=== PATIENT | female | born 1945 | race Caucasian/White ===

== ENCOUNTER 2019-12-23 11:45 | Outpatient (CLI) | payer MEDICARE, OTHER, SELFPAY ==
--- NOTE | ~2019-12-23 | XR_ITS ---
XR hip RT 2V w AP pelvis 12/23/2019 12:20 Indication: Right hip pain Procedure: AP pelvis and 2 views right hip Comparison: No prior studies for comparison. Findings: Pelvic rings are intact. Sacral foramen are symmetric. No fracture or traumatic malalignmen t. There is osteitis pubis. Normal anatomic alignment. No significant joint space narrowing. Impression: 1: No significant bone or joint abnormality. Reviewed, dictated and finalized at location A. Impression: 1: No significant bone or joint abnormality.
[2019-12-23 12:47] LABS: Basophils Absolute Auto 0.1 K/mm3 (0.0-0.1); Basophils Percent Auto 0.7 % (0.2-1.2); Eosinophils Absolute Auto 0.4 K/mm3 (0-0.3); Eosinophils Percent Auto 3.5 % (0-4.4); Hematocrit 39.1 % (37.0-47.0); Hemoglobin 12.9 g/dL (12.0-15.0); Immature Granulocyte Absolute 0.03 K/mm3 (0.00-0.031); Immature Granulocyte Percent A 0.3 % (0-0.5); Lymphocytes Absolute Auto 3.28 K/mm3 (0.9-3.2); Mean Corpuscular Hemoglobin 31.2 pg (26-34); Mean Corpuscular Volume 94.4 fl (80-100); Mean Platelet Volume 9.2 fl (7.4-10.4); Monocytes Absolute Auto 0.6 K/mm3 (0.1-0.6); Monocytes Percent Auto 6.1 % (2.6-8.5); Neutrophils Absolute Auto 5.9 K/mm3 (1.3-6.7); Neutrophils Percent Auto 57.4 % (45.5-73.1); Platelet Count Result 340 k/mm3 (150-375); Red Blood Count 4.14 M/mm3 (4.2-5.4); Red Cell Distribution Width 12.7 % (11.5-14.5); White Blood Count 10.3 K/mm3 (4.5-10.0)
[2019-12-23 12:58] LABS: Alanine Aminotransferase 24 U/L (4-35); Albumin Level 4.2 g/dL (3.5-5.1); Alkaline Phosphatase 85 U/L (38-126); Aspartate Amino Transferase 32 U/L (14-36); Bilirubin,Total 0.4 mg/dL (0.2-1.3); Blood Urea Nitrogen 13 mg/dL (7-17); Calcium 9.2 mg/dL (8.4-10.2); Carbon Dioxide 28 mmol/L (22-30); Chloride 103 mmol/L (98-107); Cholesterol 115 mg/dL (0-200); Estimated Glomerular Filt Rate > 60; Glucose 99 mg/dL (65-105); HDL Direct 52 mg/dL; Sodium 137 mmol/L (137-145); Triglycerides 133 mg/dL (<150)
[2019-12-23 13:09] LABS: LDL Cholesterol Direct 40 mg/dL
[2019-12-23 13:40] LABS: Vitamin D 25 Hydroxy 61.4 ng/mL
[2019-12-27 15:51] LABS: Vitamin B6 34.9 ng/mL (2.1-21.7)
== END 2019-12-23 11:46 | disposition home or self-care (01) ==
LOC: ANHIMG 12:07
PROVIDERS: PCP Family Medicine; Visit Provider Nurse Practitioner
DX: R53.83 Other fatigue (principal); E53.8 Deficiency of other specified B group vitamins; E03.9 Hypothyroidism, unspecified; Z13.220 Encounter for screening for lipoid disorders; E55.9 Vitamin D deficiency, unspecified; Z13.6 Encounter for screening for cardiovascular disorders; E53.9 Vitamin B deficiency, unspecified; M25.551 Pain in right hip
CPT/HCPCS: 36415; 73502; 73521; 80053; 80061; 82306; 82607; 84207; 84443; 85025

== ENCOUNTER 2020-03-02 15:18 | Outpatient (CLI) | payer MEDICARE, OTHER, SELFPAY ==
--- NOTE | ~2020-03-02 | CT_ITS ---
EXAMINATION: CT brain wo con INDICATION: Headache COMPARISON: None TECHNIQUE: Standard unenhanced head CT. The dose-length product (DLP) was 605.33 mGy-cm. The mA was a djusted according to patient size. Iterative reconstruction technique was employed. FINDINGS: There is no acute intraparenchymal hemorrhage. No evidence of mass lesion. No evidence of a cute infarction. There is mild periventricular and subcortical hypodensity probably related to small vessel ischemic disease. There is mild prominence of the sulci and ventricles related to cerebral atr ophy. Intracranial calcified cerebral atherosclerosis is noted. There are no extra-axial collections. There is no mass effect or midline shift. The orbits and soft tissues are unremarkable. The visuali zed sinuses and mastoid air cells are well aerated. IMPRESSION: 1. No acute intracranial abnormality. 2. Age related findings. Reviewed, dictated and finalized at location A.
== END 2020-03-02 15:19 | disposition home or self-care (01) ==
LOC: ANHIMG 15:27
PROVIDERS: PCP Family Medicine; Visit Provider Nurse Practitioner
DX: R51 Headache (principal)
CPT/HCPCS: 70450

== ENCOUNTER 2020-04-16 08:02 | Outpatient (CLI) | payer MEDICARE, OTHER, SELFPAY ==
--- NOTE | 2020-04-16 08:46 | EST_ITS ---
Patient Info Name: Florecita Lane Age: 74 years : 1945 Gender: Female Ht: 60 in Wt: 130 lbs BSA: 1.59 m2 Technical Quality: Good Exam Date: 04/16/2020 9:31 AM Exam Location: [facility] Patient Status: Outpatient Admit Date: 04/16/2020 Staff Ordering Physician: Susu Trujillo NP Senior Embedded Software Engineer: Myra Steele RDCS Attending Provider: JOVANY BRAY DO Referring Physician: Ronnie MARTINEZ; Exercise Technologist: Rocío Belle RDCS Exercise Physician: Jovany Bray DO Exam Type: CA stress echo Study Info Indications I95.1 - ORTHOSTATIC HTN Treadmill exercise stress echocardiogram is performed. Summary 1. 1. Negative Enrique exercise stress test for ischemic ST changes by ECG criteria. 2. 2. Good functional capacity, achieving 8 METs of workload. 3. 3. Appropriate HR response to exercise. 4. 4. Appropriate HR recovery at 1 minute post exercise. 5. 5. Negative stress echocardiogram for ischemia by wall motion analysis. 6. 6. Patient informed of the above results. Stress Echo Findings Left Ventricle Appropriate increase in LV endocardial thickening with systole. Appropriate augmentation of contractility with systole. No wall motion abnormality. Left Ventricle Normal LV systolic function, no wall motion abnormality. Protocol: Enrique Stress ECG Details Stage: REST Duration (min): 1 min : 45 sec Speed (mph): 0.0 Grade (%): 0 HR (bpm): 71 SBP (mmHg): 119 DBP (mmHg): 56 METS: --- Stage: REST Duration (min): 12 min : 7 sec Speed (mph): 0.0 Grade (%): 0 HR (bpm): 88 SBP (mmHg): 119 DBP (mmHg): 56 METS: --- Stage: STAGE 1 Duration (min): 1 min : 0 sec Speed (mph): 1.7 Grade (%): 10 HR (bpm): 102 SBP (mmHg): 119 DBP (mmHg): 56 METS: --- Stage: STAGE 1 Duration (min): 2 min : 0 sec Speed (mph): 1.7 Grade (%): 10 HR (bpm): 108 SBP (mmHg): 119 DBP (mmHg): 56 METS: --- Stage: STAGE 1 Duration (min): 3 min : 0 sec Speed (mph): 1.7 Grade (%): 10 HR (bpm): 110 SBP (mmHg): 158 DBP (mmHg): 56 METS: --- Stage: STAGE 2 Duration (min): 1 min : 0 sec Speed (mph): 2.5 Grade (%): 12 HR (bpm): 113 SBP (mmHg): 158 DBP (mmHg): 56 METS: --- Stage: STAGE 2 Duration (min): 2 min : 0 sec Speed (mph): 2.5 Grade (%): 12 HR (bpm): 121 SBP (mmHg): 157 DBP (mmHg): 55 METS: --- Stage: STAGE 2 Duration (min): 3 min : 0 sec Speed (mph): 2.5 Grade (%): 12 HR (bpm): 124 SBP (mmHg): 157 DBP (mmHg): 55 METS: --- Stage: STAGE 3 Duration (min): 0 min : 49 sec Speed (mph): 0.0 Grade (%): 0 HR (bpm): 128 SBP (mmHg): 173 DBP (mmHg): 57 METS: --- Stage: RECOVERY Duration (min): 0 min : 10 sec Speed (mph): 0.0 Grade (%): 0 HR (bpm): 129 SBP (mmHg): 173 DBP (mmHg): 57 METS: --- Stage: RECOVERY Duration (min): 1 min : 10 sec Speed (mph): 0.0 Grade
== END 2020-04-16 08:03 | disposition home or self-care (01) ==
PROVIDERS: PCP Family Medicine; Visit Provider Nurse Practitioner
DX: I95.1 Orthostatic hypotension (principal); R06.02 Shortness of breath
CPT/HCPCS: 93351

== ENCOUNTER 2020-05-04 14:43 | Outpatient (CLI) | payer MEDICARE, OTHER, SELFPAY ==
[2020-05-04 15:12] LABS: Alanine Aminotransferase 19 U/L (4-35); Aspartate Amino Transferase 29 U/L (14-36)
== END 2020-05-04 14:44 | disposition home or self-care (01) ==
PROVIDERS: PCP Family Medicine; Visit Provider Podiatrist Foot & Ankle Surgery
DX: B35.1 Tinea unguium (principal)
CPT/HCPCS: 36415; 84450; 84460

== ENCOUNTER 2020-06-29 10:16 | Outpatient (CLI) | payer MEDICARE, OTHER, SELFPAY ==
[2020-06-29 11:00] LABS: Alanine Aminotransferase 21 U/L (4-35); Albumin Level 4.2 g/dL (3.5-5.1); Alkaline Phosphatase 84 U/L (38-126); Anion Gap 6 mmol/L (8-16); Aspartate Amino Transferase 27 U/L (14-36); Bilirubin,Total 0.6 mg/dL (0.2-1.3); Blood Urea Nitrogen 16 mg/dL (7-17); Calcium 9.2 mg/dL (8.4-10.2); Carbon Dioxide 31 mmol/L (22-30); Chloride 102 mmol/L (98-107); Estimated Glomerular Filt Rate > 60; Glucose 100 mg/dL (65-105); Potassium 4.3 mmol/L (3.4-5.0); Sodium 139 mmol/L (137-145)
== END 2020-06-29 10:17 | disposition home or self-care (01) ==
PROVIDERS: PCP Family Medicine; Visit Provider Family Medicine
DX: E03.9 Hypothyroidism, unspecified (principal); I10 Essential (primary) hypertension
CPT/HCPCS: 36415; 80053; 84443

== ENCOUNTER 2020-08-10 08:49 | Outpatient (CLI) | payer MEDICARE, OTHER, SELFPAY ==
[2020-08-10 09:32] LABS: Alanine Aminotransferase 24 U/L (4-35); Aspartate Amino Transferase 29 U/L (14-36)
== END 2020-08-10 08:50 | disposition home or self-care (01) ==
PROVIDERS: PCP Family Medicine; Visit Provider Podiatrist Foot & Ankle Surgery
DX: B35.1 Tinea unguium (principal)
CPT/HCPCS: 36415; 84450; 84460

== ENCOUNTER 2020-09-21 01:57 | Outpatient (CLI) | payer MEDICARE, OTHER, SELFPAY ==
[2020-09-21 18:52] LABS: SARS-CoV-2 RNA PCR Negative
== END 2020-09-21 01:58 | disposition home or self-care (01) ==
LOC: ANHCOVIDDT 01:58
PROVIDERS: PCP Family Medicine; Visit Provider Orthopaedic Surgery
DX: Z01.812 Encounter for preprocedural laboratory examination (principal); Z20.828 Contact with and (suspected) exposure to other viral communicable diseases
CPT/HCPCS: 87635; C9803; U0003

== ENCOUNTER 2020-09-22 09:26 | Outpatient (CLI) | payer MEDICARE, OTHER, SELFPAY ==
[2020-09-22 10:00] LABS: Anion Gap 5 mmol/L (8-16); Blood Urea Nitrogen 16 mg/dL (7-17); Calcium 9.3 mg/dL (8.4-10.2); Carbon Dioxide 33 mmol/L (22-30); Chloride 100 mmol/L (98-107); Estimated Glomerular Filt Rate > 60; Glucose 101 mg/dL (65-105); Potassium 4.5 mmol/L (3.4-5.0); Sodium 138 mmol/L (137-145)
== END 2020-09-22 09:27 | disposition home or self-care (01) ==
LOC: ANHSURGERY 09:30
PROVIDERS: Anesthesiology; PCP Family Medicine; Visit Provider Orthopaedic Surgery
DX: Z01.812 Encounter for preprocedural laboratory examination (principal); M19.041 Primary osteoarthritis, right hand; I10 Essential (primary) hypertension
CPT/HCPCS: 36415; 80048

== ENCOUNTER 2020-09-24 00:04 | Day surgery (SDC) | payer MEDICARE, OTHER, SELFPAY ==
[2020-09-18 09:30] VITALS: BMI 24.5
--- NOTE | 2020-09-23 17:11 | PM.IMHP ---
H&P: HPI History of Present Illness Date/Time: 09/23/20 17:11 Hand/Wrist Pain Rt hand/thumb pain. Pt states that she noticed the pain increasing approximately 1 year ago. Pt has been using topical antiinflammatories and heat, which were helping, but now are not. Pt had a LT Carpectomy approximately 4 years ago at [facility]. Involved hand: right Involved wrist: right Dominant hand: right Onset: gradual Timing: >1 year Location of pain: radial wrist and thumb Character: stabbing and throbbing Timing of pain: constant Associated symptoms: Reports swelling and weakness; Denies fever(s), erythema or warmth Exacerbated by: writing, manipulative tasks, motion and prolonged activities Relieved by: NSAIDs, rest and other (topical creams) Swelling: No History of occupational/recreational activity with repetitive movement: No History of prior hand/wrist injury: No Chief Complaint Chief Complaint: see Reason for Visit Duration: years Severity: moderate Associated signs and symptoms: symptoms reported: (see hpi ) Exacerbating/relieving factors: exacerbating factors: (see hpi ) and relieving factors: (see hpi ) Chief complaint: Right Thumb Arthritis Narrative: Florecita Lane is a 74 year old female Review of Systems Constitutional: Constitutional: Denies fever(s) Eyes: Eyes: Denies blurry vision ENT: Reports Normal hearing present Cardiovascular: Cardiovascular: Denies chest pain and Denies dyspnea Respiratory: Respiratory: Denies dyspnea and Denies wheezing Gastrointestinal: Gastrointestinal: Denies abdominal pain Genitourinary: Genitourinary: Denies urinary urgency Musculoskeletal: Musculoskeletal: Reports as per HPI and Denies numbness Integumentary/Breasts: Skin/Breast: Denies changing lesions and Denies sores Neurologic: Reports Normal hearing present, Denies behavioral changes, Denies confusion, Denies numbness and Denies convulsions Psychiatric: Psychiatric: Denies behavioral changes, Denies confusion and Denies hallucinations Endocrine: Endocrine: Denies heat intolerance Hematologic/Lymphatic: Hematologic/Lymphatic: Denies easy bleeding Allergic/Immunologic: Allergic/Immunologic: Denies wheezing PMFSH Past Medical History Medical History Anxiety Anxiety disorder, unspecified Arthritis Arthritis of carpometacarpal (CMC) joint of right thumb Asthma Cellulitis Chills Chronic neck and back pain Constipation Depression Diarrhea Environmental allergies Essential (primary) hypertension Fever Frequent headaches GERD (gastroesophageal reflux disease) History of adverse reaction to anesthesia Hypokalemia Irritable bowel syndrome with predominant constipation Osteoarthritis Osteopenia Osteoporosis Pain of right thumb Pneumonia Seasonal allergies Weight gain Surgical History Surgical History History of appendectomy 1971 History of back surgery (~10/16/92) History of cervical spinal surgery History of hand surgery left hand - 2014 Carpectomy History of laparoscopic cholecystectomy 1992 History of left knee replacement 2018 History 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 Grandparent , paternal side both cancer unspecified. No problems noted. Other Arthritis Social History Social History Social History: drinks 2 cups of decaf per day. Smoking status: Never smoker Second hand tobacco smoke exposure: No Alcohol intake: never Substance use: never Substance use type: does not use Gender identity (if verbalized by the patient): Female Spiritual care concerns: No Meds Home Medications and Allergies H
[2020-09-24] VITALS (7 sets, daily range): BP systolic 115–150; BP diastolic 52–75; PULSE 83–96; RESP 10–20; TEMP 36.4; O2SAT 94–98
--- NOTE | ~2020-09-24 | XR_ITS ---
EXAMINATION: XR surgery orthopedic DATE: 09/24/2020 09:57 INDICATION: Right thumb arthroplasty TECHNIQUE: 3 fluoroscopic spot images of the right hand were obtained during procedure performed by Gagandeep Keane. Radiologist was not present for the imaging or procedure. The amount of fluoroscopy time used during this procedure was 0.3 minutes. COMPARISON: 08/19/2020 FINDINGS: Right first carpal metacarpal suspension arthroplasty with resection of the trapezium. There is expec morgan postoperative gas in the resection bed. Several subarticular cystic change at the base of the fir st metacarpal related to prior osteoarthritis. No acute fracture. IMPRESSION: 1. Expected appearance post trapezium resection for first carpal metacarpal suspension arthroplasty. Reviewed, dictated and finalized at location A. ER SETUP OPERATOR IMPRESSION: 1. Expected appearance post trapezium resection for first carpal metacarpal millicent pension arthroplasty.
[2020-09-24] MEDS: ACETAMINOPHEN 500 MG TABLET 1000 MG PO (06:23)
[2020-09-24] MEDS: LACTATED RINGERS 1,000 ML 30 ML IV CONT (06:25)
[2020-09-24] MEDS: KETOROLAC 15 MG/ML VIAL (*BKC) IV PUSH (06:36)
--- NOTE | 2020-09-24 06:45 | WPDHPUPDATE1 ---
History and Physical Update Update Date/Time: 09/24/20 06:45 History and Physical has been reviewed, including an updated exam of the patient. There are NO changes in the patient's condition. Covid test negative. Risks, benefits, and alternatives have been discussed and questions answered. Patient agrees to proceed with procedure.
--- NOTE | 2020-09-24 07:05 | WPDANESEPPF ---
Anes - Initial Pre Proc Eval Procedure: Operation Date: 09/24/20 07:30 Proposed Procedures p Right Thumb Carpal Metacarpal Arthroplasty - Jordy Keane MD Date/Time: 09/24/20 07:05 Surgeon: Jordy Keane MD Pre Op Diagnosis: Right Thumb Arthritis Patient Data Age: 74 Gender: F Height: 5 ft 1 in Weight: 63.1 kg Last Vital Signs Temp 97.5 F L 09/24/20 06:00 Pulse 84 09/24/20 06:00 Resp 20 09/24/20 06:00 BP 115/52 L 09/24/20 06:00 Pulse Ox 97 09/24/20 06:00 Allergies Allergy/AdvReac Type Severity Reaction Status Date / Time propoxyphene [From Darvon] Allergy Severe vomiting Verified 09/24/20 06:22 tramadol [From Ultram] Allergy Severe SEVERE Verified 09/24/20 06:22 RESP DEPRESSION codeine AdvReac Severe hallucinati Verified 09/24/20 06:22 ons Home Medications Medication Instructions Recorded Confirmed Type albuterol sulfate 90 mcg/actuation 1 puff INHALATION Q4H PRN 12/17/19 09/18/20 History aerosol inhaler bacillus coagulans-inulin 1 1 cap PO DAILY 12/17/19 09/24/20 History billion cell-250 mg capsule fluticasone propionate 50 1 spray NASAL DAILY #15.8 ml 12/17/19 09/24/20 Rx mcg/actuation nasal spray,suspension multivitamin,tx-minerals 1 tablet PO DAILY 12/17/19 09/24/20 History polyethylene glycol 3350 17 17 gm PO BID 12/17/19 09/24/20 History gram/dose oral powder potassium chloride 10 mEq 10 meq PO DAILY 12/17/19 09/24/20 History capsule,extended release sennosides 8.6 mg-docusate sodium 1 tab-cap PO DAILY 12/17/19 09/24/20 History 50 mg tablet vitamin B complex 1 cap PO DAILY 12/17/19 09/24/20 History levothyroxine 100 mcg tablet 100 mcg PO DAILY #30 tablet 03/23/20 09/24/20 Rx duloxetine 60 mg capsule,delayed 60 mg PO DAILY #90 cap 05/05/20 09/24/20 Rx release hydrochlorothiazide 25 mg tablet 25 mg PO DAILY tablet 06/29/20 09/24/20 History celecoxib 200 mg capsule 200 mg PO Q12H cap 07/29/20 09/24/20 History lubiprostone 24 mcg capsule 24 mcg PO BID #180 cap 07/29/20 09/24/20 Rx coenzyme Q10 100 mg capsule 100 mg PO DAILY 08/19/20 09/24/20 History cyclobenzaprine 5 mg tablet 5 mg PO TID PRN 08/19/20 09/24/20 History calcium 600 mg PO DAILY 09/17/20 09/24/20 History fluticasone propion-salmeterol 1 inhalation INHALATION PRN PRN 09/18/20 09/24/20 History [Advair Diskus] terbinafine HCl 250 mg PO DAILY 09/18/20 09/24/20 History Patient hx anesthesia problems: none Family hx anesthesia problems: none PMFSH Past Medical History Medical History Anxiety Anxiety disorder, unspecified Arthritis Arthritis of carpometacarpal (CMC) joint of right thumb Asthma Cellulitis Chills Chronic neck and back pain Constipation Depression Diarrhea Environmental allergies Essential (primary) hypertension Fever Frequent headaches GERD (gastroesophageal reflux disease) History of adverse reaction to anesthesia Hypokalemia Irritable bowel syndrome with predominant constipation Osteoarthritis Osteopenia Osteoporosis Pain of right thumb Pneumonia Seasonal allergies Weight gain Surgical History Surgical History History of appendectomy 1972 History of back surgery (~10/16/92) History of cervical spinal surgery History of hand surgery left hand - 2014 Carpectomy History of laparoscopic cholecystectomy 1992 History of left knee replacement 2018 History 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 Grandparent , paternal side both cancer unspecified. No problems noted. Other Arthritis Social History Social History Social History: drinks 2 cups of decaf per day. Smoking
[2020-09-24] MEDS: ceFAZolin 2 GM/D5W 50 ML 2 GM/50 ML BAG IVPB (08:43)
[2020-09-24] MEDS: BUPIVACAINE HCL 0.5% PF 30 ML VIAL INFILTRATE (09:23)
--- NOTE | 2020-09-24 10:15 | PM.PROC ---
Procedure Note - Detailed Date of procedure: 09/24/20 Pre-op diagnosis: Right Thumb Arthritis Post-op diagnosis: same Procedure performed: Right thumb carpometacarpal arthroplasty with suspension trapezii ectomy. Description of procedure: Indications: Patient is a 74-year-old woman with right thumb carpometacarpal joint arthritis. She has failed conservative treatment. She had successful surgery on the left such. She presents now for same. What was done: Patient identified in the preoperative holding. Informed consent given. Operative extremity marked. Patient received intravenous antibiotics. Patient brought to the operating room where underwent general anesthetic by anesthesia team. Positioned supine on operating room table. Time-out performed confirming the patient, site of the surgery and the plan. Right upper extremity prepped draped usual sterile surgical fashion using a ChloraPrep skin solution. Hand and wrist exsanguinated and an arm tourniquet inflated to 250 mmHg. Longitudinal incision made at the border between the palmar and dorsal skin over the base of the thumb with a 15 blade knife. Hemostasis controlled electrocautery. Care taken to retract the neurovascular elements. Capsule was incised line with skin incision. The trapezium was identified with use of fluoroscopy. We then shelled out the trapezium as 1 unit and this. Suspension plasty then performed with the Arthrex suture bridge. A guide hole was placed in base of the 2nd metatarsal. Second hole placed at the base of 1st metatarsal. The suture bridge was then attached with PushLock anchors. Good suspension noted. The thumb was held and abducted extended position for the repair. Wound thoroughly irrigated with antibiotic solution. The tourniquet was released meticulous hemostasis obtained. Capsule then repaired with 3 Monocryl interrupted suture. Subcutaneous tissue repaired for Monocryl Sineff suture and skin repaired with 4 nylon running suture. Sterile dressing applied. Padded splint then applied. The patient was then woken from anesthesia, extubated and taken to the recovery room in stable condition. All sponge, needle, instrument counts were correct at the end of the case. Implants: Arthrex suture bridge Anesthesia: GLMA Surgeon: Jordy Keane MD Drawing Tender: 1st dental ceramist assistant Estimated blood loss (mL): 5 Tourniquet time (min): 32 Drains: No Packing: No Pathology: none sent Complications: None Condition: stable Disposition: PACU
== END 2020-09-24 11:35 | disposition home or self-care (01) ==
PROVIDERS: PCP Family Medicine; Visit Provider Orthopaedic Surgery
PROC: (CPT 25447; principal; 2020-09-24 07:30)
DX: M18.11 Unilateral primary osteoarthritis of first carpometacarpal joint, right hand (principal); I10 Essential (primary) hypertension; J45.909 Unspecified asthma, uncomplicated; F41.8 Other specified anxiety disorders; K58.1 Irritable bowel syndrome with constipation; K21.9 Gastro-esophageal reflux disease without esophagitis; M81.0 Age-related osteoporosis without current pathological fracture
CPT/HCPCS: 25447; A9270; C1713; J0690; J1100; J1885; J2405; J2704; J3010; J7120

== ENCOUNTER 2020-10-19 17:01 | Outpatient (CLI) | payer MEDICARE, OTHER, SELFPAY ==
--- NOTE | ~2020-10-19 | XR_ITS ---
EXAMINATION: [id number]_CR EXAM DATE: 10/19/2020 17:36 INDICATION: Recent fall, left lower rib pain. TECHNIQUE: Frontal projection of the upper left ribs, frontal projection of the lower left ribs, obli que projection of the left ribs. Frontal projection of the upper right ribs, frontal projection of t he lower right ribs, oblique projection of the right ribs, frontal chest x-ray(s) for interpretation. There is no prior study for comparison. FINDINGS: There are no displaced acute rib fractures identified. Consider educating patient that tyron n if there is a radiographically occult nondisplaced rib fracture, there is no specific treatment oth er than to refrain from activity that prevents healing. No confluent consolidation, pneumothorax or pleural effusion suspected. Cardiomediastinal silhouette is normal. Lower cervical fusion hardware. There are cholecystectomy clips. IMPRESSION: No acute displaced rib fractures bilaterally. Reviewed, dictated and finalized at location A. LWORKER
--- NOTE | ~2020-10-19 | XR_ITS ---
EXAMINATION: XR_[id number]_CR EXAM DATE: 10/19/2020 17:38 INDICATION: Cervicalgia. Right-sided neck pain, headaches. Recent fall. TECHNIQUE: Cervical spine frontal, lateral, open-mouth odontoid and submental vertex odontoid projec tions. Submentovertex projection. There is no prior study for comparison. FINDINGS: Cervical fusion hardware C4-7 with interbody devices. There is advanced cervical spondylosi s. The odontoid projections are limited. There is predens space which is larger than typically seen, but could be degenerative. Prevertebral soft tissue and pre-dens space are within normal limits. Ther e is advanced cervical arthropathy. There is moderate loss of the C7-T1 disc height with 2 mm anterol isthesis. Mild to moderate loss of the C2-3 and L3-4 disc heights. IMPRESSION: Limitations due to hardware and spondylosis. No acute fracture identified but if fractur e is clinical possibility then recommend CT scan. Reviewed, dictated and finalized at location A. ER DELIVERY IMPRESSION: Limitations due to hardware and spondylosis. No acute fracture brian ntified but if fracture is clinical possibility then recommend CT scan.
== END 2020-10-19 17:02 | disposition home or self-care (01) ==
PROVIDERS: PCP Family Medicine; Visit Provider Family Medicine
DX: M54.2 Cervicalgia (principal); W19.XXXA Unspecified fall, initial encounter; R07.81 Pleurodynia; Z98.1 Arthrodesis status; M47.816 Spondylosis without myelopathy or radiculopathy, lumbar region
CPT/HCPCS: 71111; 72040

== ENCOUNTER 2020-11-17 01:11 | Outpatient (CLI) | payer MEDICARE, OTHER, SELFPAY ==
[2020-11-17 19:18] LABS: SARS-CoV-2 RNA PCR Negative
== END 2020-11-17 01:12 | disposition home or self-care (01) ==
LOC: ANHCOVIDDT 01:13
PROVIDERS: PCP Family Medicine; Visit Provider Podiatrist Foot & Ankle Surgery
DX: Z01.812 Encounter for preprocedural laboratory examination (principal); Z20.822 Contact with and (suspected) exposure to COVID-19
CPT/HCPCS: C9803; U0003; U0005

== ENCOUNTER 2020-11-20 01:43 | Day surgery (SDC) | payer MEDICARE, OTHER, SELFPAY ==
[2020-11-16 09:38] VITALS: BMI 25.4
--- NOTE | 2020-11-16 09:43 | PC.NURSE ---
PT STATES NO CHANGE IN HEALTH HX SINCE LAST INTERVIEW ON 09/18/20
--- NOTE | 2020-11-19 16:22 | WPDANESEPPF ---
Anes - Initial Pre Proc Eval Procedure: Operation Date: 11/20/20 11:00 Proposed Procedures p Fusion Left First Metatarsalphalangeal Joint - Abner Menendez JR, MD Date/Time: 11/19/20 16:22 Surgeon: Abner Menendez JR, MD Pre Op Diagnosis: hallux varus left foot Patient Data Age: 74 Gender: F Height: 1.55 m Weight: 61.25 kg Allergies Allergy/AdvReac Type Severity Reaction Status Date / Time propoxyphene [From Darvon] Allergy Severe vomiting Verified 11/16/20 09:23 tramadol [From Ultram] Allergy Severe SEVERE Verified 11/16/20 09:23 RESP DEPRESSION codeine AdvReac Severe hallucinati Verified 11/16/20 09:23 ons Home Medications Medication Instructions Recorded Confirmed Type albuterol sulfate 90 mcg/actuation 1 puff INHALATION Q4H PRN 12/17/19 11/16/20 History aerosol inhaler bacillus coagulans-inulin 1 1 cap PO DAILY 12/17/19 11/16/20 History billion cell-250 mg capsule fluticasone propionate 50 1 spray NASAL DAILY #15.8 ml 12/17/19 11/16/20 Rx mcg/actuation nasal spray,suspension multivitamin,tx-minerals 1 tablet PO DAILY 12/17/19 11/16/20 History polyethylene glycol 3350 17 17 gm PO BID 12/17/19 11/16/20 History gram/dose oral powder potassium chloride 10 mEq 10 meq PO DAILY 12/17/19 11/16/20 History capsule,extended release vitamin B complex 1 cap PO DAILY 12/17/19 11/16/20 History levothyroxine 100 mcg tablet 100 mcg PO DAILY #30 tablet 03/23/20 11/16/20 Rx hydrochlorothiazide 25 mg tablet 25 mg PO DAILY tablet 06/29/20 11/16/20 History celecoxib 200 mg capsule 200 mg PO Q12H cap 07/29/20 11/16/20 History lubiprostone 24 mcg capsule 24 mcg PO BID #180 cap 07/29/20 11/16/20 Rx coenzyme Q10 100 mg capsule 100 mg PO DAILY 08/19/20 11/16/20 History cyclobenzaprine 5 mg tablet 5 mg PO TID PRN 08/19/20 11/16/20 History calcium 600 mg PO DAILY 09/17/20 11/16/20 History fluticasone propion-salmeterol 1 inhalation INHALATION PRN PRN 09/18/20 11/16/20 History [Advair Diskus] hydrocodone-acetaminophen [[place]] 1 tablet PO Q6H PRN #20 tablet 09/24/20 11/16/20 Rx duloxetine 60 mg capsule,delayed See Rx Instructions .ROUTE 11/03/20 11/16/20 Rx release .COMPLEX #90 cap Patient hx anesthesia problems: none Family hx anesthesia problems: none PMFSH Past Medical History Medical History Anxiety Anxiety disorder, unspecified Arthritis Arthritis of carpometacarpal (CMC) joint of right thumb Asthma Cellulitis Chills Chronic neck and back pain Constipation Depression Diarrhea Environmental allergies Essential (primary) hypertension Fever Frequent headaches GERD (gastroesophageal reflux disease) History of adverse reaction to anesthesia Hypokalemia Irritable bowel syndrome with predominant constipation Osteoarthritis Osteopenia Osteoporosis Pain of right thumb Pneumonia Seasonal allergies Weight gain Surgical History Surgical History History of appendectomy 1972 History of back surgery (~10/16/92) History of cervical spinal surgery History of hand surgery left hand - 2014 Carpectomy History of laparoscopic cholecystectomy 1992 History of left knee replacement 2018 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 Grandparent , paternal side both cancer unspecified. No problems noted. Other Arthritis Social History Social History Social History: drinks 2 cups of decaf per day. Smoking status: Never smoker Second hand tobacco smoke exposure: No Alcohol intake: never Substance use: never Substance use type: does not use Living arrangements: with family Gender identity (if verba
--- NOTE | ~2020-11-20 | XR_ITS ---
EXAMINATION: XR surgery orthopedic EXAM DATE: 11/20/2020 12:32 INDICATION: Left foot fusion. TECHNIQUE: Fluoroscopy used during XR surgery orthopedic performed by Dr. Abner Menendez JR MD. The DAP for this procedure was 0.4 cGycm2. No prior FINDINGS: Frontal and lateral images demonstrate left 1st MTP joint arthrodesis with dorsally locate d plate and supporting screws. Correlate with procedure note. Correlate with procedure note. IMPRESSION: Fluoroscopy used during left 1st MTP arthrodesis. Reviewed, dictated and finalized at location B. [employer]
--- NOTE | 2020-11-20 07:15 | WPDHPUPDATE1 ---
History and Physical Update Update Date/Time: 11/20/20 07:15 History and Physical has been reviewed, including an updated exam of the patient. There are NO changes in the patient's condition. Risks, benefits, and alternatives have been discussed and questions answered. Patient agrees to proceed with procedure.
[2020-11-20] MEDS: LACTATED RINGERS 1,000 ML 30 ML IV CONT ×2 (10:30→12:52)
[2020-11-20] MEDS: ceFAZolin 2 GM/D5W 50 ML 2 GM/50 ML BAG IVPB (11:19)
[2020-11-20 12:52] VITALS: BP 132/64; PULSE 94; RESP 11; TEMP 36.9; O2SAT 98
[2020-11-20 13:05] VITALS: BP 131/63; PULSE 92; RESP 13; O2SAT 99
[2020-11-20 13:19] VITALS: BP 151/76; PULSE 97; RESP 16; O2SAT 93
[2020-11-20 13:35] VITALS: BP 136/71; PULSE 91; RESP 14; O2SAT 92
[2020-11-20 14:05] VITALS: BP 120/76; PULSE 92; RESP 16
--- NOTE | 2020-11-20 14:22 | PM.PROC ---
Procedure Note - Detailed Date of procedure: 11/20/20 Pre-op diagnosis: hallux varus left foot Procedure performed: Arthrodesis of the first metatarsal phalangeal joint left foot Implants: [employer] Cross Check plate with 4 (2.7mm locking screws) one 3.5mm lag screw Anesthesia: GLMA and local Surgeon: Abner Menendez JR, DPM Estimated blood loss (mL): 1 Drains: No Packing: No Pathology: none sent Complications: No immediate complications Condition: stable Disposition: same day Findings: PROCEDURE IN DETAIL: Under mild sedation, the patient was brought into the operating room, placed on the operating table in supine position. A pneumatic ankle tourniquet was placed about the patient's left ankle. Following general LMA, a local anesthetic block was obtained about the foot and ankle utilizing 20 cc of Exparel. The foot was then scrubbed, prepped, and draped in the usual aseptic manner. An Esmarch bandage was then used to exsanguinate the patient's foot and the pneumatic ankle tourniquet was then inflated. Surgery began in the following manner: Attention was directed to the dorsal aspect of the 1st metatarsophalangeal joint where the patient had an adductus position of the hallux. The incision was made starting along the central shaft of the 1st metatarsal and extending just proximal to the interphalangeal joint of the hallux. The incision was continued deep down through the subcutaneous tissues using sharp and blunt dissection. All bleeders were cauterized as necessary. At this point, the dissection was continued down to the level of the periosteum and capsular structures overlying the 1st metatarsophalangeal joint. A full length periosteum and capsular incision was made just medial to the extensor hallucis longus tendon. The periosteum and capsular structures were freed from the base of the proximal phalanx as well as the distal 1st metatarsal. At this point, the 1st metatarsophalangeal joint was identified. There was some degrees of loss of articular cartilage to the head of the 1st metatarsal as well as the base of the proximal phalanx. There was no significant broadening and hypertrophy of the 1st metatarsophalangeal joint. Utilizing a sagittal bone saw, the hypertrophied 1st metatarsal was resected dorsally, medially, and laterally. A power bur was used to make sure that there were no rough edges and also to further debride the hypertrophic 1st metatarsal. At this point, the reamer system for the [employer] CrossCHECK system was used to denude the degenerative cartilage from the head of the 1st metatarsal as well as the base of the proximal phalanx. The cartilage and subchondral bone were fully debrided utilizing the reamer system until healthy bleeding bone was noted. Next, a 2-0 drill bit was used to further fenestrate the head of the 1st metatarsal as well as the base of the proximal phalanx in order to allow fusion across the 1st metatarsophalangeal joint. Next, a 0.045 inch K-wire was driven from the medial aspect of the base of the proximal phalanx into the head of the 1st metatarsal in order to serve as temporary fixation. A large steel plate was used to make sure that the hallux was in a rectus position both in the sagittal plane as well as the frontal and transverse plane. Excellent position of the hallux was noted. Next, a CrossCHECK plate was placed atop the 1st metatarsophalangeal joint held in position with [place] wires. Utilizing standard principles and techniques, the 2 distal drill holes were drilled and two 2.7 mm fully-threaded locking screws were driven from dorsal to plantar holding the distal aspect of the plate intact. At this point, a lag screw was driven from dorsal distal to proximal plantar across the 1st metatarsophalangeal joint through the plate system with excellent compression noted after careful removal of the olive wire and temporary fixation from the 1st metatarsophalangeal joint. Next, 2 p
[2020-11-20 14:27] VITALS: BP 131/57; PULSE 90; RESP 16
== END 2020-11-20 14:57 | disposition home or self-care (01) ==
PROVIDERS: PCP Family Medicine; Visit Provider Podiatrist Foot & Ankle Surgery
PROC: (CPT 28750; principal; 2020-11-20 11:00)
DX: M20.32 Hallux varus (acquired), left foot (principal); E03.9 Hypothyroidism, unspecified; Z79.51 Long term (current) use of inhaled steroids; M19.90 Unspecified osteoarthritis, unspecified site; J45.909 Unspecified asthma, uncomplicated; K21.9 Gastro-esophageal reflux disease without esophagitis; E87.6 Hypokalemia; M81.0 Age-related osteoporosis without current pathological fracture; F41.8 Other specified anxiety disorders; I10 Essential (primary) hypertension; K58.1 Irritable bowel syndrome with constipation
CPT/HCPCS: 28755; C1713; C9290; J0690; J1100; J2250; J2405; J2704; J3010; J7120

== ENCOUNTER 2020-12-31 13:55 | Outpatient (CLI) | payer MEDICARE, OTHER, SELFPAY ==
--- NOTE | ~2020-12-31 | XR_ITS ---
[id number] DATE: 12/31/2020 14:21 INDICATION: Lower lateral left rib pain TECHNIQUE: PA chest. 3 views of the left ribs. COMPARISON: None FINDINGS: There is diffuse osteopenia. No displaced rib fracture is noted on the left. Status post anterior cervical spine surgical fusion. Normal heart size. No hilar or mediastinal enlargement. No pulmonary infiltrate or consolidation, ple ural effusion or pulmonary vascular congestion or pneumothorax. Surgical clips, right upper quadrant, consistent with cholecystectomy. IMPRESSION: No displaced rib fracture is detected Diffuse osteopenia No active cardiac pulmonary disease Status post surgical cervical spine fusion Reviewed, dictated and finalized at Location A. Reviewed, dictated and finalized at location A.
== END 2020-12-31 13:56 | disposition home or self-care (01) ==
PROVIDERS: PCP Family Medicine; Visit Provider Family Medicine
DX: R07.81 Pleurodynia (principal); M85.88 Other specified disorders of bone density and structure, other site; Z98.1 Arthrodesis status
CPT/HCPCS: 71101

== ENCOUNTER 2021-01-01 11:30 | Outpatient (CLI) | payer MEDICARE, OTHER, SELFPAY ==
[2021-01-01 12:06] LABS: Alanine Aminotransferase 20 U/L (4-35); Aspartate Amino Transferase 26 U/L (14-36)
== END 2021-01-01 11:31 | disposition home or self-care (01) ==
PROVIDERS: PCP Family Medicine; Visit Provider Podiatrist Foot & Ankle Surgery
DX: B35.1 Tinea unguium (principal)
CPT/HCPCS: 36415; 84450; 84460

== ENCOUNTER 2021-01-14 12:25 | Outpatient (CLI) | payer MEDICARE, OTHER, SELFPAY ==
--- NOTE | ~2021-01-14 | MMUS_ITS ---
EXAMINATION: MM diagnostic [place] BI w ashleigh, US breast LT limited HISTORY: Pain in the outer left breast TECHNIQUE: Craniocaudal, mediolateral, and mediolateral oblique 3-D tomosynthesis images of the breas ts were performed and synthetic 2-D images were generated. CAD analysis was submitted and interpreted . High resolution limited left breast ultrasound was performed. COMPARISON: No prior mammogram is currently available for comparison. BREAST PARENCHYMAL COMPOSITION: The breasts are almost entirely fatty. FINDINGS: MAMMOGRAPHIC FINDINGS: There is no evidence of suspicious mass, calcification, or architectural distortion in either breast to suggest malignancy. No mammographic correlate is identified for the patient's reported left breas t pain. ULTRASOUND: There is no evidence of focal abnormal solid or cystic mass in the vicinity of the patient's left magnus ast pain IMPRESSION: 1. No specific mammographic or sonographic correlate is identified for the patient's reported left br east pain. Further evaluation at this time should be based on clinical assessment. Continued follow-u p physical examination is recommended. 2. Recommend routine screening mammography in one year. BI-RADS Category 1: Negative Reviewed, dictated and finalized at location A. IMPRESSION: 1. No specific mammographic or sonographic correlate is identified for the katerine ent's reported left breast pain. Further evaluation at this time should be base d on clinical assessment. Continued follow-up physical examination is recommend ed. 2. Recommend routine screening mammography in one year. BI-RADS Category 1: Negative
== END 2021-01-14 12:26 | disposition home or self-care (01) ==
LOC: ANHIMG 12:27
PROVIDERS: PCP Family Medicine; Visit Provider Family Medicine
DX: N64.4 Mastodynia (principal); R07.1 Chest pain on breathing
CPT/HCPCS: 76642; 77062; 77066; G0279

== ENCOUNTER 2021-01-29 10:23 | Outpatient (CLI) | payer MEDICARE, OTHER, SELFPAY ==
[2021-01-29 10:56] LABS: Alanine Aminotransferase 20 U/L (4-35); Albumin Level 4.3 g/dL (3.5-5.1); Alkaline Phosphatase 81 U/L (38-126); Anion Gap 4 mmol/L (8-16); Aspartate Amino Transferase 28 U/L (14-36); Bilirubin,Total 0.4 mg/dL (0.2-1.3); Blood Urea Nitrogen 20 mg/dL (7-17); Calcium 8.9 mg/dL (8.4-10.2); Carbon Dioxide 34 mmol/L (22-30); Chloride 101 mmol/L (98-107); Estimated Glomerular Filt Rate > 60; Glucose 105 mg/dL (65-105); Potassium 3.9 mmol/L (3.4-5.0); Sodium 139 mmol/L (137-145)
== END 2021-01-29 10:24 | disposition home or self-care (01) ==
LOC: ANHLAB 10:27
PROVIDERS: PCP Family Medicine; Visit Provider Family Medicine
DX: I10 Essential (primary) hypertension (principal); E03.9 Hypothyroidism, unspecified
CPT/HCPCS: 36415; 80053; 84443

== ENCOUNTER 2021-02-18 11:53 | Outpatient (CLI) | payer MEDICARE, OTHER, SELFPAY ==
--- NOTE | ~2021-02-18 | DEXA_ITS ---
Bone Density Report Name: Florecita Lane Age: 75 Sex: Female Ethnicity: White Date of : 1945 Indication: postmenopausal; height loss; history of glucocorticoids; asthma or emphysema; hysterectomy; Referring Provider: Quang Colin Study: Bone densitometry was performed. Exam Date: February 18, 2021 Accession number: [id number] Bone Density: Region BMD T-score Z-score Classification AP Spine (L1, L3, L4) 0.999 -0.5 1.8 Normal Femoral Neck (Left) 0.593 -2.3 -0.3 Osteopenia Total Hip (Left) 0.791 -1.2 0.4 Osteopenia Total Hip Bilateral Avg 0.799 -1.2 0.5 Osteopenia Femoral Neck (Right) 0.640 -1.9 0.1 Osteopenia Total Hip (Right) 0.805 -1.1 0.6 Osteopenia World Health Organization criteria for BMD impression classify patients as: Normal (T-score at or above -1.0), Osteopenia (T-score between -1.0 and -2.5), or Osteoporosis (T-score at or below -2.5). 10-year Fracture Risk(1): Major Osteoporotic Fracture 22% Hip Fracture 6.4% Reported Risk Factors: [place] (), Neck BMD=0.593, BMI=26.4, glucocorticoids (1) FRAX(R) Version 3.08. Fracture probability calculated for an untreated patient. Fracture probability may be lower if the patient has received treatment. Clinical Information Provided by Patient: Has taken Glucocorticoids Has used the following medications: Vitamin D, Calcium Has the following medical conditions: Asthma or Emphysema, Hysterectomy Patient maximum height was 62.2 Menopause Age: 38 No regular weight bearing exercise Drinks caffeinated beverages Onset of menses at age 15 Number of children 2 Impression: The patient has low bone mass, based on the Left Femoral Neck T-score. The patient has an estimated ten-year risk of hip fracture of 6.4% and an estimated ten-year risk of major fracture of 22%, based on the WHO FRAX algorithm. The patient has risk factors, including: history of glucocorticoid therapy. Discussion: BONE DENSITY IS LOW AT ONE OR MORE SKELETAL SITES. THE PATIENT'S BMD AND CLINICAL RISK FACTORS CONTRIBUTE TO THIS PATIENT'S HIGH RISK OF FRACTURE. This patient's lowest T-score is low at one or more skeletal sites. It meets the World Health Organization's (WHO) criteria for ?low bone mass? (T-score between -1.0 and -2.5). The patient's 10-year risk of hip fracture and 10 year risk of a major osteoporotic fracture as calculated by FRAX exceeds the threshold where pharmacological therapy is recommended by the National Osteoporosis Foundation (NOF). However, all treatment decisions require clinical judgment and consideration of individual patient factors, including patient preferences, comorbidities, previous drug use, risk factors not captured in the FRAX model (e.g., frailty, falls, vitamin D deficiency, increased bone turnover, interval significant decline in bone
== END 2021-02-18 11:54 | disposition home or self-care (01) ==
LOC: ANHIMG 11:56
PROVIDERS: PCP Family Medicine; Visit Provider Family Medicine
DX: Z78.0 Asymptomatic menopausal state (principal); M85.89 Other specified disorders of bone density and structure, multiple sites
CPT/HCPCS: 77080

== ENCOUNTER 2021-02-25 13:56 | Outpatient (CLI) | payer MEDICARE, OTHER, SELFPAY ==
--- NOTE | ~2021-02-25 | XR_ITS ---
EXAMINATION: XR hip RT min 3V w AP pelvis DATE: 02/25/2021 14:21 INDICATION: Right hip pain. TECHNIQUE: An anteroposterior view of the pelvis and 3 views of right hip were obtained. COMPARISON: Pelvis and right hip radiographs 12/23/2019 FINDINGS: There is lumbar dextrocurvature and severe spondylosis. No fracture. There is a benign bone island in left ilium. Osteitis pubis is noted. The hip joint spaces are normal. IMPRESSION: 1. Normal hips. 2. Severe lumbar spondylosis. Reviewed, dictated and finalized at location B.
== END 2021-02-25 13:57 | disposition home or self-care (01) ==
PROVIDERS: PCP Family Medicine; Visit Provider Family Medicine
DX: M25.551 Pain in right hip (principal); M47.816 Spondylosis without myelopathy or radiculopathy, lumbar region
CPT/HCPCS: 73502

== ENCOUNTER 2021-03-26 11:59 | Inpatient (IN) | payer MEDICARE, OTHER, SELFPAY ==
[2021-03-26] VITALS (38 sets, daily range): BP systolic 111–139; BP diastolic 52–95; PULSE 71–88; RESP 11–23; TEMP 36.2–36.7; O2SAT 94–100; BMI 25.9; BMI 23.4
--- NOTE | ~2021-03-26 | MR_ITS ---
EXAMINATION: MR brain IAC wo con EXAM DATE: 03/28/2021 10:17 INDICATION: Persistent dizziness. TECHNIQUE: Multi-sequential, multiplanar MR images of the brain, brainstem, internal auditory canals were obtained without contrast. Whole brain sagittal T1, axial diffusion, gradient echo (T2*), T1, T 2, FLAIR sequences obtained. High resolution coronal 3-D FIESTA, coronal T1 FSE, axial T1 FSPGR of t he internal auditory canals. Correlation is made to head CT from 03/26/2021. FINDINGS: No evidence of mastoid or middle ear opacification. The 7th/8th cranial nerve complexes a re symmetric, normal in course and caliber. No cerebellopontine angle masses. Posterior fossa unrem arkable. There are no areas of restricted diffusion to suggest acute infarction. There is no acute hemorrhage seen on the T2*, a hemosiderin sensitive sequence. No intraparenchymal brain mass lesion. There is minimal periventricular and subcortical T2/FLAIR signal hyperintensity, nonspecific but probably rela morgan to small vessel ischemic disease (microangiopathy). There is mild prominence of the sulci and v entricles related to cerebral atrophy. There are no extra-axial collections. Flow voids are seen i n the cerebral arteries on the T2-weighted sequences consistent with their expected patency. Patient has had bilateral ocular lens surgery. Soft tissue is unremarkable. IMPRESSION: 1. No acute intracranial findings. 2. Chronic age related findings. Reviewed, dictated and finalized at location A.
--- NOTE | ~2021-03-26 | CT_ITS ---
EXAMINATION: CT brain wo con DATE: 03/26/2021 13:52 INDICATION: Vertigo. TECHNIQUE: Computed tomography (CT) of the head was performed without intravenous contrast. The dose- length product was 529.67 mGy-cm. The mA was adjusted according to patient size. Iterative reconstruc tion technique was employed. COMPARISON: 03/02/2020 FINDINGS: Mild atrophy. There are scattered mild periventricular and subcortical white matter changes , most likely related to small vessel ischemic disease (microangiopathy). There is intracranial ather osclerosis. No acute intracranial hemorrhage, infarction, mass or mass effect. No ventriculomegaly or midline shift. Basilar cisterns are patent. Paranasal sinuses and mastoids are pneumatized. No depre ssed skull fractures. IMPRESSION: 1. No acute intracranial abnormality. Reviewed, dictated and finalized at location B.
--- NOTE | ~2021-03-26 | MR_ITS ---
EXAMINATION: MRA brain wo con EXAM DATE: 03/27/2021 13:38 INDICATION: Vertigo. TECHNIQUE: 3-D [id number] MRA of the intracranial arteries was performed without contrast. Correl ation is made to head CT from yesterday. FINDINGS: There is normal flow related signal seen within the vertebral, basilar and internal carotid arteries. There is no proximal stenosis. There are no aneurysms identified. Both A1 and P1 segments are pat ent. Flow in the cerebral arteries is symmetric. IMPRESSION: Normal MRA brain exam. Reviewed, dictated and finalized at location A. IMPRESSION: Normal MRA brain exam.
--- NOTE | 2021-03-26 12:06 | ECG_ITS ---
Measurements Intervals [place] Rate: 86 P: 58 TX: 121 QRS: 38 QRSD: 82 T: 63 QT: 374 QTc: 449 Interpretive Statements SINUS RHYTHM BASELINE ARTIFACT- I, II, AVR NORMAL ECG Electronically Signed On 03-26-2021 12:32:36 CDT by Jovany Bray D.O.
[2021-03-26 12:37] LABS: Basophils Absolute Auto 0.1 K/mm3 (0.0-0.1); Basophils Percent Auto 0.8 % (0.2-1.2); Eosinophils Absolute Auto 0.2 K/mm3 (0-0.3); Eosinophils Percent Auto 2.2 % (0-4.4); Hematocrit 41.2 % (37.0-47.0); Hemoglobin 13.4 g/dL (12.0-15.0); Immature Granulocyte Absolute 0.02 K/mm3 (0.00-0.031); Immature Granulocyte Percent A 0.2 % (0-0.5); Lymphocytes Absolute Auto 2.73 K/mm3 (0.9-3.2); Lymphocytes Percent Auto 30.1 % (18.3-44.2); Mean Corpuscular HGB Conc 32.5 g/dl (32-36); Mean Corpuscular Volume 95.4 fl (80-100); Mean Platelet Volume 8.6 fl (7.4-10.4); Monocytes Absolute Auto 0.7 K/mm3 (0.1-0.6); Monocytes Percent Auto 7.7 % (2.6-8.5); Neutrophils Absolute Auto 5.4 K/mm3 (1.3-6.7); Platelet Count Result 373 k/mm3 (150-375); Red Blood Count 4.32 M/mm3 (4.2-5.4); Red Cell Distribution Width 13.3 % (11.5-14.5); White Blood Count 9.1 K/mm3 (4.5-10.0)
[2021-03-26 12:42] LABS: Anion Gap 5 mmol/L (8-16); Blood Urea Nitrogen 15 mg/dL (7-17); Calcium 9.2 mg/dL (8.4-10.2); Carbon Dioxide 32 mmol/L (22-30); Chloride 104 mmol/L (98-107); Estimated CRCL calculation 59 ml/min; Estimated Glomerular Filt Rate > 60; Glucose 104 mg/dL (65-105); Potassium 3.8 mmol/L (3.4-5.0); Sodium 141 mmol/L (137-145)
--- NOTE | 2021-03-26 12:48 | ED.DIZZY ---
HPI - Dizziness General Chief Complaint: Dizziness Stated Complaint: dizziness Time Seen by Provider: 03/26/21 12:47 History of Present Illness HPI Narrative: Dizziness since this morning. Feels like room spinning. Associated with difficulty ambulating. Tried meclizine without any change. She has had sinus congestion for the past few days. No weakness, numbness, incoordination, falls. Related Data Home Medications Medication Instructions Recorded Confirmed albuterol sulfate 90 mcg/actuation 1 puff INHALATION Q4H PRN 12/17/19 03/26/21 aerosol inhaler bacillus coagulans-inulin 1 1 cap PO DAILY 12/17/19 03/26/21 billion cell-250 mg capsule multivitamin,tx-minerals 1 tablet PO DAILY 12/17/19 03/26/21 vitamin B complex 1 cap PO DAILY 12/17/19 03/26/21 celecoxib 200 mg capsule 200 mg PO Q12H cap 07/29/20 03/26/21 coenzyme Q10 100 mg capsule 100 mg PO DAILY 08/19/20 03/26/21 cetirizine 10 mg tablet 10 mg PO DAILY PRN 01/27/21 03/26/21 cyclobenzaprine 5 mg tablet 5 mg PO DAILY PRN tablet 01/27/21 03/26/21 polyethylene glycol 3350 17 17 g PO BID PRN 01/27/21 03/26/21 gram/dose oral powder terbinafine HCl 250 mg tablet 250 mg PO DAILY 01/27/21 03/26/21 calcium 600 mg capsule 600 mg PO DAILY 02/25/21 03/26/21 duloxetine 60 mg capsule,delayed 60 mg PO DAILY cap 02/25/21 03/26/21 release fluticasone propionate 50 1 spray NASAL DAILY PRN ml 02/25/21 03/26/21 mcg/actuation nasal spray,suspension levothyroxine 100 mcg tablet 100 mcg PO DAILY tablet 02/25/21 03/26/21 Allergies Allergy/AdvReac Type Severity Reaction Status Date / Time tramadol [From Ultram] Allergy Severe SEVERE Verified 03/26/21 17:56 RESP DEPRESSION codeine AdvReac Severe hallucinati Verified 03/26/21 17:56 ons propoxyphene [From Darvon] AdvReac Severe vomiting Verified 03/26/21 20:21 Review of Systems Review of Systems: All systems reviewed & are unremarkable except as noted in HPI and below Constitutional: Constitutional: Denies chills, Denies fever(s) and Denies weakness Eyes: Eyes: Reports no additional eye complaints ENT: Reports system reviewed and no additional complaints, except as documented Cardiovascular: Cardiovascular: Denies chest pain Respiratory: Respiratory: Denies dyspnea Gastrointestinal: Gastrointestinal: Denies abdominal pain, Reports bloating, Reports constipation, Denies diarrhea, Denies nausea and Denies vomiting Genitourinary: Genitourinary: Denies hematuria and Denies dysuria Neurologic: Reports system reviewed and no additional complaints, except as documented, Denies confusion, Reports dizziness, Denies syncope, Denies headache(s), Denies numbness and Denies weakness PMFSH Past Medical History Medical History Anxiety disorder, unspecified Arthritis of carpometacarpal (CMC) joint of right thumb Arthritis of left acromioclavicular joint Asthma Chronic neck and back pain Depression Environmental allergies Essential (primary) hypertension Frequent headaches GERD (gastroesophageal reflux disease) History of adverse reaction to anesthesia Hypokalemia Hypothyroidism (acquired) Irritable bowel syndrome with predominant constipation Osteoarthritis Osteopenia Osteoporosis Seasonal allergies Surgical History Surgical History History of appendectomy 1972 History of arthroplasty of finger 11/2020 - Right thumb Carpometacarpal joint History of back surgery (~10/16/92) History of bunionectomy of both great toes 2010 History of cervical spinal surgery History of foot surgery 11/2020 - left foot hardware removal and correction of bunion History of hand surgery left hand - 2015 Carpectomy History of laparoscopic cholecystectomy 1993 History of left knee replacement 2018 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
[2021-03-26] MEDS: diazePAM INJ (*CRX) 10 MG/2 ML SYRINGE 2.5 MG IV PUSH ×2 (13:58→15:44)
[2021-03-26] MEDS: SODIUM CHLORIDE 0.9% IV 500 ML 999 ML IV CONT (13:59)
[2021-03-26 15:13] LABS: Add Urine Microscopic? YES; Amorphous Sediment Urine Few; Appearance Urine Cloudy (Clear); Bacteria Urine Trace /hpf; Bilirubin Urine Negative (Negative); Blood Urine Negative (Negative); Color Urine Amber (Yellow); Glucose Urine UA Negative (Negative); Ketones Urine Negative (Negative); Leukocyte Esterase Ur Negative LEU/UL (Negative); Mucus Urine Rare /lpf; Nitrate Urine Negative (Negative); Protein Urine Negative (Negative); RBC Urine 0-2 /hpf (0-2); Specific Grav Ur 1.013 (1.001-1.035); Squamous Epithelial Cell Urine Rare /hpf (Few); Urobilinogen Urine Negative mg/dL (<2.0); WBC Urine 0-3 /hpf
[2021-03-26 15:41] LABS: Prothrombin Time 13.5 Seconds (11.1-14.7)
[2021-03-26 15:42] LABS: Partial Thromboplastin Time 23.2 SECONDS (22.3-36.8)
[2021-03-26] MEDS: MECLIZINE HCL 25 MG TABLET PO (15:44)
--- NOTE | 2021-03-26 17:39 | ADMGEN ---
This patient, Florecita Lane, was admitted to 3 [facility] Surg Room 324-01 @ 1735. Patient/family oriented to hospital policies and general routines including ID bracelet, bed and alarms, visiting hours, pain management, procedures, bathroom and other care routines, personal items, smoking policy, room service/diet, and visiting hours. Information on how to activate the Rapid Response Team has been discussed. Patient/Family are encouraged to report perceived risks to care and to ask questions if they do not understand what they are told or what they should do.
[2021-03-26] MEDS: LACTATED RINGERS 1,000 ML 75 ML IV CONT (18:15)
--- NOTE | 2021-03-26 19:57 | PM.IMHP ---
H&P: HPI History of Present Illness Date/Time: 03/26/21 19:57 Chief Complaint: Vertigo Narrative: This 75-year-old female with past medical history significant hypertension, GERD, depression, hypertension, seasonal allergies. Patient presented to the emergency room after she has been having vertigo since Monday that has progressively gotten worse over the course of the last 2 days or so she has a sensation of room spinning mainly with changes of head position and upon standing. She has has on a fullness of the ear no nausea no vomiting no diarrhea no fevers no rigors no chills no abdominal pain no hearing changes no changes in vision no sensorimotor deficit no palpitations no chest pain no PND no orthopnea no leg swelling no nasal discharge no sore throat no headache. Preliminary workup was essentially nonrevealing a CT of the head was significant for no acute abnormality. Review of Systems Review of Systems: Narrative: Vertigo Constitutional: Constitutional: Denies chills, Denies fatigue, Denies fever(s), Denies headache(s), Denies lethargy and Denies weakness Eyes: Eyes: Denies change in vision ENT: Denies dysphagia, Reports vertigo, Denies ear discharge, Denies otalgia, Denies nasal congestion, Denies nasal discharge, Denies nasal obstruction, Denies post nasal drip, Denies tinnitus, Denies sinus pain and Denies sore throat Cardiovascular: Cardiovascular: Denies chest pain, Denies irregular heart rhythm, Denies leg edema, Denies lightheadedness, Denies radiating jaw, neck or arm pain, Denies palpitations and Denies dyspnea Respiratory: Respiratory: Denies cough, Denies dyspnea and Denies wheezing Gastrointestinal: Gastrointestinal: Reports constipation, Denies heartburn, Denies diarrhea, Denies nausea and Denies vomiting Genitourinary: Genitourinary: Reports no additional female genitourinary complaints Musculoskeletal: Musculoskeletal: Reports no additional musculoskeletal complaints Integumentary/Breasts: Skin/Breast: Denies rash Neurologic: Reports vertigo, Reports dizziness, Denies headache(s), Denies focal weakness, Denies loss of vision, Denies Other visual disturbances and Denies Sensory deficit (Neuro) Psychiatric: Psychiatric: Reports no additional psychiatric complaints Endocrine: Endocrine: Reports no additional endocrine complaints Hematologic/Lymphatic: Hematologic/Lymphatic: Reports no additional hematologic/lymphatic complaints Allergic/Immunologic: Allergic/Immunologic: Reports no additional allergic/immunologic complaints [facility] Past Medical History Medical History Anxiety disorder, unspecified Arthritis of carpometacarpal (CMC) joint of right thumb Arthritis of left acromioclavicular joint Asthma Chronic neck and back pain Depression Environmental allergies Essential (primary) hypertension Frequent headaches GERD (gastroesophageal reflux disease) History of adverse reaction to anesthesia Hypokalemia Hypothyroidism (acquired) Irritable bowel syndrome with predominant constipation Osteoarthritis Osteopenia Osteoporosis Seasonal allergies Surgical History Surgical History History of appendectomy 1972 History of arthroplasty of finger 11/2020 - Right thumb Carpometacarpal joint History of back surgery (~10/16/92) History of bunionectomy of both great toes 2010 History of cervical spinal surgery History of foot surgery 11/2020 - left foot hardware removal and correction of bunion History of hand surgery left hand - 2014 Carpectomy History of laparoscopic cholecystectomy 1992 History of left knee replacement 2018 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
[2021-03-26] MEDS: CELECOXIB 200 MG CAPSULE PO (21:22)
[2021-03-26] MEDS: LUBIPROSTONE 24 MCG CAPSULE PO (21:22)
[2021-03-27] VITALS (10 sets, daily range): BP systolic 106–123; BP diastolic 51–84; PULSE 73–85; RESP 14–18; TEMP 36.2–37.1; O2SAT 95–97
[2021-03-27] MEDS: LACTATED RINGERS 1,000 ML 75 ML IV CONT (06:10)
[2021-03-27] MEDS: LEVOTHYROXINE SODIUM 100 MCG TABLET PO (06:10)
[2021-03-27] MEDS: SERTRALINE HCL 25 MG TABLET PO (08:47)
[2021-03-27] MEDS: LUBIPROSTONE 24 MCG CAPSULE PO ×2 (08:47→17:15)
[2021-03-27] MEDS: terbinafine HCL 250 MG TABLET PO (08:47)
[2021-03-27] MEDS: VITAMIN B COMPLEX CAPSULE 1 CAP PO (08:47)
[2021-03-27] MEDS: DULoxetine HCL 60 MG CAPSULE.DR PO (08:47)
[2021-03-27] MEDS: LORATADINE 10 MG TABLET PO (08:47)
[2021-03-27] MEDS: CALCIUM CARBONATE (OSCAL) 500 MG TABLET PO (08:47)
[2021-03-27] MEDS: hydroCHLOROthiazide 25 MG TABLET PO (08:47)
[2021-03-27] MEDS: POTASSIUM CHLORIDE 10 MEQ TABLET.ER PO (08:48)
[2021-03-27] MEDS: THERAPEUTIC MULTIVITAMINS/MINERALS TAB (*BKC) 1 TABLET PO (08:48)
[2021-03-27] MEDS: PANTOPRAZOLE 40 MG TABLET PO ×2 (08:48→20:07)
[2021-03-27] MEDS: CELECOXIB 200 MG CAPSULE PO ×2 (08:48→20:07)
--- NOTE | 2021-03-27 15:36 | PM.IMPN ---
Progress Note: A&P Assessment and Plan (1) Vertigo: Code(s): R42 - Dizziness and giddiness Status: Acute Assessment and Plan: The patient is exiting signs of vertigo that has been going on for a few days and gradually improving -CT of the brain was negative and she underwent an MRA which did not adequately show the brain parenchyma to assess for acute stroke. However, the patient's symptoms are improving and she has no neurological deficits on exam. I spoke with her extensively about the findings and the possible differentials and we have decided to go forward with an MRI brain with IAC -meclizine will be given b.i.d. for a day or 2 and will see how she improves with that -continue telemetry -No arterial stenosis or abnormal findings on brain MRI -Will stop HCTZ (2) Osteoarthritis: Qualifiers: Osteoarthritis location: unspecified site Osteoarthritis type: unspecified Qualified Code(s): M19.90 - Unspecified osteoarthritis, unspecified site Code(s): M19.90 - Unspecified osteoarthritis, unspecified site Status: Acute Assessment and Plan: Stable Continue home meds -Pt is in PT right now to help with this (3) Chronic neck and back pain: Code(s): M54.2 - Cervicalgia; M54.9 - Dorsalgia, unspecified; G89.29 - Other chronic pain Status: Acute Assessment and Plan: Stable Continue home medications (4) Essential (primary) hypertension: Code(s): I10 - Essential (primary) hypertension Status: Acute Assessment and Plan: Last bp 123/60 -stop HCTZ due to dizziness and monitor blood pressures (5) GERD (gastroesophageal reflux disease): Qualifiers: Esophagitis presence: without esophagitis Qualified Code(s): K21.9 - Gastro-esophageal reflux disease without esophagitis Code(s): K21.9 - Gastro-esophageal reflux disease without esophagitis Status: Acute Assessment and Plan: Stable with no symptoms (6) Irritable bowel syndrome with predominant constipation: Code(s): K58.1 - Irritable bowel syndrome with constipation Status: Acute Assessment and Plan: Patient has been constipated Continue MiraLax Time Spent With Patient Time with patient: 25 - 35 minutes Subjective Date/time seen: 03/27/21 15:36 Interval history: Pt is a 75-year-old female here for dizziness. Patient states she continues to be dizzy and disoriented but it is much better than yesterday. Yesterday she was unable to walk straight and today she feels a little uneasy on her feet but can walk. She does not feel weak, lightheaded, had chest pain or have any shortness of breath. She says the dizziness is worse with movement. She has not really tried the meclizine and is unsure if it works but will try it today. Review of Systems Review of Systems: All systems reviewed & are unremarkable except as noted in HPI and below Exam Narrative: Exam Narrative: General: Well developed well nourished patient in NAD HEENT: normocephalic Neck: supple Neuro: Alert and oriented x4. Cranial nerves 2-12 intact. Equal strength the upper lower extremities 5/5. Able to do [id number] and rapid alternating movements CV:RRR. Telemetry shows normal sinus rhythm a rate of 84. No worrisome abnormal reviews. Resp:CTA Abd: Soft, non distended. No pain to palpation. Positive bowel sounds Extremities: No swelling, erythema, or pain to palpation. Objective Data Vital Signs Vital Signs: Vital Signs - 24 hr 03/26/21 15:45 03/26/21 16:00 03/26/21 16:15 Temperature Pulse Rate 81 86 71 Respiratory Rate 16 17 19 Blood Pressure Pulse Oximetry 98 98 97 03/26/21 16:30 03/26/21 16:45 03/26/21 16:51 Temperature Pulse Rate 78 82 84 Respiratory Rate 17 22 H 23 H Blood Pressure 138/71 Pulse Oximetry 96 97 98 03/26/21 17:00 03/26/21 17:01 03/26/21 17:15 Temperature Pulse Rate 83 82 77 Respirato
[2021-03-27] MEDS: MECLIZINE HCL 25 MG TABLET PO (17:15)
[2021-03-28] VITALS: PULSE 86
[2021-03-28] MEDS: LACTATED RINGERS 1,000 ML 75 ML IV CONT (01:50)
[2021-03-28 04:00] VITALS: PULSE 74
[2021-03-28 06:00] VITALS: BP 111/64; PULSE 70; RESP 16; TEMP 36.6; O2SAT 97
[2021-03-28] MEDS: LEVOTHYROXINE SODIUM 100 MCG TABLET PO (06:03)
[2021-03-28 08:00] VITALS: PULSE 80
[2021-03-28] MEDS: THERAPEUTIC MULTIVITAMINS/MINERALS TAB (*BKC) 1 TABLET PO (09:05)
[2021-03-28] MEDS: MECLIZINE HCL 25 MG TABLET PO (09:05)
[2021-03-28] MEDS: VITAMIN B COMPLEX CAPSULE 1 CAP PO (09:05)
[2021-03-28] MEDS: LUBIPROSTONE 24 MCG CAPSULE PO (09:05)
[2021-03-28] MEDS: POTASSIUM CHLORIDE 10 MEQ TABLET.ER PO (09:05)
[2021-03-28] MEDS: PANTOPRAZOLE 40 MG TABLET PO (09:05)
[2021-03-28] MEDS: CELECOXIB 200 MG CAPSULE PO (09:05)
[2021-03-28] MEDS: DULoxetine HCL 60 MG CAPSULE.DR PO (09:06)
[2021-03-28] MEDS: terbinafine HCL 250 MG TABLET PO (09:06)
[2021-03-28] MEDS: SERTRALINE HCL 25 MG TABLET PO (09:06)
[2021-03-28] MEDS: CALCIUM CARBONATE (OSCAL) 500 MG TABLET PO (09:06)
[2021-03-28 12:00] VITALS: PULSE 90
--- NOTE | 2021-03-28 12:40 | PM.DS ---
DS: Admitting Diagnosis Admitting Diagnosis Admitting Diagnosis: vertigo DS: Discharge Diagnosis Discharge Diagnosis (1) Vertigo: Code(s): R42 - Dizziness and giddiness Status: Acute Assessment and Plan: The patient is exiting signs of vertigo that has been going on for a few days and gradually improving and is feeling much better day of discharge -MRI of the brain with IAC was negative for stoke -CT and MRI of the brain was negative -meclizine PRN -No signs of arrhythmias on tele and I do not suspect arrythmia to be the etiology -No arterial stenosis or abnormal findings on brain MRI -HCTZ stopped -Pt given PT orders for vertigo PT and an ENT referral if this persists. (2) Osteoarthritis: Qualifiers: Osteoarthritis location: unspecified site Osteoarthritis type: unspecified Qualified Code(s): M19.90 - Unspecified osteoarthritis, unspecified site Code(s): M19.90 - Unspecified osteoarthritis, unspecified site Status: Acute Assessment and Plan: Stable Continue home meds and PT (3) Chronic neck and back pain: Code(s): M54.2 - Cervicalgia; M54.9 - Dorsalgia, unspecified; G89.29 - Other chronic pain Status: Acute Assessment and Plan: Stable Continue home medications (4) Essential (primary) hypertension: Code(s): I10 - Essential (primary) hypertension Status: Acute Assessment and Plan: Last bp 111/64 -stop HCTZ due to dizziness (5) GERD (gastroesophageal reflux disease): Qualifiers: Esophagitis presence: without esophagitis Qualified Code(s): K21.9 - Gastro-esophageal reflux disease without esophagitis Code(s): K21.9 - Gastro-esophageal reflux disease without esophagitis Status: Acute Assessment and Plan: Stable with no symptoms (6) Irritable bowel syndrome with predominant constipation: Code(s): K58.1 - Irritable bowel syndrome with constipation Status: Acute Assessment and Plan: Patient has been constipated Continue MiraLax DS: Summary Hospital Course Hospital Course: Patient is a 75 y/o female who presented to the ED 03/26/21 for dizziness with movement and problems ambulating. She reports a sinus congestion to the ED but had no complaints of this while hospitalized. Vitals in the ER temp 36.2, pulse 84, RR 18, bp 113/57, pulse ox 98. CBC and BMP WNL. UA neg for UTI. CT of the brain was negative. MRA showed a normal brain. Patient was admitted to the hospitalist service and observed on telemetry. Her dizziness improved by the day and the day of discharge she was up walking with physical therapy. It was not 100% resolved but she stated it was much much better and she was able to walk without assistance. She is still not going to drive until she feels normal. She underwent a brain MRI which showed no signs of stroke. Telemetry showed absolutely no signs of arrhythmia. Symptoms not consistent with cardiac pathology as it is positional. She had increased dizziness when turning her head quickly. I spoke with her about specialize physical therapy that can help with vertigo type symptoms and I also gave her an ENT referral if this persists. I stopped the hydrochlorothiazide added this can cause dizziness sick specially in the elderly. The day of discharge the patient was feeling much better and ready to go. Her daughter was going to pick her up and she had resources if she needed them. She is going to follow-up with her primary care physician. She was educated about the worrisome signs and symptoms to come back to emergency room for and was discharged stable condition. Status at Discharge Functional status at discharge: independent ambulation Time Spent with Patient Time attestation: Total time spent providing and/or coordinating discharge services:36 min Exam Narrative: Exam Narrative: General: Well developed well nourished patient in NAD HEENT:
== END 2021-03-28 14:15 | disposition home or self-care (01) | DRG 149 ==
LOC: ANHED 12:47 → ANH3MEDSUR 16:39
PROVIDERS: Emergency Medicine; Admitting Provider Family Medicine; Emergency Provider Emergency Medicine; PCP Family Medicine; Visit Provider Family Medicine
DX: R42 Dizziness and giddiness (principal); M54.2 Cervicalgia; M54.9 Dorsalgia, unspecified; G89.29 Other chronic pain; K21.9 Gastro-esophageal reflux disease without esophagitis; I10 Essential (primary) hypertension; K58.1 Irritable bowel syndrome with constipation; F41.9 Anxiety disorder, unspecified; M18.11 Unilateral primary osteoarthritis of first carpometacarpal joint, right hand; M19.09 Primary osteoarthritis, other specified site; E03.9 Hypothyroidism, unspecified; M81.0 Age-related osteoporosis without current pathological fracture; M85.80 Other specified disorders of bone density and structure, unspecified site; F32.9 Major depressive disorder, single episode, unspecified; J45.909 Unspecified asthma, uncomplicated; Z96.652 Presence of left artificial knee joint; Z90.49 Acquired absence of other specified parts of digestive tract
CPT/HCPCS: 36415; 70450; 70544; 70551; 80048; 81001; 85025; 85610; 85730; 93005; 96361; 96374; 96376; 97161; 97165; 99285; A9270; G0378; J3360; J7040; J7120

== ENCOUNTER 2021-05-07 10:24 | Outpatient (CLI) | payer MEDICARE, OTHER, SELFPAY ==
[2021-05-07 11:25] LABS: Alanine Aminotransferase 20 U/L (4-35); Aspartate Amino Transferase 29 U/L (14-36)
== END 2021-05-07 10:25 | disposition home or self-care (01) ==
PROVIDERS: PCP Family Medicine; Visit Provider Podiatrist Foot & Ankle Surgery
DX: B35.1 Tinea unguium (principal)
CPT/HCPCS: 36415; 84450; 84460

== ENCOUNTER 2021-05-26 07:01 | Day surgery (SDC) | payer MEDICARE, OTHER, SELFPAY ==
[2021-05-17 11:14] VITALS: BMI 25.4
[2021-05-26 09:04] VITALS: BP 137/70; PULSE 95; RESP 20; TEMP 36.8; O2SAT 97; BMI 26.8
--- NOTE | 2021-05-26 09:06 | WPDANESEPPF ---
Anes - Initial Pre Proc Eval Procedure: Operation Date: 05/26/21 10:15 Proposed Procedures p Esophagogastroduodenoscopy & Colonoscopy - Jorge L Dalton MD Date/Time: 05/26/21 09:06 Surgeon: Jorge L Dalton MD Pre Op Diagnosis: barretts esophagus, change in bowel habits Patient Data Age: 75 Gender: F Height: 1.52 m Weight: 59 kg Allergies Allergy/AdvReac Type Severity Reaction Status Date / Time tramadol [From Ultram] Allergy Severe SEVERE Verified 05/26/21 09:01 RESP DEPRESSION codeine AdvReac Severe hallucinati Verified 05/26/21 09:01 ons propoxyphene [From Darvon] AdvReac Severe vomiting Verified 05/26/21 09:01 Home Medications Medication Instructions Recorded Confirmed Type albuterol sulfate 90 mcg/actuation 1 puff INHALATION Q4H PRN 12/17/19 05/17/21 History aerosol inhaler bacillus coagulans-inulin 1 1 cap PO DAILY 12/17/19 05/17/21 History billion cell-250 mg capsule multivitamin,tx-minerals 1 tablet PO DAILY 12/17/19 05/17/21 History vitamin B complex 1 cap PO DAILY 12/17/19 05/17/21 History celecoxib 200 mg capsule 200 mg PO Q12H cap 07/29/20 05/17/21 History coenzyme Q10 100 mg capsule 100 mg PO DAILY 08/19/20 05/17/21 History cetirizine 10 mg tablet 10 mg PO DAILY PRN 01/27/21 05/17/21 History cyclobenzaprine 5 mg tablet 5 mg PO DAILY PRN tablet 01/27/21 05/17/21 History omeprazole 40 mg capsule,delayed 40 mg PO DAILY #90 cap 01/27/21 05/17/21 Rx release polyethylene glycol 3350 17 17 g PO BID PRN 01/27/21 05/17/21 History gram/dose oral powder terbinafine HCl 250 mg tablet 250 mg PO DAILY 01/27/21 05/17/21 History calcium 600 mg capsule 600 mg PO DAILY 02/25/21 05/17/21 History duloxetine 60 mg capsule,delayed 60 mg PO DAILY cap 02/25/21 05/17/21 History release fluticasone propionate 50 1 spray NASAL DAILY PRN ml 02/25/21 05/17/21 History mcg/actuation nasal spray,suspension levothyroxine 100 mcg tablet 100 mcg PO DAILY tablet 02/25/21 05/17/21 History linaclotide 145 mcg capsule 145 mcg PO DAILY #30 cap 04/15/21 05/17/21 Rx hydrochlorothiazide 25 mg tablet 25 mg PO DAILY #90 tablet 04/22/21 05/17/21 Rx lactulose 10 gram oral packet 10 g PO DAILY PRN #30 ea 04/30/21 05/17/21 Rx sertraline 25 mg tablet 25 mg PO DAILY #90 tablet 05/10/21 05/17/21 Rx potassium chloride 10 mEq 10 meq PO DAILY #90 cap 05/25/21 Rx capsule,extended release Patient hx anesthesia problems: none Family hx anesthesia problems: none PMFSH Past Medical History Medical History Abdominal pain Anxiety disorder, unspecified Arthritis of left acromioclavicular joint Asthma Chronic neck and back pain Congestion of nasal sinus Constipation Depression Diarrhea Essential (primary) hypertension Frequent headaches GERD (gastroesophageal reflux disease) History of adverse reaction to anesthesia Hypokalemia Hypothyroidism Hypothyroidism (acquired) IBS (irritable bowel syndrome) Irritable bowel syndrome with predominant constipation Left knee pain Osteoarthritis Osteopenia Osteoporosis Seasonal allergies Wears glasses Weight gain Surgical History Surgical History History of appendectomy 1972 History of arthroplasty of finger 11/2020 - Right thumb Carpometacarpal joint History of back surgery (~10/16/92) History of bunionectomy of both great toes 2009 History of cervical spinal surgery History of foot surgery 11/2020 - left foot hardware removal and correction of bunion History of hand surgery left hand - 2015 Carpectomy History of laparoscopic cholecystectomy 1992 History of left knee replacement 2018 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
[2021-05-26] MEDS: LACTATED RINGERS 1,000 ML 150 ML IV CONT (09:20)
--- NOTE | 2021-05-26 09:48 | PM.HPGS ---
History of Present Illness History of Present Illness Consent: Risks, benefits, and alternatives have been discussed and questions answered. Patient agrees to proceed with procedure. Chief complaint: barretts esophagus, change in bowel habits Narrative: Florecita Lane is a 75 year old female with gerd and bloating on ppi, also lately more constipation (she has known ibs-c on amitiza) but not helping much. I prescribed linzess but high co-pay and would like to try something else. Last EGD and colonoscopy 2019 reviewed, had hiatal hernia, no major other findings. Review of Systems Constitutional: Constitutional: Denies headache(s) and Denies weakness Eyes: Eyes: Denies blurry vision ENT: Reports Normal hearing present, Denies headache(s) and Denies neck pain Cardiovascular: Cardiovascular: Denies chest pain and Denies dyspnea Respiratory: Respiratory: Denies dyspnea Gastrointestinal: Gastrointestinal: Reports no additional gastrointestinal complaints Genitourinary: Genitourinary: Denies dysuria Musculoskeletal: Musculoskeletal: Denies neck pain Integumentary/Breasts: Skin/Breast: Denies dry skin Neurologic: Reports Normal hearing present, Denies headache(s) and Denies weakness Psychiatric: Psychiatric: Denies anxiety Endocrine: Endocrine: Denies change in body appearance Hematologic/Lymphatic: Hematologic/Lymphatic: Denies easy bleeding Allergic/Immunologic: Allergic/Immunologic: Denies urticaria PMFSH Past Medical History Medical History Abdominal pain Anxiety disorder, unspecified Arthritis of left acromioclavicular joint Asthma Chronic neck and back pain Congestion of nasal sinus Constipation Depression Diarrhea Essential (primary) hypertension Frequent headaches GERD (gastroesophageal reflux disease) History of adverse reaction to anesthesia Hypokalemia Hypothyroidism Hypothyroidism (acquired) IBS (irritable bowel syndrome) Irritable bowel syndrome with predominant constipation Left knee pain Osteoarthritis Osteopenia Osteoporosis Seasonal allergies Wears glasses Weight gain Surgical History Surgical History History of appendectomy 1972 History of arthroplasty of finger 11/2020 - Right thumb Carpometacarpal joint History of back surgery (~10/16/92) History of bunionectomy of both great toes 2009 History of cervical spinal surgery History of foot surgery 11/2020 - left foot hardware removal and correction of bunion History of hand surgery left hand - 2015 Carpectomy History of laparoscopic cholecystectomy 1992 History of left knee replacement 2018 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 Smoking status: Never smoker Second hand tobacco smoke exposure: No Alcohol intake: never Substance use: never Substance use type: does not use and other Living arrangements: alone Gender identity (if verbalized by the patient): Female Spiritual care concerns: No Meds Home Medications and Allergies Home Medications Medication Instructions Recorded Confirmed Type albuterol sulfate 90 mcg/actuation 1 puff INHALATION Q4H PRN 12/17/19 05/17/21 History aerosol inhaler bacillus coagulans-inulin 1 1 cap PO DAILY 12/17/19 05/17/21 History billion cell-250 mg capsule multivitamin,tx-minerals 1 tablet PO DAILY 12/17/19 05/17/21 History vitamin B complex 1 cap PO DAILY 12/17/19 05/17/21 History celecoxib 200 mg capsule 200 mg PO Q12H cap 07/29/20
[2021-05-26 10:38] VITALS: BP 144/75; PULSE 86; RESP 24; O2SAT 98
[2021-05-26 10:48] VITALS: BP 141/92; PULSE 86; RESP 20; O2SAT 98
[2021-05-26 10:58] VITALS: BP 144/86; PULSE 80; RESP 20; O2SAT 98
== END 2021-05-26 11:22 | disposition home or self-care (01) ==
PROVIDERS: PCP Family Medicine; Visit Provider Internal Medicine Gastroenterology
PROC: 0DJ08ZZ Inspection of Upper Intestinal Tract, Via Natural or Artificial Opening Endoscopic (ICD-10-PCS; CPT 43235; principal; 2021-05-26 10:15)
DX: K58.1 Irritable bowel syndrome with constipation (principal); K56.699 Other intestinal obstruction unspecified as to partial versus complete obstruction; K64.8 Other hemorrhoids; K57.30 Diverticulosis of large intestine without perforation or abscess without bleeding; K21.9 Gastro-esophageal reflux disease without esophagitis; K29.50 Unspecified chronic gastritis without bleeding; K44.9 Diaphragmatic hernia without obstruction or gangrene; I10 Essential (primary) hypertension; E03.9 Hypothyroidism, unspecified; F41.8 Other specified anxiety disorders; M81.0 Age-related osteoporosis without current pathological fracture; Z79.51 Long term (current) use of inhaled steroids
CPT/HCPCS: 45378; 43239; 88305; J7120

== ENCOUNTER 2021-06-07 08:44 | Outpatient (CLI) | payer MEDICARE, OTHER, SELFPAY ==
--- NOTE | ~2021-06-07 | XR_ITS ---
EXAMINATION: XR_ENEMABAC_CR EXAM DATE: 06/07/2021 10:26 INDICATION: Incomplete colonoscopy, colonic stricture. History of colon surgery 50 years ago. TECHNIQUE: Fluoroscopy used during air contrast barium enema performed by Dr. Francisco Javier Jensen. Total fl uoroscopic time of 0.9 minutes. The DAP for this procedure was 50 mGym2. A total of 147 images sent to PACS from the exam. There is no prior study for comparison. FINDINGS: Contrast reached the cecum. There is approximately 8 cm of sigmoid colon which is tapers i n mid aspect to about 1 cm in diameter. No shouldering to suggest underlying colonic mass. No colonic polyps there are diverticula identified. IMPRESSION: Region of sigmoid colonic narrowing without suspicion of underlying mass. Otherwise unrem arkable exam. Reviewed, dictated and finalized at location A. IMPRESSION: Region of sigmoid colonic narrowing without suspicion of underlying mass. Otherwise unremarkable exam.
== END 2021-06-07 08:45 | disposition home or self-care (01) ==
PROVIDERS: PCP Family Medicine; Visit Provider Internal Medicine Gastroenterology
DX: K58.1 Irritable bowel syndrome with constipation (principal)
CPT/HCPCS: 74280

== ENCOUNTER 2021-06-14 07:55 | Outpatient (CLI) | payer MEDICARE, OTHER, SELFPAY ==
[2021-06-14 09:13] LABS: Hematocrit 44.4 % (37.0-47.0); Hemoglobin 14.7 g/dL (12.0-15.0)
[2021-06-14 09:28] LABS: Anion Gap 9 mmol/L (8-16); Blood Urea Nitrogen 15 mg/dL (7-17); Calcium 9.4 mg/dL (8.4-10.2); Carbon Dioxide 30 mmol/L (22-30); Chloride 94 mmol/L (98-107); Estimated Glomerular Filt Rate > 60; Glucose 104 mg/dL (65-110); Potassium 3.7 mmol/L (3.4-5.0); Sodium 133 mmol/L (137-145)
== END 2021-06-14 07:56 | disposition home or self-care (01) ==
LOC: ANHSURGERY 07:57
PROVIDERS: Anesthesiology; PCP Family Medicine; Visit Provider Surgery
DX: K56.699 Other intestinal obstruction unspecified as to partial versus complete obstruction (principal); Z79.899 Other long term (current) drug therapy; Z01.818 Encounter for other preprocedural examination
CPT/HCPCS: 36415; 80048; 85014; 85018; 86850; 86900; 86901

== ENCOUNTER 2021-06-15 06:33 | Outpatient (CLI) | payer MEDICARE, OTHER, SELFPAY ==
--- NOTE | ~2021-06-15 | CT_ITS ---
EXAMINATION: CT abdomen pelvis w con EXAM DATE: 06/15/2021 06:59 INDICATION: K56.699 - Other intestinal obstruction unspecified as to ... Abnormal barium examination demonstrating colonic stricture without shouldering. TECHNIQUE: Spiral CT of the abdomen and pelvis was performed following intravenous injection of 100 m L Omnipaque 350. Axial, coronal and sagittal images of the abdomen and pelvis were reviewed. The do se-length product (DLP) for this examination was 335.24 mGy-cm. The exposure was tailored according to patient size (auto mA exposure control), and iterative reconstruction (ASIR) was used as additiona l dose reduction technique. There is no prior study for comparison. FINDINGS: Small to moderate amount of ascites. Vague nodularity to the omentum in generalized mesente cheli fat stranding. Ill-defined masslike region in the pelvis, difficult to measure given its insinuat ing shape, but approximately 3.5 x 2.0 cm (see axial images 118-130). This is contiguous to loops of small bowel and segment of the sigmoid colon. It is likely causing the strictured appearance identifi ed on barium enema. In the left side of the pelvis there is also another region of soft tissue measur ing about 2 cm, could be pelvic lymph node or the left ovary. Differential diagnosis includes mesente cheli carcinoid with peritoneal carcinomatosis, endometriosis, ovarian cancer, sequela from inflammator y bowel disease. Sigmoid adenocarcinoma with metastatic disease less likely given barium examination and most of the soft tissue is adjacent to the colon. No colonic diverticula identified. No mesenteri c or retroperitoneal lymphadenopathy. The liver, spleen, adrenal glands and pancreas are unremarkable. There are cholecystectomy clips. P ortal and splenic veins are patent. Kidneys enhance symmetrically. There is no hydronephrosis. Ther e is a right renal cyst measuring 3 cm. The uterus is not identified and has likely been surgically resected. The bladder is unremarkable. The appendix is not positively visualized. There is no pericecal inflammatory change to suggest appe ndicitis. The stomach and small bowel are unremarkable. There is expected amount of colonic stool. No free intraperitoneal gas. The heart is normal in size. There are no pericardial or pleural e ffusions. The lung bases are unremarkable. There are no osteoblastic or osteolytic lesions identifi ed. IMPRESSION: Pelvic insinuating mass between sigmoid and small bowel, small to moderate ascites with o mental nodularity. Differential diagnosis includes mesenteric carcinoid, ovarian cancer or colon canc er with carcinomatosis. Endometriosis would be a benign consideration. Reviewed, dictated and finalized at location D. IMPRESSION: Pelvic insinuating mass between sigmoid and small bowel, small to m oderate ascites with omental nodularity. Differential diagnosis includes mesent aaron carcinoid, ovarian cancer or colon cancer with carcinomatosis. Endometrios is would be a benign consideration.
== END 2021-06-15 06:34 | disposition home or self-care (01) ==
LOC: ANHIMG 06:36
PROVIDERS: PCP Family Medicine; Visit Provider Surgery
DX: K56.699 Other intestinal obstruction unspecified as to partial versus complete obstruction (principal); R19.09 Other intra-abdominal and pelvic swelling, mass and lump
CPT/HCPCS: 74177; Q9967

== ENCOUNTER 2021-06-16 10:18 | Inpatient (IN) | payer MEDICARE, OTHER, SELFPAY ==
[2021-06-16] VITALS (8 sets, daily range): BP systolic 98–123; BP diastolic 41–75; PULSE 95–107; RESP 16–20; TEMP 36.8–37.3; O2SAT 97–98; BMI 25.8
--- NOTE | ~2021-06-16 | XR_ITS ---
EXAMINATION: XR abdomen obstructive series EXAM DATE: 06/17/2021 09:05 INDICATION: Sigmoid stricture, pelvic mass. Upper abdominal pain, diarrhea. TECHNIQUE: Frontal upright projection of the upper abdomen, frontal projection of the lower abdomen f or interpretation. Comparison is made to prior examination from 06/16/2021. FINDINGS: Moderate amount of colonic gas without solid stool identified. No free intraperitoneal gas . No small bowel obstruction. There are cholecystectomy clips. Mild lumbar scoliosis and up to modera te spondylosis. Lung bases are clear. Accounting for differences in technique, there is no significan t interval change. IMPRESSION: 1. Moderate colonic gas, nonobstructive bowel gas pattern. Reviewed, dictated and finalized at location B.
--- NOTE | ~2021-06-16 | US_ITS ---
EXAMINATION: US paracentesis abd w/image DATE: 06/16/2021 15:39 INDICATION: Ascites with possible carcinomatosis on CT. TECHNIQUE: The procedure and its risks and benefits were discussed with the patient. Potential risks discussed included bleeding and infection. The skin was prepped and draped in sterile fashion. 1% lid ocaine was used for local anesthesia. Under ultrasound guidance, a 5 Fr catheter with trochar was adv anced into the ascites in the left lower quadrant. Fluid was aspirated into vacuum bottles. The tino ter was removed, and a dressing was applied. There were no immediate complications. FINDINGS: Ultrasound images demonstrate ascites and the catheter within the fluid. IMPRESSION: 1. Successful ultrasound-guided paracentesis yielding 400 mL of clear jessee-colored fluid. Reviewed, dictated and finalized at location A. IMPRESSION: 1. Successful ultrasound-guided paracentesis yielding 400 mL of clear jessee-co lored fluid.
--- NOTE | ~2021-06-16 | US_ITS ---
EXAMINATION: US venous doppler [facility] EXAM DATE: 06/16/2021 12:16 INDICATION: Left calf pain, leg cramps. TECHNIQUE: Multiple grayscale, color flow and Doppler images of the left lower extremity deep venous system were obtained and reviewed. There is no prior study for comparison. FINDINGS: The left common femoral, femoral and profunda veins demonstrate normal color flow, respirat ory variation, augmentation and compressibility. Compressibility, color flow confirmed within the le ft popliteal, posterior tibial, peroneal, and greater saphenous veins. IMPRESSION: 1. No left lower extremity deep venous thrombosis. Reviewed, dictated and finalized at location B.
--- NOTE | ~2021-06-16 | XR_ITS ---
EXAMINATION: XR abdomen obstructive series EXAM DATE: 06/16/2021 12:00 INDICATION: abdominal pain, rule out obstruction. TECHNIQUE: Frontal upright projection of the upper abdomen, frontal projection of the lower abdomen f or interpretation. There is no prior study for comparison. FINDINGS: There is moderate amount of colonic gas. No evidence of free intraperitoneal gas. No small bowel dilation. Mild lumbar scoliosis. There are cholecystectomy clips. IMPRESSION: Moderate amount of colonic gas without high-grade obstruction. Correlate with recent enem a, CT reports. Reviewed, dictated and finalized at location B. IMPRESSION: Moderate amount of colonic gas without high-grade obstruction. Juanita elate with recent enema, CT reports.
[2021-06-16 10:56] LABS: Basophils Absolute Auto 0.1 K/mm3 (0.0-0.1); Basophils Percent Auto 0.7 % (0.2-1.2); Eosinophils Absolute Auto 0.2 K/mm3 (0-0.3); Eosinophils Percent Auto 1.3 % (0-4.4); Hematocrit 42.8 % (37.0-47.0); Hemoglobin 14.1 g/dL (12.0-15.0); Immature Granulocyte Absolute 0.03 K/mm3 (0.00-0.031); Immature Granulocyte Percent A 0.3 % (0-0.5); Lymphocytes Absolute Auto 2.01 K/mm3 (0.9-3.2); Lymphocytes Percent Auto 17.8 % (18.3-44.2); Mean Corpuscular HGB Conc 32.9 g/dl (32-36); Mean Corpuscular Hemoglobin 30.7 pg (26-34); Mean Corpuscular Volume 93.2 fl (80-100); Mean Platelet Volume 8.7 fl (7.4-10.4); Monocytes Absolute Auto 0.8 K/mm3 (0.1-0.6); Neutrophils Absolute Auto 8.3 K/mm3 (1.3-6.7); Neutrophils Percent Auto 72.9 % (45.5-73.1); Platelet Count Result 629 k/mm3 (150-375); Red Blood Count 4.59 M/mm3 (4.2-5.4); Red Cell Distribution Width 12.6 % (11.5-14.5); White Blood Count 11.3 K/mm3 (4.5-10.0)
[2021-06-16 11:09] LABS: Add Urine Microscopic? YES; Appearance Urine Cloudy (Clear); Bacteria Urine Trace /hpf; Bilirubin Urine Negative (Negative); Blood Urine Negative (Negative); Color Urine Amber (Yellow); Glucose Urine UA Negative (Negative); Hyaline Casts Urine 15-19 /lpf; Ketones Urine Trace mg/dL (Negative); Leukocyte Esterase Ur Negative LEU/UL (Negative); Mucus Urine Rare /lpf; Nitrate Urine Negative (Negative); Protein Urine 2+ mg/dL (Negative); Specific Grav Ur 1.018 (1.001-1.035); Squamous Epithelial Cell Urine Few /hpf (Few); Urobilinogen Urine Negative mg/dL (<2.0)
[2021-06-16 11:09] LABS: Alanine Aminotransferase 17 U/L (4-35); Albumin Level 4.1 g/dL (3.5-5.1); Alkaline Phosphatase 117 U/L (38-126); Anion Gap 16 mmol/L (8-16); Aspartate Amino Transferase 27 U/L (14-36); Bilirubin,Total 0.4 mg/dL (0.2-1.3); Blood Urea Nitrogen 8 mg/dL (7-17); Calcium 9.3 mg/dL (8.4-10.2); Carbon Dioxide 27 mmol/L (22-30); Chloride 95 mmol/L (98-107); Estimated CRCL calculation 39 ml/min; Estimated Glomerular Filt Rate > 60; Glucose 116 mg/dL (65-110); Lipase 106 U/L (23-300); Potassium 3.4 mmol/L (3.4-5.0); Sodium 138 mmol/L (137-145)
[2021-06-16] MEDS: ONDANSETRON INJ 4 MG/2 ML VIAL IV PUSH (11:37)
[2021-06-16] MEDS: fentaNYL CITRATE INJ (*CRX) 100 MCG/2 ML VIAL 25 MCG IV PUSH (11:37)
[2021-06-16] MEDS: SODIUM CHLORIDE 0.9% IV 1,000 ML 999 ML IV CONT (11:38)
--- NOTE | 2021-06-16 11:49 | ED.ABDPAIN ---
HPI - Abdominal Pain General Chief Complaint: Abdominal Pain Stated Complaint: R Upper abd pain Time Seen by Provider: 06/16/21 11:05 Source: patient and RN notes reviewed Mode of arrival: ambulatory Limitations: no limitations History of Present Illness HPI narrative: This is a 75 year old female who presents for worsening right side abdominal pain. Patient reports she has been dealing with constipation , abdominal distention and right side abdominal pain for a couple of months. She was scheduled to have sigmoid colectomy performed by Dr. Johansen today for treatment of sigmoid colon stricture. She had an outpatient CT abdomen and pelvis performed yesterday and it showed ascites and findings concerning cancer. Patient started doing bowel prep yesterday for today's surgery, but she stopped after surgeon recommended further testing instead of surgery after CT results. She has been having diarrhea all day due to prep. She came to ER today because she is having worsening right side abdominal pain and it is worse with movement. She denies fever or chills. She also denies diarrhea. Related Data Home Medications Medication Instructions Recorded Confirmed albuterol sulfate 90 mcg/actuation 1 puff INHALATION Q4H PRN 12/17/19 06/16/21 aerosol inhaler bacillus coagulans-inulin 1 1 cap PO DAILY 12/17/19 06/16/21 billion cell-250 mg capsule multivitamin,tx-minerals 1 tablet PO DAILY 12/17/19 06/16/21 vitamin B complex 1 cap PO DAILY 12/17/19 06/16/21 celecoxib 200 mg capsule 200 mg PO Q12H cap 07/29/20 06/16/21 cyclobenzaprine 5 mg tablet 5 mg PO DAILY PRN tablet 01/27/21 06/16/21 polyethylene glycol 3350 17 17 g PO BID PRN 01/27/21 06/16/21 gram/dose oral powder calcium 600 mg capsule 600 mg PO DAILY 02/25/21 06/16/21 duloxetine 60 mg capsule,delayed 60 mg PO QAM cap 02/25/21 06/16/21 release fluticasone propionate 50 1 spray NASAL DAILY PRN ml 02/25/21 06/16/21 mcg/actuation nasal spray,suspension levothyroxine 100 mcg tablet 100 mcg PO QAM tablet 02/25/21 06/16/21 sertraline [Zoloft] 25 mg PO QAM 06/14/21 06/16/21 lubiprostone [Amitiza] 24 mcg PO BID 06/16/21 06/16/21 Allergies Allergy/AdvReac Type Severity Reaction Status Date / Time tramadol [From Ultram] Allergy Severe SEVERE Verified 06/14/21 08:11 RESP DEPRESSION codeine AdvReac Severe hallucinati Verified 06/14/21 08:11 ons propoxyphene [From Darvon] AdvReac Severe vomiting Verified 06/14/21 08:11 Review of Systems Review of Systems: All systems reviewed & are unremarkable except as noted in HPI and below PMFSH Past Medical History Medical History (Updated 06/16/21 @ 20:41 by Samantha Vallecillo MD) Abdominal pain Anxiety disorder, unspecified Arthritis of left acromioclavicular joint Asthma Chronic neck and back pain Congestion of nasal sinus Constipation Depression Diarrhea Essential (primary) hypertension Frequent headaches GERD (gastroesophageal reflux disease) History of adverse reaction to anesthesia Hypokalemia Hypothyroidism Hypothyroidism (acquired) IBS (irritable bowel syndrome) Irritable bowel syndrome with predominant constipation Left knee pain Osteoarthritis Osteopenia Osteoporosis Seasonal allergies Wears glasses Weight gain Surgical History Surgical History History of appendectomy 1972 History of arthroplasty of finger 11/2020 - Right thumb Carpometacarpal joint History of back surgery (~10/16/92) History of bunionectomy of both great toes 2010 History of cervical spinal surgery History of foot surgery 11/2020 - left foot hardware removal and correction of bunion History of hand surgery left hand - 2015 Carpectomy History of laparoscopic cholecystectomy 1993 History of left knee replacement 2018 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
--- NOTE | 2021-06-16 13:51 | PC.NURSE ---
Spoke to ultrasound, waiting blood work before paracentesis. Patient heading to room 244.
[2021-06-16 13:53] LABS: Prothrombin Time 13.4 Seconds (11.1-14.7)
[2021-06-16 13:54] LABS: Partial Thromboplastin Time 28.8 SECONDS (22.3-36.8)
--- NOTE | 2021-06-16 14:06 | ADMGEN ---
This patient, Florecita Lane, was admitted to 2 Medical Room 244-. Patient oriented to hospital policies and general routines including ID bracelet, bed and alarms, visiting hours, pain management, procedures, bathroom and other care routines, personal items, smoking policy, room service/diet, and visiting hours. Information on how to activate the Rapid Response Team has been discussed. Patient/Family are encouraged to report perceived risks to care and to ask questions if they do not understand what they are told or what they should do.
--- NOTE | 2021-06-16 15:27 | PM.CNGS ---
Assessment and Plan Assessment and plan (1) Pelvic mass: Code(s): R19.00 - Intra-abdominal and pelvic swelling, mass and lump, unspecified site Status: Acute Assessment and Plan: All imaging reviewed and discussed with the patient in detail. Dr. Johansen had already discussed CT findings with the patient yesterday as well. Findings on the CT scan showed a pelvic mass situated between the sigmoid colon and small bowel with ascites and omental nodularity, concerning for metastatic cancer. US-guided paracentesis ordered today to send ascitic fluid for testing and cytology. She does not appear to have a high-grade colonic obstruction or perforation at this time. Will proceed with diagnostic work-up and urgent surgical intervention would be reserved for high-grade obstruction or perforation. Will repeat x-rays tomorrow and follow with serial abdominal exams. (2) Ascites: Code(s): R18.8 - Other ascites Status: Acute Assessment and Plan: US-guided paracentesis done today for cytology. Will await results. (3) Colon stricture: Code(s): K56.699 - Other intestinal obstruction unspecified as to partial versus complete obstruction Status: Acute Assessment and Plan: Stenosis in the sigmoid colon initially found on colonoscopy related to pelvic mass #1 above. Abdominal x-ray shows moderate amount of colonic gas, no small bowel dilatation, and no evidence of perforation. Will keep NPO for now and continue with further diagnostic work-up. Will repeat abdominal films in the morning. (4) Essential (primary) hypertension: Code(s): I10 - Essential (primary) hypertension Status: Acute Additional Plan I have discussed the patient's case and plan of care with Dr. Johansen. History of Present Illness Consult details Consult date: 06/16/21 Reason for consult: other (Sigmoid stricture, abdominal mass, ascites) Requesting physician: Samantha Vallecillo MD Narrative: This is a 75-year-old female who is known to our service from outpatient evaluation of a sigmoid colon stricture. She had been dealing with ongoing symptoms of constipation for many years, which became more prominent recently. She also had been experiencing some nausea and vomiting, and was primarily following a liquid diet. This lead her to outpatient evaluation with a colonoscopy on 05/26/21, which showed stenosis in the sigmoid colon that was unable to be traversed. Subsequently, she had a barium enema on 06/07/21 that showed a region of sigmoid colonic narrowing without suspicion of underlying mass. She was then referred to our office for outpatient evaluation on 06/11/21, and was scheduled for a hand-assisted laparoscopic sigmoid colectomy. Also, a CT scan of the abdomen and pelvis was ordered for further work-up, and this was done yesterday showing a pelvic insinuating mass between sigmoid and small bowel with small to moderate ascites with omental nodularity. Due to these findings, surgery was cancelled for today and she was going to be set up for further diagnostic testing with concern for metastatic cancer. The patient had called the office and was reporting worsening abdominal pain, bloating, and vomiting, therefore she was directed to the ER for evaluation. Abdominal x-rays taken in the ER showed moderate amount of colonic gas without high-grade obstruction. No free intraperitoneal gas or small bowel dilatation. Labs showed a white blood cell count of 11,300. She also had complaints of left calf pain and subsequently a left lower extremity venous doppler study was ordered, which showed no DVT. The patient is being admitted for further evaluation and our service has been consulted. She was taken for US-guided paracentesis this afternoon. Ascitic fluid has been sent for cytology and testing. She is now seen on the medical floor. She reports abdominal pain has improved. Denies nausea. She states she just feels bloated and some generalized abdominal disco
[2021-06-16 16:01] LABS: Source Peritoneal Fluid Peritoneal Fluid
[2021-06-16 16:02] LABS: Appearance Peritoneal Fluid Bloody (Clear); Color Peritoneal Fluid Brown (Colorless); Nucleated Cells Peritoneal Flu 1286 /uL (0-500); RBC Peritoneal Fluid 2742 /uL (0-100000)
[2021-06-16 17:02] LABS: Lymphocytes Peritoneal Fluid 17 %; Macrophages Peritoneal Fluid 37 %; Neutrophils Peritoneal Fluid 22 % (0-25); Other Cells Peritoneal Fluid 24 %
--- NOTE | 2021-06-16 18:29 | PM.IMHP ---
H&P: HPI History of Present Illness Date/Time: 06/16/21 18:29Thidalia is a 75-year-old female patient who is been having chronic constipation. She also has GERD and bloating. She also has IBS C. the patient had an endoscopy on 05/26/2021 which was read as colonic stenosis, internal hemorrhoids, diverticulosis without perforation or abscess without bleeding. The patient was referred to surgery on 06/11/2021. She had a barium enema on 06/07/2021 which shows a region of sigmoid colonic narrowing without suspicion of underlying mask otherwise unremarkable. However today she presented for worsening right-sided abdominal pain. She was scheduled to have a sigmoid colectomy by Dr. lewis here today for treatment a sigmoid colon stricture. She had an outpatient CT abdomen and pelvis performed yesterday and showed ascites and findings concerning for cancer. Patient started doing bowel prep yesterday for today surgery but she stopped after surgery recommended further testing instead of surgery due to the CT results. The patient has been having diarrhea due to the prep. Today the patient underwent a successful ultrasound-guided paracentesis yielding 400 mL of clear jessee colored fluid. Cytology examination is pending. the patient was given IV fluids, fentanyl and Zofran in the emergency room. The patient is being admitted for observation on the date of service of 06/16/2021. Chief Complaint: abdominal pain . Review of Systems Review of Systems: All systems reviewed & are unremarkable except as noted in HPI and below Constitutional: Constitutional: Reports as per HPI and Reports no additional constitutional complaints Eyes: Eyes: Reports as per HPI and Reports no additional eye complaints ENT: Reports system reviewed and no additional complaints, except as documented and Reports Normal hearing present Cardiovascular: Cardiovascular: Reports no additional cardiovascular complaints Respiratory: Respiratory: Reports no additional respiratory complaints and Reports no additional respiratory complaints Gastrointestinal: Gastrointestinal: Reports as per HPI and Reports no additional gastrointestinal complaints Musculoskeletal: Musculoskeletal: Reports no additional musculoskeletal complaints Integumentary/Breasts: Skin/Breast: Reports system reviewed and no additional complaints, except as docu and Reports as per HPI Neurologic: Reports system reviewed and no additional complaints, except as documented, Reports as per HPI and Reports Normal hearing present Psychiatric: Psychiatric: Reports no additional psychiatric complaints and Reports as per HPI Endocrine: Endocrine: Reports no additional endocrine complaints Hematologic/Lymphatic: Hematologic/Lymphatic: Reports no additional hematologic/lymphatic complaints Allergic/Immunologic: Allergic/Immunologic: Reports no additional allergic/immunologic complaints PMFSH Past Medical History Medical History (Updated 06/16/21 @ 18:43 by Christi Nuñez NP) Abdominal pain Anxiety disorder, unspecified Arthritis of left acromioclavicular joint Asthma Chronic neck and back pain Congestion of nasal sinus Constipation Depression Diarrhea Essential (primary) hypertension Frequent headaches GERD (gastroesophageal reflux disease) History of adverse reaction to anesthesia Hypokalemia Hypothyroidism Hypothyroidism (acquired) IBS (irritable bowel syndrome) Irritable bowel syndrome with predominant constipation Left knee pain Osteoarthritis Osteopenia Osteoporosis Seasonal allergies Wears glasses Weight gain Surgical History Surgical History History of appendectomy 1972 History of arthroplasty of finger 11/2020 - Right thumb Carpometacarpal joint History of back surgery (~10/16/92) History of bunionectomy of both great toes 2009 History of cervical spinal surgery History of foot surgery 11/2020 - left foot hardware removal and correction of
[2021-06-16] MEDS: SODIUM CHLORIDE 0.9% IV 1,000 ML 125 ML IV CONT (18:44)
[2021-06-16] MEDS: MELATONIN 5 MG TABLET PO (23:07)
[2021-06-17] MEDS: SODIUM CHLORIDE 0.9% IV 1,000 ML 125 ML IV CONT (03:00)
[2021-06-17 05:58] LABS: Basophils Absolute Auto 0.1 K/mm3 (0.0-0.1); Basophils Percent Auto 0.6 % (0.2-1.2); Eosinophils Absolute Auto 0.1 K/mm3 (0-0.3); Eosinophils Percent Auto 1.2 % (0-4.4); Hematocrit 38.4 % (37.0-47.0); Hemoglobin 12.2 g/dL (12.0-15.0); Immature Granulocyte Absolute 0.04 K/mm3 (0.00-0.031); Immature Granulocyte Percent A 0.4 % (0-0.5); Lymphocytes Absolute Auto 1.79 K/mm3 (0.9-3.2); Lymphocytes Percent Auto 17.3 % (18.3-44.2); Mean Corpuscular HGB Conc 31.8 g/dl (32-36); Mean Corpuscular Hemoglobin 30.6 pg (26-34); Mean Corpuscular Volume 96.2 fl (80-100); Mean Platelet Volume 8.6 fl (7.4-10.4); Monocytes Absolute Auto 0.9 K/mm3 (0.1-0.6); Monocytes Percent Auto 8.3 % (2.6-8.5); Neutrophils Absolute Auto 7.5 K/mm3 (1.3-6.7); Neutrophils Percent Auto 72.2 % (45.5-73.1); Platelet Count Result 430 k/mm3 (150-375); Red Blood Count 3.99 M/mm3 (4.2-5.4); Red Cell Distribution Width 12.5 % (11.5-14.5); White Blood Count 10.4 K/mm3 (4.5-10.0)
[2021-06-17] MEDS: LEVOTHYROXINE SODIUM INJ 100 MCG/5 ML VIAL 50 MCG IV PUSH (06:06)
[2021-06-17 06:09] LABS: Alanine Aminotransferase 12 U/L (4-35); Alkaline Phosphatase 82 U/L (38-126); Anion Gap 13 mmol/L (8-16); Aspartate Amino Transferase 21 U/L (14-36); Bilirubin,Total 0.2 mg/dL (0.2-1.3); Blood Urea Nitrogen 6 mg/dL (7-17); Calcium 8.2 mg/dL (8.4-10.2); Carbon Dioxide 22 mmol/L (22-30); Chloride 104 mmol/L (98-107); Estimated CRCL calculation 57 ml/min; Estimated Glomerular Filt Rate > 60; Glucose 91 mg/dL (65-110); Magnesium 1.9 mg/dL (1.6-2.3); Potassium 3.4 mmol/L (3.4-5.0); Sodium 139 mmol/L (137-145)
[2021-06-17] MEDS: DULoxetine HCL 60 MG CAPSULE.DR PO (08:33)
[2021-06-17] MEDS: SERTRALINE HCL 25 MG TABLET PO (08:33)
--- NOTE | 2021-06-17 10:11 | PM.IMPN ---
Progress Note: A&P Assessment and Plan (1) Adenocarcinoma: Code(s): C80.1 - Malignant (primary) neoplasm, unspecified Status: Acute Assessment and Plan: Preliminary cytology revealed adenocarcinoma. Other identifying testing is still -will draw LDH, alpha fetoprotein, CEA, CA-125, tumor marker hCG -consult Dr. Kwan. I will ask his recommendations on if we need additional biopsy or if the pathology from the ascites will be sufficient -I have discussed the case with surgery, no colon surgery at this time -if patient continues to have issues with tolerating a diet, may need to be evaluated for colonic stent for symptomatic relief (2) Ascites: Code(s): R18.8 - Other ascites Status: Acute Assessment and Plan: Successful ultrasound-guided paracentesis yielding 400 mL of clear jessee-colored fluid 06/16/21 -cytology showing adenocarcinoma -no signs of infection (3) Pelvic mass: Code(s): R19.00 - Intra-abdominal and pelvic swelling, mass and lump, unspecified site Status: Acute Assessment and Plan: CT revealed pelvic insinuating mass between sigmoid and small bowel, small to moderate ascites with omental nodularity. -Differential diagnosis includes mesenteric carcinoid, ovarian cancer or colon cancer with carcinomatosis -Endometriosis would be a benign consideration -Consult Dr. Kwan, run serum tumor markers -Consider [employer]GEANT referral depending on results and recommendations from Dr. Kwan (4) Colon stricture: Code(s): K56.699 - Other intestinal obstruction unspecified as to partial versus complete obstruction Status: Acute Assessment and Plan: Likely due to tumor -may need colonic stent (5) Depression: Qualifiers: Depression Type: unspecified Qualified Code(s): F32.9 - Major depressive disorder, single episode, unspecified Code(s): F32.9 - Major depressive disorder, single episode, unspecified Status: Acute Assessment and Plan: Chronic -continue zoloft and cymbalta (6) Essential (primary) hypertension: Code(s): I10 - Essential (primary) hypertension Status: Acute Assessment and Plan: Last bp 117/45 -she takes HCTZ at home, will hold this for now since she is NPO and on fluids -hydralazine PRN (7) Hypothyroidism (acquired): Code(s): E03.9 - Hypothyroidism, unspecified Status: Acute Assessment and Plan: continue levothyroxine Time Spent With Patient Time with patient: 25 - 35 minutes Subjective Date/time seen: 06/17/21 10:11 Interval history: Pt is a 75-year-old female here for abdominal pain. Patient states the pain is about a 3 or 4 out of 10 right now. She has not been having any further bowel movements and denies nausea or vomiting. She has not eaten or drank anything and her mouth feels dry. She denies CP, SOB, fevers or chills. We discussed her new test results and that Dr. Kwan will be seeing her today. All questions answered. Review of Systems Review of Systems: All systems reviewed & are unremarkable except as noted in HPI and below Exam Narrative: General: Well developed well nourished patient in NAD HEENT: normocephalic Neck: supple Neuro: Alert and oriented x4 CV:RRR Resp:CTA Abd: Soft,partially distended. Diffuse pain to the abdomen on palpation. Positive bowel sounds Extremities: No swelling, erythema, or pain to palpation. Objective Data Vital Signs Vital Signs: Vital Signs - 24 hr 06/16/21 10:24 06/16/21 11:11 06/16/21 12:07 Temperature 98.4 F 98.6 F 98.6 F Pulse Rate 105 H 107 H Respiratory Rate 16 18 Blood Pressure 98/41 L 115/75 Pulse Oximetry 98 97 06/16/21 12:45 06/16/21 13:50 06/16/21 14:00 Temperature 99.2 F Pulse Rate 96 95 99 Respiratory Rate 18 18 16 Blood Pressure 123/57 L 114/52 L 117/41 L Pulse Oximetry 97 97 98 06/16/21 20:00 06/16/21 22:00 Temperature 98.2 F Pulse
[2021-06-17] MEDS: SODIUM CHLORIDE 0.9% IV 1,000 ML 75 ML IV CONT (10:39)
[2021-06-17 10:48] LABS: Lactate Dehydrogenase 314 U/L (313-618)
[2021-06-17 11:18] LABS: Carcinoembryonic Antigen 0.4 ng/mL (0.0-3.0)
--- NOTE | 2021-06-17 11:43 | PM.PNGS ---
Progress Note: A&P Assessment and Plan (1) Adenocarcinoma: Code(s): C80.1 - Malignant (primary) neoplasm, unspecified Status: Acute Assessment and Plan: Awaiting further cytology and tumor markers. Seems likely to be ovarian cancer given no mass seen on colonoscopy. Will reserve surgery for signs of complete obstruction. 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 Will await Dr. Kwan's assessment and recommendations. (2) Abdominal ascites: Code(s): R18.8 - Other ascites Status: Acute (3) Pelvic mass: Code(s): R19.00 - Intra-abdominal and pelvic swelling, mass and lump, unspecified site Status: Acute (4) Colon stricture: Code(s): K56.699 - Other intestinal obstruction unspecified as to partial versus complete obstruction Status: Acute Subjective Subjective Date/Time Seen: 06/17/21 11:43 Interval history: Still having generalized abdominal pain. Bowels moving. No nausea or vomiting. Exam GI: Inspection: other (mildly distended) GI Palp: Yes Tenderness to palpation present (GI) (diffusely), No Guarding due to palpation present (GI) and No Rebound tenderness present Objective Data Vital Signs Vital Signs: Vital Signs - 24 hr 06/16/21 12:07 06/16/21 12:45 06/16/21 13:50 Temperature 37.0 C Pulse Rate 96 95 Respiratory Rate 18 18 Blood Pressure 123/57 L 114/52 L Pulse Oximetry 97 97 06/16/21 14:00 06/16/21 20:00 06/16/21 22:00 Temperature 37.3 C 36.8 C Pulse Rate 99 99 96 Respiratory Rate 16 16 20 Blood Pressure 117/41 L 117/45 L Pulse Oximetry 98 98 98 Intake/Output Intake/Output: Intake & Output 06/14/21 06/15/21 06/16/21 06/17/21 23:59 23:59 23:59 23:59 Intake Total 1000 2100 Output Total 400 750 Balance 600 1350 Meds/Results Medications: Active Medications Generic Name Dose Route Start Last Admin Trade Name Freq PRN Reason Stop Dose Admin Albuterol 2 puff 06/16/21 18:29 Albuterol Sulfate (*Sp) Aerosol 1 Puff INHALATION Q6HRT PRN Shortness Of Breath Duloxetine HCl 60 mg 06/17/21 09:00 06/17/21 08:33 Duloxetine Hcl 60 Mg Capsule. PO 60 mg QAM FOREIGN Administration Fentanyl Citrate 25 mcg 06/16/21 12:48 Fentanyl Citrate Inj (*Crx) 100 Mcg/2 Ml Vial IV PUSH Q2H PRN Pain Rated 7-10 Fluticasone Propionate 1 spray 06/16/21 18:47 Fluticasone Propionate 0.05% Na Spr 16 Gm Btl (*Bkc) NASAL DAILY PRN Congestion Hydralazine HCl 10 mg 06/16/21 18:49 Hydralazine Hcl 20 Mg/Ml Vial IV PUSH Q8H PRN Blood Pressure - High Sodium Chloride 1,000 mls @ 75 mls/hr 06/16/21 12:50 06/17/21 10:39 Normal Saline Iv IV CONT 75 mls/hr .[id number] FOREIGN Administration Acetaminophen 1,000 mg in 100 mls @ 400 mls/hr 06/16/21 16:25 06/17/21 10:50 Ofirmev 1,000 Mg Ivpb IVPB 06/17/21 16:26 Infused Q6H PRN Infusion Pain Rated 4-6 Levothyroxine Sodium 100 mcg 06/18/21 06:30 Levothyroxine Sodium 100 Mcg Tablet PO DAILY@0630 FOREIGN Melatonin 5 mg 06/16/21 21:00 06/16/21 23:07 Melatonin 5 Mg Tablet PO 5 mg HS FOREIGN Administration Ondansetron HCl 4 mg 06/16/21 12:48 Ondansetron Inj 4 Mg/2 Ml Vial IV PUSH Q4H PRN Nausea Sertraline HCl 25 mg 06/17/21 09:00 06/17/21 08:33 Sertraline Hcl 25 Mg Tablet PO 25 mg QAM FOREIGN Administration Radiology Results: ITS Impressions Venous Doppler Study 06/16/21 12:19 IMPRESSION: 1. No left lower extremity deep venous thrombosis. Paracentesis Ultrasound 06/16/21 15:40 IMPRESSION: 1. Successful ultrasound-guided paracentesis yielding 400 mL of clear jessee-colored fluid. Abdomen X-Ray 06/17/21 09:23 IMPRESSION: 1. Moderate colonic gas, nonobstructive bowel gas pattern. Labs Labs: Laboratory Results - last 24 hr 06/16/21 06/16/21 06/16/21 11:41
--- NOTE | 2021-06-17 12:34 | PDONCCN ---
HPI - Date of Consult Date/Time: 06/17/21 12:34 Requesting Physician: Corina Lowery PA-C Primary Care Provider: Jose R Colin MD - Consult Narrative Reason for consult: Likely metastatic ovarian cancer Narrative: Florecita Lane is a 75 year old female who has been in good health except history of GERD came into the hospital with abdominal distention and abdominal pain. She was also dealing with chronic constipation and had colonoscopy done on May 26 that showed colonic stenosis with internal hemorrhoid and diverticulosis without any evidence of mass. CT abdomen and pelvis done on June 15 that showed 3.5 x 2 cm mass in pelvis between sigmoid colon and small bowel along with moderate ascites and omental nodularity. Patient had paracentesis done with 400 cc of jessee colored fluid removed neck came back positive for adenocarcinoma. She denies any previous history of malignancy. There is a family history of cancer in the father with prostate cancer. No family history of female cancer. She denies any history of smoking and drinking. Review of Systems - Review of Systems All systems reviewed & are unremarkable except as noted in HPI and bel - Neurologic Reports system reviewed and no additional complaints, except as documented, Reports hearing normal [facility] Medical History: Medical History (Last Updated 06/16/21 @ 18:43 by Christi Nuñez NP) Abdominal pain Anxiety disorder, unspecified Arthritis of left acromioclavicular joint Asthma Chronic neck and back pain Congestion of nasal sinus Constipation Depression Diarrhea Essential (primary) hypertension Frequent headaches GERD (gastroesophageal reflux disease) History of adverse reaction to anesthesia Hypokalemia Hypothyroidism Hypothyroidism (acquired) IBS (irritable bowel syndrome) Irritable bowel syndrome with predominant constipation Left knee pain Osteoarthritis Osteopenia Osteoporosis Seasonal allergies Wears glasses Weight gain Surgical History: Surgical History (Last Reviewed 06/16/21 @ 18:37 by Christi Nuñez NP) History of appendectomy 1972 History of arthroplasty of finger 11/2020 - Right thumb Carpometacarpal joint History of back surgery Onset Date: ~10/16/92 History of bunionectomy of both great toes 2010 History of cervical spinal surgery History of foot surgery 11/2020 - left foot hardware removal and correction of bunion History of hand surgery left hand - 2015 Carpectomy History of laparoscopic cholecystectomy 1992 History of left knee replacement 2018 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 Status post left knee replacement Family History: Family History (Last Reviewed 06/16/21 @ 18:37 by Christi Nuñez NP) Father , cancer not specified Malignant neoplasm of prostate Mother Alcoholic Grandparent Cancer Grandparent Arthritis Sibling Arthritis - Social History Social History: Social History (Last Reviewed 06/16/21 @ 18:39 by Christi Nuñez NP) Gender Identity: Gender identity (if verbalized by the patient): Female Alcohol Use: Alcohol intake: never Substance Use: Substance use: never Substance use type: does not use Others: Spiritual care concerns: No Living Arrangements: Living arrangements: with family Oppucation/Education: Occupation/Education: retired Smoking Status: Smoking status: Never smoker Second hand tobacco smoke exposure: Yes Meds Home Medications Medication Instructions Recorded Confirmed Type albuterol sulfate 90 mcg/actuation 1 puff INHALATION Q4H PRN 12/17/19 06/16/21 History aerosol inhaler bacillus coagulans-inulin 1 1 cap PO DAILY 12/17/19 06/16/21 History billion cell-250 mg capsule multivitamin,tx-minerals 1 tablet PO DAILY 12/17/19 06/16/21 History vitamin B complex 1 cap PO DAILY 12/17/19 06/16/21 History celecoxib 200
[2021-06-17 14:00] VITALS: BP 124/52; PULSE 91; RESP 16; TEMP 36.6; O2SAT 96
[2021-06-17] MEDS: MELATONIN 5 MG TABLET PO (20:42)
[2021-06-17 21:41] VITALS: BP 105/51; PULSE 87; RESP 16; TEMP 36.4; O2SAT 98
[2021-06-18] MEDS: fentaNYL CITRATE INJ (*CRX) 100 MCG/2 ML VIAL 25 MCG IV PUSH (02:05)
[2021-06-18] MEDS: SODIUM CHLORIDE 0.9% IV 1,000 ML 50 ML IV CONT (03:14)
[2021-06-18 05:54] VITALS: BP 117/52; PULSE 84; RESP 16; TEMP 36.1; O2SAT 96
[2021-06-18] MEDS: LEVOTHYROXINE SODIUM 100 MCG TABLET PO (05:56)
[2021-06-18 06:07] LABS: Hematocrit 37.6 % (37.0-47.0); Hemoglobin 11.9 g/dL (12.0-15.0); Mean Corpuscular HGB Conc 31.6 g/dl (32-36); Mean Corpuscular Volume 97.9 fl (80-100); Mean Platelet Volume 8.7 fl (7.4-10.4); Platelet Count Result 421 k/mm3 (150-375); Red Blood Count 3.84 M/mm3 (4.2-5.4); Red Cell Distribution Width 12.3 % (11.5-14.5); White Blood Count 9.4 K/mm3 (4.5-10.0)
[2021-06-18 06:24] LABS: Anion Gap 8 mmol/L (8-16); Blood Urea Nitrogen 4 mg/dL (7-17); Calcium 8.1 mg/dL (8.4-10.2); Carbon Dioxide 20 mmol/L (22-30); Chloride 110 mmol/L (98-107); Estimated CRCL calculation 84 ml/min; Estimated Glomerular Filt Rate > 60; Glucose 89 mg/dL (65-110); Potassium 3.3 mmol/L (3.4-5.0); Sodium 138 mmol/L (137-145)
[2021-06-18] MEDS: POTASSIUM CHLORIDE 20 MEQ PACKET (FOR LIQUID) 40 MEQ PO (08:59)
[2021-06-18] MEDS: DULoxetine HCL 60 MG CAPSULE.DR PO (08:59)
[2021-06-18] MEDS: SERTRALINE HCL 25 MG TABLET PO (08:59)
--- NOTE | 2021-06-18 11:59 | PM.DS ---
DS: Admitting Diagnosis Admitting Diagnosis cancer DS: Discharge Diagnosis Discharge Diagnosis (1) Adenocarcinoma: Code(s): C80.1 - Malignant (primary) neoplasm, unspecified Status: Acute Assessment and Plan: Preliminary cytology revealed adenocarcinoma. Other identifying testing is still -CA-125 significantly high 1493, suspect ovarian cancer. CEA negative -Dr. Kwan consulted, she has an appointment to follow up with him outpatient next Monday and he will refer her to a sample tester grinder oncologist as well -I have discussed the case with surgery, no colon surgery at this time. -if patient continues to have issues with tolerating a diet, may need to be evaluated for colonic stent for symptomatic relief. She is to continue MiraLax to help keep her stool soft so it can pass through her stricture which is due to extrinsic compression on the colon due to the cancer. (2) Ascites: Code(s): R18.8 - Other ascites Status: Acute Assessment and Plan: Successful ultrasound-guided paracentesis yielding 400 mL of clear jessee-colored fluid 06/16/21 -cytology showing adenocarcinoma -no signs of infection (3) Pelvic mass: Code(s): R19.00 - Intra-abdominal and pelvic swelling, mass and lump, unspecified site Status: Acute Assessment and Plan: CT revealed pelvic insinuating mass between sigmoid and small bowel, small to moderate ascites with omental nodularity. Likely ovarian cancer, awaiting pathology as above (4) Colon stricture: Code(s): K56.699 - Other intestinal obstruction unspecified as to partial versus complete obstruction Status: Acute Assessment and Plan: Due to extrinsic compression -may need colonic stent (5) Depression: Qualifiers: Depression Type: unspecified Qualified Code(s): F32.9 - Major depressive disorder, single episode, unspecified Code(s): F32.9 - Major depressive disorder, single episode, unspecified Status: Acute Assessment and Plan: Chronic -continue zoloft and cymbalta (6) Essential (primary) hypertension: Code(s): I10 - Essential (primary) hypertension Status: Acute Assessment and Plan: Last bp 119/55. Continue home medications (7) Hypothyroidism (acquired): Code(s): E03.9 - Hypothyroidism, unspecified Status: Acute Assessment and Plan: continue levothyroxine DS: Summary Hospital Course Hospital Course: Date of service 06/18/2021 Patient is a 75-year-old female who presented emergency room on June 16, 2021 for worsening abdominal pain, distension and constipation. Vitals in the ER were temperature 98.4?, pulse 105, respiratory rate 16, blood pressure 98/41, pulse ox 98 on room air. CBC showed initial white blood cell count 11.3, hemoglobin 14.1, hematocrit 42.8, platelets 629. BMP relatively benign. UA negative for evidence of infection. CT of the abdomen pelvis (done the day prior outpatient): Masslike region in the pelvis concerning for ovarian cancer or colon cancer with lymph node enlargement. Patient had a recent colonoscopy which did not show any abnormalities. Stricture likely due to extrinsic compression of the pelvic mass. Venous Doppler showed no DVT. Patient was admitted to the hospitalist service and underwent a paracentesis. This was evaluated by cytology and the. There were adenocarcinoma cells in the fluid. It was sent off for further identification. Tumor markers were ordered and CA 125 significantly elevated, favor ovarian. Dr. Kwan was consulted who recommended outpatient follow-up and outpatient sample tester grinder Oncology follow-up as well. I discussed the findings with the patient as well as surgery and prognosis of such. The patient is doing relatively well with this information although she is upset, understandably. She does have some pain to the abdomen but we want to avoid narcotics due to the risk of constipation and her
[2021-06-18 14:00] VITALS: BP 119/55; PULSE 88; RESP 20; TEMP 36.9; O2SAT 100
[2021-06-19 00:47] LABS: CA-125 1493 U/mL (<35)
[2021-06-19 08:07] LABS: HCG Tumor Marker 2 mIU/mL (***)
[2021-06-19 21:59] LABS: Glucose Peritoneal Fluid 91 mg/dL
[2021-06-22 22:37] LABS: Alpha Fetoprotein Tumor Marker 2.3 ng/mL (<6.1)
[2021-06-22 23:02] LABS: Amylase Peritoneal Fluid <10 U/L
[2021-06-23 00:27] LABS: Albumin Peritoneal Fluid 3.2 g/dL
== END 2021-06-18 14:59 | disposition home or self-care (01) | DRG 844 ==
LOC: ANHED 11:29 → ANH2MED 13:53
PROVIDERS: Emergency Medicine; Nurse Practitioner; Physician Assistant; Admitting Provider Internal Medicine Nephrology; Emergency Provider General Practice; PCP Family Medicine; Visit Provider Internal Medicine
DX: C80.1 Malignant (primary) neoplasm, unspecified (principal); R18.0 Malignant ascites; K21.9 Gastro-esophageal reflux disease without esophagitis; K58.1 Irritable bowel syndrome with constipation; K57.90 Diverticulosis of intestine, part unspecified, without perforation or abscess without bleeding; K64.8 Other hemorrhoids; F32.9 Major depressive disorder, single episode, unspecified; I10 Essential (primary) hypertension; J45.909 Unspecified asthma, uncomplicated; E03.9 Hypothyroidism, unspecified; Z79.899 Other long term (current) drug therapy
CPT/HCPCS: 36415; 49083; 74019; 80048; 80053; 81001; 82042; 82105; 82150; 82378; 82945; 83605; 83615; 83690; 83735; 84443; 84702; 85025; 85027; 85060; 85610; 85730; 86304; 87070; 87075; 87086; 87088; 87205; 88104; 88108; 88305; 88342; 89051; 93971; 96361; 96374; 96375; 99285; A9270; G0378; J0131; J2405; J3010; J7030

== ENCOUNTER 2021-06-25 10:54 | Emergency (ER) | payer MEDICARE, OTHER, SELFPAY ==
[2021-06-25] VITALS (13 sets, daily range): BP systolic 115–132; BP diastolic 60–72; PULSE 80–99; RESP 12–22; TEMP 36.6; O2SAT 96–98
--- NOTE | ~2021-06-25 | US_ITS ---
EXAMINATION: US abdomen limited EXAM DATE: 06/25/2021 15:44 INDICATION: Ascites secondary to ovarian cancer . Abdominal pain, distention. TECHNIQUE: Multiple grayscale and Doppler images of the abdomen were obtained (by a technologist who performed the scan) and subsequently reviewed. All 4 quadrants were scanned by both technologist and by myself. FINDINGS: Patient has small to moderate amount of abdominal ascites on CT. No sizable pocket identified for saf e therapeutic percutaneous drainage. Bowel was insinuating into the within ascites. Patient is sched uled for outpatient paracentesis next week. IMPRESSION: Small pockets of ascites. Reviewed, dictated and finalized at location A. IMPRESSION: Small pockets of ascites.
--- NOTE | ~2021-06-25 | CT_ITS ---
EXAMINATION: CT abdomen pelvis w con EXAM DATE: 06/25/2021 15:14 INDICATION: Abdominal pain, fullness. Diagnosed with ovarian cancer. Abdominal pain, pressure. TECHNIQUE: Spiral CT of the abdomen and pelvis was performed following intravenous injection of 100 m L Omnipaque 350. Axial, coronal and sagittal images of the abdomen and pelvis were reviewed. The do se-length product (DLP) for this examination was 482.98 mGy-cm. The exposure was tailored according to patient size (auto mA exposure control), and iterative reconstruction (ASIR) was used as additiona l dose reduction technique. Comparison is made to prior examination from 06/15/2021. FINDINGS: There is omental carcinomatosis. Small to moderate amount of ascites, with slight interval increase in size. Ill-defined masslike region in the pelvis, difficult to measure given its insinuat ing shape, but approximately 3 x 4 cm. This is contiguous to loops of small bowel and segment of the sigmoid colon. There is also another region of soft tissue measuring about 2 cm, could be left ovary. The liver, spleen, adrenal glands and pancreas are unremarkable. There are cholecystectomy clips. P ortal and splenic veins are patent. Kidneys enhance symmetrically. There is no hydronephrosis. Ther e is a right renal cyst measuring 3 cm. The uterus is not identified and has likely been surgically resected. The bladder is unremarkable. Possible identification of an unremarkable appendix. No pericecal inflammation. The stomach and smal l bowel are unremarkable. There is expected amount of colonic stool. No free intraperitoneal gas. The heart is normal in size. There are no pericardial or pleural effusions. The lung bases are un remarkable. There are no osteoblastic or osteolytic lesions identified. IMPRESSION: Pelvic insinuating mass between sigmoid and small bowel, small to moderate ascites with o mental nodularity, carcinomatosis. Findings are consistent with diagnosis of ovarian cancer. Reviewed, dictated and finalized at location A. IMPRESSION: Pelvic insinuating mass between sigmoid and small bowel, small to m oderate ascites with omental nodularity, carcinomatosis. Findings are consisten t with diagnosis of ovarian cancer.
[2021-06-25 14:02] LABS: Basophils Absolute Auto 0.1 K/mm3 (0.0-0.1); Basophils Percent Auto 0.6 % (0.2-1.2); Eosinophils Absolute Auto 0.1 K/mm3 (0-0.3); Eosinophils Percent Auto 0.8 % (0-4.4); Hematocrit 42.8 % (37.0-47.0); Hemoglobin 13.8 g/dL (12.0-15.0); Immature Granulocyte Absolute 0.05 K/mm3 (0.00-0.031); Immature Granulocyte Percent A 0.4 % (0-0.5); Lymphocytes Absolute Auto 2.02 K/mm3 (0.9-3.2); Lymphocytes Percent Auto 14.9 % (18.3-44.2); Mean Corpuscular HGB Conc 32.2 g/dl (32-36); Mean Corpuscular Hemoglobin 30.4 pg (26-34); Mean Corpuscular Volume 94.3 fl (80-100); Mean Platelet Volume 8.4 fl (7.4-10.4); Monocytes Percent Auto 7.4 % (2.6-8.5); Neutrophils Absolute Auto 10.3 K/mm3 (1.3-6.7); Neutrophils Percent Auto 75.9 % (45.5-73.1); Platelet Count Result 657 k/mm3 (150-375); Red Blood Count 4.54 M/mm3 (4.2-5.4); Red Cell Distribution Width 12.7 % (11.5-14.5); White Blood Count 13.6 K/mm3 (4.5-10.0)
[2021-06-25 14:17] LABS: INR 0.9; Prothrombin Time 12.3 Seconds (11.1-14.7)
[2021-06-25 14:18] LABS: Partial Thromboplastin Time 27.1 SECONDS (22.3-36.8)
[2021-06-25 14:20] LABS: Alanine Aminotransferase 31 U/L (4-35); Albumin Level 3.8 g/dL (3.5-5.1); Alkaline Phosphatase 130 U/L (38-126); Anion Gap 7 mmol/L (8-16); Aspartate Amino Transferase 46 U/L (14-36); Bilirubin,Total 0.3 mg/dL (0.2-1.3); Blood Urea Nitrogen 12 mg/dL (7-17); Calcium 9.5 mg/dL (8.4-10.2); Carbon Dioxide 31 mmol/L (22-30); Chloride 98 mmol/L (98-107); Estimated Glomerular Filt Rate > 60; Glucose 105 mg/dL (65-110); Lipase 114 U/L (23-300); Potassium 4.2 mmol/L (3.4-5.0); Sodium 136 mmol/L (137-145)
--- NOTE | 2021-06-25 14:55 | ED.ABDPAIN ---
HPI - Abdominal Pain General Chief Complaint: Abdominal Pain Stated Complaint: Needs paracentesis per Time Seen by Provider: 06/25/21 14:09 Source: patient and family Mode of arrival: ambulatory Limitations: no limitations History of Present Illness HPI narrative: Patient had recent diagnosis of ovarian cancer, diagnosed after abdominal centesis 1 week ago. Was seen by her oncologist today who referred her to the emergency room for another paracentesis because of the constant abdominal pain. Patient denies any fever, chills, nausea, vomiting. Patient had a prescription of [place] prescribed by Dr. Kwan prior to arrival Related Data Home Medications Medication Instructions Recorded Confirmed albuterol sulfate 90 mcg/actuation 1 puff INHALATION Q4H PRN 12/17/19 06/16/21 aerosol inhaler bacillus coagulans-inulin 1 1 cap PO DAILY 12/17/19 06/16/21 billion cell-250 mg capsule multivitamin,tx-minerals 1 tablet PO DAILY 12/17/19 06/16/21 vitamin B complex 1 cap PO DAILY 12/17/19 06/16/21 celecoxib 200 mg capsule 200 mg PO Q12H cap 07/29/20 06/16/21 cyclobenzaprine 5 mg tablet 5 mg PO DAILY PRN tablet 01/27/21 06/16/21 polyethylene glycol 3350 17 17 g PO BID PRN 01/27/21 06/16/21 gram/dose oral powder calcium 600 mg capsule 600 mg PO DAILY 02/25/21 06/16/21 duloxetine 60 mg capsule,delayed 60 mg PO QAM cap 02/25/21 06/16/21 release fluticasone propionate 50 1 spray NASAL DAILY PRN ml 02/25/21 06/16/21 mcg/actuation nasal spray,suspension levothyroxine 100 mcg tablet 100 mcg PO QAM tablet 02/25/21 06/16/21 sertraline [Zoloft] 25 mg PO QAM 06/14/21 06/16/21 lubiprostone [Amitiza] 24 mcg PO BID 06/16/21 06/16/21 Allergies Allergy/AdvReac Type Severity Reaction Status Date / Time tramadol [From Ultram] Allergy Severe SEVERE Verified 06/14/21 08:11 RESP DEPRESSION codeine AdvReac Severe hallucinati Verified 06/14/21 08:11 ons propoxyphene [From Darvon] AdvReac Severe vomiting Verified 06/14/21 08:11 Review of Systems Review of Systems: CONSTITUTIONAL: Denies fever, chills, or sweats. EYES: Denies visual changes, redness, or discharge. ENT: Denies rhinorrhea, congestion, sore throat, or otalgia. CARDIOVASCULAR: Denies chest pain, palpitations, or edema. RESPIRATORY: Denies cough or dyspnea. GASTROINTESTINAL: Denies abdominal pain, nausea, vomiting, or diarrhea. GENITOURINARY: Denies dysuria or hematuria. SKIN: Denies rash or itching. MUSCULOSKELETAL: Denies back pain, joint pain, or myalgia. NEUROLOGIC: Denies headache, numbness, or weakness. PSYCHIATRIC: Denies anxiety or depression. [facility] Past Medical History Medical History Abdominal pain Anxiety disorder, unspecified Arthritis of left acromioclavicular joint Asthma Chronic neck and back pain Congestion of nasal sinus Constipation Depression Diarrhea Essential (primary) hypertension Frequent headaches GERD (gastroesophageal reflux disease) History of adverse reaction to anesthesia Hypokalemia Hypothyroidism Hypothyroidism (acquired) IBS (irritable bowel syndrome) Irritable bowel syndrome with predominant constipation Left knee pain Osteoarthritis Osteopenia Osteoporosis Seasonal allergies Wears glasses Weight gain Surgical History Surgical History History of appendectomy 1972 History of arthroplasty of finger 11/2020 - Right thumb Carpometacarpal joint History of back surgery (~10/16/92) History of bunionectomy of both great toes 2010 History of cervical spinal surgery History of foot surgery 11/2020 - left foot hardware removal and correction of bunion History of hand surgery left hand - 2015 Carpectomy History of laparoscopic cholecystectomy 1993 History of left knee replacement 2018 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
[2021-06-25] MEDS: fentaNYL CITRATE INJ (*CRX) 100 MCG/2 ML VIAL 12.5 MCG IV PUSH ×2 (15:04→16:52)
[2021-06-25] MEDS: SODIUM CHLORIDE 0.9% IV 1,000 ML 999 ML IV CONT (15:04)
[2021-06-25] MEDS: ONDANSETRON INJ 4 MG/2 ML VIAL IV PUSH (15:04)
[2021-06-25] MEDS: diphenhydrAMINE HCl INJ 50 MG/ML VIAL 25 MG IV PUSH (15:04)
[2021-06-25 15:18] LABS: Add Urine Microscopic? YES; Appearance Urine Clear (Clear); Bacteria Urine Trace /hpf; Bilirubin Urine Negative (Negative); Calcium Oxalate Crystals Urine Present /hpf; Color Urine Amber (Yellow); Glucose Urine UA Negative (Negative); Ketones Urine Trace mg/dL (Negative); Leukocyte Esterase Ur Negative LEU/UL (Negative); Mucus Urine Heavy /lpf; Nitrate Urine Negative (Negative); Protein Urine 1+ mg/dL (Negative); Specific Grav Ur 1.026 (1.001-1.035); Squamous Epithelial Cell Urine Rare /hpf (Few); Urobilinogen Urine Negative mg/dL (<2.0)
[2021-06-25 15:20] LABS: Blood Urine Negative (Negative)
== END 2021-06-25 17:00 | disposition home or self-care (01) ==
PROVIDERS: Physician Assistant; Emergency Provider Emergency Medicine; PCP Family Medicine
DX: C56.9 Malignant neoplasm of unspecified ovary (principal); R10.84 Generalized abdominal pain; J45.909 Unspecified asthma, uncomplicated; I10 Essential (primary) hypertension; E03.9 Hypothyroidism, unspecified; K21.9 Gastro-esophageal reflux disease without esophagitis; K58.1 Irritable bowel syndrome with constipation; M19.012 Primary osteoarthritis, left shoulder; M85.80 Other specified disorders of bone density and structure, unspecified site; F32.9 Major depressive disorder, single episode, unspecified; F41.9 Anxiety disorder, unspecified; Z96.652 Presence of left artificial knee joint; Z77.22 Contact with and (suspected) exposure to environmental tobacco smoke (acute) (chronic); R18.8 Other ascites
CPT/HCPCS: 36415; 74177; 76705; 80053; 81001; 83690; 85025; 85610; 85730; 87086; 96361; 96374; 96375; 96376; 99284; J1200; J2405; J3010; J7030; Q9967

== ENCOUNTER 2021-06-29 13:25 | Outpatient (CLI) | payer MEDICARE, OTHER, SELFPAY ==
--- NOTE | ~2021-06-29 | PE_ITS ---
EXAMINATION: PET skull to mid thigh DATE: 06/29/2021 15:04 INDICATION: Malignant neoplasm of the sigmoid colon. TECHNIQUE: Blood glucose level was 95 mg/dL. 12.042 mCi of 18-fluorodeoxyglucose (18-FDG) was adminis tered i.v. Low dose computed tomography (CT) images were acquired from the base of the brain to the p roximal thighs for attenuation correction and anatomic localization. Positron emission tomography (PE T) images were acquired in the same distribution beginning 65 minutes after injection. Images includi ng fused PET/CT images were reconstructed in axial, coronal, and sagittal planes. Automated exposure control technique was employed. The dose-length product was 495.32mGy-cm. COMPARISON: CT dated 06/25/2021 FINDINGS: Head/neck: There is symmetric increased activity in the oral cavity, lingual tonsils, parotid glands, laryngea l muscles and ocular muscles without CT correlate, likely physiologic. No pathologically enlarged cer vical lymphadenopathy or suspicious foci of increased FDG uptake in the visualized head or neck. Chest: Mild discoid atelectasis in the right middle and lower lobes. No suspicious pulmonary nodules, pneumo carmine, pulmonary edema or other pulmonary infiltrates. No pleural effusion. Heart size is normal. No pe ricardial effusion. Thoracic aorta is normal in caliber. No pathologically enlarged thoracic lymphade nopathy or suspicious foci of abnormal FDG uptake. Abdomen/pelvis/proximal thighs: Physiologic renal accumulation and excretion of FDG activity in the kidneys, bladder and along portio ns of ureters. Photopenic defect corresponding to a 3.4 cm exophytic cyst at the upper pole of the ri ght kidney. Normal degree and heterogenous pattern of increased uptake throughout the liver without r adiologic correlate or dominant FDG avid lesion. Cholecystectomy clips at the gallbladder fossa. The pancreas, spleen and bilateral adrenal glands are normal. Moderate amount of ascites scattered throug hout the abdomen and pelvis. There is uptake scattered along the bowels which is most prominent along the cecum where the maximal SUV measures 5.0. In this region there is fatty infiltration of the wall of the cecum with thickened soft tissue along the serosal surface suspicious for peritoneal carcinom atosis. Also concerning for peritoneal carcinomatosis is fine nodular stranding along the omentum in the anterior abdomen and pelvis with mild increased FDG activity measuring up to 1.5 in maximal SUV a long the anterior left abdominal wall. There is also mild increased FDG uptake with maximal SUV of 2. 9/or without the previously noted spiculated enhancing mass at the right adnexa. Additional mild incr eased FDG uptake with maximal SUV of 2.2 cm with small soft tissue deposits in the cul-de-sac along t he anterior margin of the rectosigmoid junction. Decompressed bladder is unremarkable. The uterus is not identified and has likely been surgically resected. No pathologically enlarged abdominal, pelvic or inguinal lymphadenopathy. Musculoskeletal: C4-C7 instrumented anterior spinal fusion with interbody bone graft cages and anterior plate and scre w fixation. Expected degree of mild associated FDG uptake. Additional mild likely degenerative increa sed FDG uptake associated with the articulation between the lateral masses of C2 and C3 with severe a ssociated osteoarthritis. Additional osteoarthritis related mild increased FDG uptake at the bilatera l acromioclavicular joints with associated osteoarthritic changes, left greater than right. Moderate thoracic and severe lumbar spondylosis. No other suspicious lytic, blastic or FDG avid bone lesions. IMPRESSION: 1. Moderate amount of ascites with mild to moderate increased FDG uptake associated with soft tissue deposits in the pelvis at the cul-de-sac and right adnexa, omental infiltration and cirrhosis with po ssible along the cecum also suspici
[2021-06-29 13:48] LABS: Glucose Point of Care 95 mg/dl (65-105)
== END 2021-06-29 13:26 | disposition home or self-care (01) ==
PROVIDERS: PCP Family Medicine; Visit Provider Internal Medicine Hematology & Oncology
DX: Z03.89 Encounter for observation for other suspected diseases and conditions ruled out (principal); C18.7 Malignant neoplasm of sigmoid colon
CPT/HCPCS: 78815; A9552

== ENCOUNTER 2021-07-02 09:48 | Outpatient (CLI) | payer MEDICARE, OTHER, SELFPAY ==
--- NOTE | ~2021-07-02 | US_ITS ---
EXAMINATION: US paracentesis abd w/image DATE: 07/02/2021 10:46 INDICATION: Ascites. TECHNIQUE: The procedure and its risks and benefits were discussed with the patient. Potential risks discussed included bleeding and infection. The skin was prepped and draped in sterile fashion. 1% lid ocaine was used for local anesthesia. Under ultrasound guidance, a 5 Fr catheter with trochar was adv anced into the ascites in the right lower quadrant. Fluid was aspirated into vacuum bottles. The cath eter was removed, and a dressing was applied. There were no immediate complications. FINDINGS: Ultrasound images demonstrate ascites and the catheter within the fluid. IMPRESSION: 1. Successful ultrasound-guided paracentesis yielding 1400 mL of dark yellow fluid. Reviewed, dictated and finalized at location A. IMPRESSION: 1. Successful ultrasound-guided paracentesis yielding 1400 mL of dark yellow f luid.
== END 2021-07-02 09:49 | disposition home or self-care (01) ==
LOC: ANHIMG 09:51
PROVIDERS: PCP Family Medicine; Visit Provider Internal Medicine Hematology & Oncology
DX: C80.1 Malignant (primary) neoplasm, unspecified (principal); R18.0 Malignant ascites
CPT/HCPCS: 49083

== ENCOUNTER → 2021-10-23 02:02 | Outpatient (CLI) | payer MEDICARE, OTHER, SELFPAY ==
[2021-10-24 16:24] LABS: SARS-CoV-2 RNA PCR Positive
== END ==
PROVIDERS: PCP Family Medicine; Visit Provider Family Medicine
DX: U07.1 COVID-19 (principal); J06.9 Acute upper respiratory infection, unspecified
CPT/HCPCS: C9803; U0003; U0005

== ENCOUNTER 2022-01-25 09:49 | Outpatient (CLI) | payer MEDICARE, OTHER, SELFPAY ==
--- NOTE | ~2022-01-25 | MM_ITS ---
EXAMINATION: MM screening [place] BI w ashleigh HISTORY: Screening mammogram TECHNIQUE: Craniocaudal and mediolateral oblique 3-D tomosynthesis images were obtained and synthetic 2-D images were generated. CAD analysis was submitted and interpreted. COMPARISON: 01/14/2001 bilateral diagnostic mammogram 01/14/2021 Limited left breast ultrasound BREAST PARENCHYMAL COMPOSITION: There are scattered areas of fibroglandular density. FINDINGS: There is no evidence of suspicious mass, calcification, or architectural distortion to sugg est malignancy in either breast. There has been no suspicious interval change. IMPRESSION: 1. No mammographic evidence of malignancy. 2. Recommend routine screening mammography in one year. BI-RADS Category 1: Negative Reviewed, dictated and finalized at location A.
== END 2022-01-25 09:50 | disposition home or self-care (01) ==
LOC: ANHIMG 09:51
PROVIDERS: PCP Family Medicine; Visit Provider Family Medicine
DX: Z12.31 Encounter for screening mammogram for malignant neoplasm of breast (principal)
CPT/HCPCS: 77063; 77067

== ENCOUNTER 2022-03-15 08:59 | Outpatient (CLI) | payer MEDICARE, OTHER, SELFPAY ==
[2022-03-15 09:31] LABS: Basophils Absolute Auto 0.1 K/mm3 (0.0-0.1); Basophils Percent Auto 0.6 % (0.2-1.2); Eosinophils Absolute Auto 0.1 K/mm3 (0-0.3); Eosinophils Percent Auto 0.6 % (0-4.4); Hematocrit 31.3 % (37.0-47.0); Hemoglobin 9.9 g/dL (12.0-15.0); Immature Granulocyte Absolute 0.17 K/mm3 (0.00-0.031); Immature Granulocyte Percent A 1.7 % (0-0.5); Lymphocytes Absolute Auto 2.29 K/mm3 (0.9-3.2); Lymphocytes Percent Auto 22.3 % (18.3-44.2); Mean Corpuscular HGB Conc 31.6 g/dl (32-36); Mean Corpuscular Hemoglobin 32.9 pg (26-34); Mean Platelet Volume 8.7 fl (7.4-10.4); Monocytes Absolute Auto 0.6 K/mm3 (0.1-0.6); Monocytes Percent Auto 5.4 % (2.6-8.5); Neutrophils Absolute Auto 7.1 K/mm3 (1.3-6.7); Neutrophils Percent Auto 69.4 % (45.5-73.1); Platelet Count Result 168 k/mm3 (150-375); Red Blood Count 3.01 M/mm3 (4.2-5.4); Red Cell Distribution Width 19.4 % (11.5-14.5); White Blood Count 10.3 K/mm3 (4.5-10.0)
[2022-03-15 09:40] LABS: Alanine Aminotransferase 18 U/L (6-35); Albumin Level 3.9 g/dL (3.5-5.1); Alkaline Phosphatase 119 U/L (38-126); Anion Gap 6 mmol/L (8-16); Aspartate Amino Transferase 27 U/L (14-36); Bilirubin,Total < 0.1 mg/dL (0.2-1.3); Blood Urea Nitrogen 13 mg/dL (7-17); Calcium 8.5 mg/dL (8.4-10.2); Carbon Dioxide 25 mmol/L (22-30); Chloride 109 mmol/L (98-107); Cholesterol 116 mg/dL (0-200); Estimated Glomerular Filt Rate > 60; Glucose 120 mg/dL (65-110); HDL Direct 50 mg/dL; Potassium 3.9 mmol/L (3.4-5.0); Sodium 140 mmol/L (137-145); Triglycerides 276 mg/dL (<150)
[2022-03-15 09:51] LABS: LDL Cholesterol Direct 33 mg/dL
[2022-03-15 10:15] LABS: Vitamin D 25 Hydroxy 46.8 ng/mL
[2022-03-15 15:50] LABS: Vitamin B12 > 1000.0 pg/mL (239-931)
== END 2022-03-15 09:00 | disposition home or self-care (01) ==
LOC: ANHLAB 09:04
PROVIDERS: PCP Family Medicine; Visit Provider Family Medicine
DX: C56.9 Malignant neoplasm of unspecified ovary (principal); F41.9 Anxiety disorder, unspecified; I10 Essential (primary) hypertension; Z13.220 Encounter for screening for lipoid disorders; Z79.899 Other long term (current) drug therapy; E03.9 Hypothyroidism, unspecified; F32.9 Major depressive disorder, single episode, unspecified; E55.9 Vitamin D deficiency, unspecified; E53.9 Vitamin B deficiency, unspecified
CPT/HCPCS: 36415; 80053; 80061; 82306; 82607; 84443; 85025

== ENCOUNTER 2022-06-19 09:30 | Emergency (ER) | payer MEDICARE, OTHER, SELFPAY ==
--- NOTE | ~2022-06-19 | US_ITS ---
EXAMINATION: US venous doppler [facility] DATE: 06/19/2022 11:08 INDICATION: Left lower limb pain. TECHNIQUE: Grayscale ultrasound images without and with compression and Doppler ultrasound images of the left lower extremity veins were obtained. COMPARISON: Ultrasound 06/16/2021 FINDINGS: The visualized portions of left common femoral vein, profunda (deep) femoral vein, femoral vein, popl iteal vein, peroneal veins, posterior tibial veins, and greater saphenous vein outflow are patent. IMPRESSION: 1. No deep venous thrombosis. Reviewed, dictated and finalized at location A.
--- NOTE | ~2022-06-19 | XR_ITS ---
EXAMINATION: XR lumbar spine min 4V DATE: 06/19/2022 12:04 INDICATION: Low back pain radiating down the left lower extremity. TECHNIQUE: 5 views of lumbar spine were obtained. COMPARISON: CT abdomen and pelvis 06/25/2021 FINDINGS: There is 14 degrees levoscoliosis of thoracolumbar spine. There is 5 mm retrolisthesis of L 2 on L3 and 3 mm anterolisthesis of L4 on L5. Vertebral body heights are normal. There is severely de creased disc height from L1-L2 through L5-S1 with endplate remodeling. There is multilevel severe fac et joint osteoarthritis. There are surgical clips overlying the abdomen and pelvis. Bowel staple line s are noted. IMPRESSION: 1. Severe lumbar spondylosis. 2. Thoracolumbar levoscoliosis. Reviewed, dictated and finalized at location A.
--- NOTE | ~2022-06-19 | XR_ITS ---
EXAMINATION: XR hip LT min 3V w AP pelvis DATE: 06/19/2022 10:46 INDICATION: Left hip pain. TECHNIQUE: An anteroposterior view of the pelvis and 3 views of left hip were obtained. COMPARISON: Pelvis and right hip radiographs 02/25/2021, CT abdomen and pelvis 06/25/2021 FINDINGS: There is thoracolumbar levoscoliosis and severe spondylosis. No fracture. There is a benign bone island in left ilium. There is mild osteoarthritis of the hips. Osteitis pubis is noted. There are surgical clips overlying left pelvis. Surgical clips in the right upper quadrant are likely from cholecystectomy. IMPRESSION: 1. Mild osteoarthritis of the hips. Reviewed, dictated and finalized at location A.
--- NOTE | ~2022-06-19 | XR_ITS ---
EXAMINATION: XR knee LT min 4V DATE: 06/19/2022 10:46 INDICATION: Left knee pain. TECHNIQUE: 4 views of left knee were obtained. COMPARISON: Left knee radiographs 03/29/2021 FINDINGS: There is a total left knee arthroplasty in near-anatomic alignment with patellar resurfacin g. No fracture. No periprosthetic lucency to suggest loosening or infection. No knee joint effusion. IMPRESSION: 1. Total left knee arthroplasty in near-anatomic alignment. Reviewed, dictated and finalized at location A.
[2022-06-19 09:52] VITALS: BP 150/65; PULSE 88; RESP 16; TEMP 36.1; O2SAT 98
--- NOTE | 2022-06-19 10:55 | ED.EXTPRO ---
HPI - Extremity Problem General Chief complaint: Extremity Problem,Nontraumatic Stated complaint: left leg pain Time Seen by Provider: 06/19/22 09:55 Source: patient Mode of arrival: ambulatory Limitations: no limitations History of Present Illness HPI Narrative: Patient is a 76-year-old female with Hx of osteoarthritis who presents to the ED with report of left knee pain. Patient reports a previous left knee replacement in 2013 performed at an outside hospital. Over the last few months, she has had increasing pain in her left knee. She has not been in to see her PCP or report specialist. Reports worsening pain over last 2 days, prompting presentation. Reports pain is now traveling into left hip and L lower back from trying to compensate while walking. She does also have history of sciatica. Tried taking hydrocodone, Tylenol at home. Denies any recent falls/injury. No significant swelling/redness/warmth of knee or leg. Related Data Home Medications Medication Instructions Recorded Confirmed albuterol sulfate 90 mcg/actuation 1 puff inhalation Q4H PRN Dyspnea 12/17/19 04/05/22 aerosol inhaler (ProAir HFA) bacillus coagulans-inulin 1 1 cap PO DAILY 12/17/19 04/05/22 billion cell-250 mg capsule (Probiotic Formula (inulin)) multivitamin,tx-minerals (Vitamins 1 tablet PO DAILY 12/17/19 04/05/22 and Minerals tablet) vitamin B complex 1 cap PO DAILY 12/17/19 04/05/22 calcium 600 mg capsule 600 mg PO DAILY 02/25/21 04/05/22 fluticasone propionate 50 1 spray intranasal DAILY PRN 02/25/21 04/05/22 mcg/actuation nasal Congestion spray,suspension (Flonase Allergy Relief) apixaban 5 mg tablet 5 mg PO BID 01/05/22 04/05/22 magnesium amino acid chelate 100 100 mg PO DAILY 04/05/22 04/05/22 mg tablet niraparib 100 mg capsule 100 mg PO DAILY 04/05/22 04/05/22 Allergies Allergy/AdvReac Type Severity Reaction Status Date / Time tramadol [From Ultram] Allergy Severe SEVERE Verified 06/19/22 10:24 RESP DEPRESSION codeine AdvReac Severe hallucinati Verified 06/19/22 10:24 ons propoxyphene [From Darvon] AdvReac Severe vomiting Verified 06/19/22 10:24 Review of Systems Review of Systems: CONSTITUTIONAL: Denies fever, chills, or sweats. CARDIOVASCULAR: Denies chest pain, palpitations, or edema. RESPIRATORY: Denies cough or dyspnea. SKIN: Denies redness, warmth, swelling of leg or knee. MUSCULOSKELETAL: Reports left knee pain, left hip pain, left lower back pain. NEUROLOGIC: Denies tingling, numbness, or weakness. All systems reviewed & are unremarkable except as noted in HPI and below PMFSH Past Medical History Medical History Abdominal ascites Anxiety disorder, unspecified Arthritis of left acromioclavicular joint Asthma Chronic neck and back pain Colon stricture Congestion of nasal sinus Constipation Depression Essential (primary) hypertension GERD (gastroesophageal reflux disease) History of adverse reaction to anesthesia Hypokalemia Hypothyroidism (acquired) IBS (irritable bowel syndrome) Irritable bowel syndrome with predominant constipation Left knee pain Osteoarthritis Osteopenia Osteoporosis Pelvic mass Seasonal allergies Wears glasses Surgical History Surgical History History of appendectomy 1972 History of arthroplasty of finger 11/2020 - Right thumb Carpometacarpal joint History of back surgery (~10/16/92) History of bunionectomy of both great toes 2009 History of cervical spinal surgery (~1993) History of colostomy 06/2021 History of colostomy reversal History of foot surgery 11/2020 - left foot hardware removal and correction of bunion History of hand surgery left hand - 2015 Carpectomy History of laparoscopic cholecystectomy 1993 History of left knee replacement 2018 History of resection of small bowel 1972 - due to Silvino's diverticul
--- NOTE | 2022-06-19 10:59 | PC.NURSE ---
Pt to U/S at this time.
[2022-06-19 11:05] VITALS: BP 140/70; PULSE 86; RESP 12; O2SAT 99
[2022-06-19 11:15] VITALS: BP 120/66; PULSE 82; O2SAT 99
[2022-06-19 11:30] VITALS: BP 135/69; PULSE 86; O2SAT 99
[2022-06-19] MEDS: methylPREDNISolone SOD SUCC 125 MG VIAL IM (12:59)
[2022-06-19] MEDS: KETOROLAC 30 MG/ML VIAL (*BKC) IM (12:59)
[2022-06-19 14:04] VITALS: BP 137/65; PULSE 80; RESP 15; O2SAT 100
== END 2022-06-19 14:05 | disposition home or self-care (01) ==
PROVIDERS: Emergency Provider Emergency Medicine; PCP Family Medicine
DX: M25.562 Pain in left knee (principal); M25.552 Pain in left hip; M54.42 Lumbago with sciatica, left side; J45.909 Unspecified asthma, uncomplicated; I10 Essential (primary) hypertension; E03.9 Hypothyroidism, unspecified; K21.9 Gastro-esophageal reflux disease without esophagitis; K58.1 Irritable bowel syndrome with constipation; M19.012 Primary osteoarthritis, left shoulder; M85.80 Other specified disorders of bone density and structure, unspecified site; M81.0 Age-related osteoporosis without current pathological fracture; M16.0 Bilateral primary osteoarthritis of hip; Z96.652 Presence of left artificial knee joint; Z77.22 Contact with and (suspected) exposure to environmental tobacco smoke (acute) (chronic); M79.605 Pain in left leg; M47.816 Spondylosis without myelopathy or radiculopathy, lumbar region; Z85.43 Personal history of malignant neoplasm of ovary
CPT/HCPCS: 72110; 73502; 73564; 93971; 96372; 99284; J1885; J2930

== ENCOUNTER 2022-07-27 12:30 | Outpatient (RCR) | payer MEDICARE, OTHER, SELFPAY ==
--- NOTE | 2022-06-29 15:01 | PTOPEVAL1 ---
Assessment and note entered by Win Villa, PT, DPT Evaluation Information Assessment Status Evaluation Diagnosis low back pain Subjective Information Pt states she has a history of leg cramps but these have increased since being on chemo. She states she had a bad leg cramp recently that felt like when she had sciatic nerve irritation a long time ago. She states she has a lumbar scoliosis and has previously had her lumbar vertebra hollowed out. Pt states her pain started with knee pain, than hip pain, and is now in her spine , this was attributed to her spine. Reported Pain Level Pain Score 0: Self Report Assessment PT Clinical Summary Florecita presents to therapy today for her initial evaluation with a diagnosis of low back pain. Today she demonstrates piriformis tightness, tenderness to palpation in her L piriformis, and a positive slump test. She also demonstrates decreased mobility throughout her lumbar spinal with central PAs. The demonstrates intermittent cramping with position changes throughout evaluation this date. She demonstrates good functional strength with some weakness in her hips dash. Skilled physical therapy services are indicated to address the deficits noted above, to manage pain, and to return to baseline function. Plan of Care Interventions Electrical Stimulation,Manual Therapy,Neuro Re- education,Patient/Caregiver Educati,Therapeutic Activities,Therapeutic Exercise PT Services Indicated Yes Treatment Frequency and 1x/wk for 4 wks Duration These treatments will address the objective and functional deficits as defined above. The patient will be advanced safely and appropriately in order for the patient to progress towards his/her prior level of function. Additional exercises will be introduced and as well as a comprehensive home exercise program upon discharge, if needed, ?to ensure carryover of functional gains achieved in the clinic. This treatment plan has been reviewed and agreement upon by the patient.
--- NOTE | 2022-07-27 13:20 | PTOPDC ---
Assessment and note entered by Win Villa, PT, DPT Evaluation Information Assessment Status Discharge Diagnosis low back pain Subjective Information Pt states her back pain has improved a lot. She states she still has leg cramps at night. She also reports improvements with her knee and back pain. She reports 4/10 back pain today but thats this could be from her stomach pain. Reported Pain Level Pain Score 4: Self Report Assessment PT Clinical Summary Florecita presents to therapy today for her progress report following 4 visits of therapy to treat her low back pain. Demonstrates reports improvements in her strength and ease of motion. She continues to demonstrate tenderness to palpation in her piriformis muscle bilaterally. She was instructed in self soft tissue mobilization this date. Pt reports good compliance with her HEP and has progressed well towards all of her therapy goals. Pt reports having to start chemo treatments again and would like to be done with therapy to focus on those. Therapist is agreeable with this POC. Plan of Care PT Services Indicated No Treatment Frequency and to be discharged Duration
== END 2022-08-03 09:08 | disposition home or self-care (01) ==
LOC: ANHGOSHPT 12:30
PROVIDERS: PCP Family Medicine; Visit Provider Nurse Practitioner Family
DX: M54.50 Low back pain, unspecified (principal)
CPT/HCPCS: 97110; 97112; 97140; 97161

== ENCOUNTER 2022-08-20 12:10 | Outpatient (CLI) | payer MEDICARE, OTHER, SELFPAY ==
--- NOTE | ~2022-08-20 | MR_ITS ---
EXAMINATION: MR lumbar spine wo con DATE: 08/20/2022 12:49 INDICATION: Lumbar radiculopathy TECHNIQUE: Magnetic resonance imaging (MRI) of the lumbar spine was performed without intravenous con trast. Sequences included sagittal T2-weighted FSE, sagittal T2-weighted FS FSE, sagittal T1-weighted FSE, and axial T2-weighted FSE. COMPARISON: None FINDINGS: Mild S-shaped curvature of the lumbar and lower thoracic spine with 8 degrees dextrocurvature between L2 and S1 and 12 degree levocurvature between T11 and L2. 3-4 mm retrolisthesis L2 on L3, 3 mm anter olisthesis L4 on L5 and one-2 mm retrolisthesis L5 on S1. Chronic mild likely physiologic anterior we dging at T12 and L1. There are small Schmorl's nodes lung endplates of several levels of the lumbar a nd lower thoracic spine. Severe disc height loss at L1-L2, L2-L3 and L5-S1. Moderate to severe right- sided predominant disc height loss at L4-L5. Moderate disc height loss at T11-T12 and at the right si de of T12-L1. Mild disc height loss at T12-L1 and L2-L3. Degenerative endplate changes with mild fibr ovascular degenerative endplate changes at a few of the regions of more severe disc space narrowing. Marrow signal is otherwise normal. The conus medullaris terminates at L2-L3. There is normal signal i n the caudal spinal cord. A couple T2 hyperintense right renal cysts the larger measuring 2.2 cm. Par avertebral soft tissues are unremarkable. The following disc levels are specifically discussed: L1-L2: Diffuse disc bulge with annular fissure. There is hypertrophy of the ligamentum flavum. There is severe bilateral facet joint osteoarthritis. There is moderate right and mild to moderate left fariha ral foraminal stenosis. There is moderate central canal stenosis. L2-L3: The disc does not extend beyond the more posterior endplate margin of L2. There is mild hypert rophy of the ligamentum flavum. There is mild to moderate bilateral facet joint osteoarthritis. There is right and mild to moderate left neural foraminal stenosis. There is mild central canal stenosis. L3-L4: Disc is bulging with annular fissure. There is mild right and severe left facet joint osteoart hritis. Right-sided hemilaminotomies with partial facetectomy on the right and with resection of the right-sided ligamentum flavum. There is moderate left and mild to moderate right neural foraminal cinthya nosis. There is mild central canal stenosis. L4-L5: Disc is bulging with annular fissure. There is severe bilateral facet joint osteoarthritis. Th ere is right and moderate to severe left neural foraminal stenosis. Likely additional right sided hem ilaminotomy with resection of the right side of the ligamentum flavum. There is mild central canal st enosis. There is asymmetric moderate stenosis of the left lateral recess. L5-S1: The disc does not extend beyond the more posterior margin of the inferior endplate of L5. Ther e is mild hypertrophy of the ligamentum flavum. There is severe right and moderate to severe left fac et joint osteoarthritis. There is moderate bilateral neural foraminal stenosis. There is mild central canal stenosis along with mild narrowing of the left and right lateral recesses. IMPRESSION: 1. Mild S-shaped curvature of the lumbar and lower thoracic spine with severe spondylosis Reviewed, dictated and finalized at location A. CIATE PROJECT MANAGER IMPRESSION: 1. Mild S-shaped curvature of the lumbar and lower thoracic spine with severe s pondylosis
== END 2022-08-20 12:11 | disposition home or self-care (01) ==
PROVIDERS: PCP Family Medicine; Visit Provider Nurse Practitioner Family
DX: M47.26 Other spondylosis with radiculopathy, lumbar region (principal)
CPT/HCPCS: 72148

== ENCOUNTER 2022-08-22 07:07 | Inpatient (IN) | payer MEDICARE, OTHER, SELFPAY ==
[2022-08-22] VITALS (20 sets, daily range): BP systolic 104–124; BP diastolic 51–73; PULSE 85–102; RESP 11–21; TEMP 36.5–36.6; O2SAT 95–100
--- NOTE | ~2022-08-22 | XR_ITS ---
EXAMINATION: XR abdomen obstructive series DATE: 08/24/2022 07:30 INDICATION: Small bowel obstruction TECHNIQUE: Frontal supine and upright views of the abdomen were obtained. COMPARISON: None. FINDINGS: Nasogastric tube tip in the body of the stomach. Right internal jugular central venous port catheter with distal tip at the cephalad superior vena cava. Linear discoid atelectasis/scarring at the bilate ral lung bases. Tiny bilateral pleural effusions. No pulmonary edema or pneumothorax. Cardiomediastin al silhouette is normal. No free intraperitoneal gas. Large amount stool in the proximal colon. There are few anastomotic sutu re lines in the pelvis and left abdomen. No dilated gas-filled small bowel to suggest obstruction. Ch olecystectomy clips in right upper quadrant. Additional surgical clips the left hemipelvis. Moderate lower thoracic and moderate to severe lumbar spondylosis. Sclerotic likely bone island at the left in nominate bone. IMPRESSION: 1. Large amount of stool in the proximal colon which could be seen with constipation. No free intrape ritoneal gas or dilated gas-filled loops of bowel to suggest obstruction. 2. Very small bilateral pleural effusions. Reviewed, dictated and finalized at location A. PING AND RECEIVING ASSISTANT IMPRESSION: 1. Large amount of stool in the proximal colon which could be seen with constip ation. No free intraperitoneal gas or dilated gas-filled loops of bowel to sugg est obstruction. 2. Very small bilateral pleural effusions.
--- NOTE | ~2022-08-22 | XR_ITS ---
EXAMINATION: XR sm bowel follow through WS DATE: 08/24/2022 14:23 INDICATION: Small bowel obstruction. TECHNIQUE: Oral contrast was administered, and a time course of radiographs of the abdomen was obtain ed. Fluoroscopy of the small bowel was not performed. Fluoroscopy exposure time was 0 minutes. The to tin number of images was 4. COMPARISON: CT abdomen and pelvis 08/22/2022 FINDINGS: The nasogastric tube tip is in the stomach. Surgical clips in the right upper quadrant are likely fro m cholecystectomy. There are multiple dilated loops of small bowel. Transit time from the stomach to proximal colon was approximately 2 hours and 45 minutes. There is a right chest port with tip in supe rior vena cava. IMPRESSION: 1. Dilated small bowel, consistent with adynamic ileus versus partial small bowel obstruction. Reviewed, dictated and finalized at location A. H PRESS FEEDER IMPRESSION: 1. Dilated small bowel, consistent with adynamic ileus versus partial small bow el obstruction.
--- NOTE | ~2022-08-22 | XR_ITS ---
EXAMINATION: XR abdomen obstructive series DATE: 08/25/2022 06:13 INDICATION: Ileus TECHNIQUE: Frontal supine and upright views of the abdomen were obtained. COMPARISON: Small bowel follow-through dated 09/03/2022 FINDINGS: Nasogastric tube tip in the body of the stomach with proximal side-port near the level of the gastroe sophageal junction. Cholecystectomy clips in right upper quadrant. Additional surgical clips in the l eft hemipelvis. Although contrast material scattered throughout the normal caliber colon extending to the rectum. No dilated loops of gas-filled small bowel to suggest obstruction. No free intraperitone al gas. Airspace opacities in the right mid to lower and left lower lung zones. IMPRESSION: 1. No free intraperitoneal gas or dilated gas-filled loops of bowel to suggest obstruction. 2. Nasogastric tube tip in the stomach with proximal side-port at the level of the gastroesophageal j unction. Consider advancement by 5 cm. Reviewed, dictated and finalized at location A. REPAIRER IMPRESSION: 1. No free intraperitoneal gas or dilated gas-filled loops of bowel to suggest obstruction. 2. Nasogastric tube tip in the stomach with proximal side-port at the level of the gastroesophageal junction. Consider advancement by 5 cm.
--- NOTE | ~2022-08-22 | XR_ITS ---
EXAMINATION: XR abdomen NG/feed tube rechec DATE: 08/24/2022 10:56 INDICATION: Nasogastric tube advancement. TECHNIQUE: A supine view of the abdomen on 2 radiographs was obtained. COMPARISON: Abdomen radiograph at 10:06 AM FINDINGS: There are no dilated loops of small bowel. There is a large volume of stool in the colon. S urgical clips in the right upper quadrant are likely from cholecystectomy. Bowel staple lines are not ed. There are surgical clips in left pelvis. The nasogastric tube tip is in the stomach with proximal side port in the distal esophagus. There is a right internal jugular port with tip in superior vena cava. There are changes of anterior fusion procedure in cervical spine. IMPRESSION: 1. Nasogastric tube tip in the stomach with proximal side port in the distal esophagus. Advancement 5 cm is recommended. Reviewed, dictated and finalized at location A. WORKER IMPRESSION: 1. Nasogastric tube tip in the stomach with proximal side port in the distal es ophagus. Advancement 5 cm is recommended.
--- NOTE | ~2022-08-22 | XR_ITS ---
EXAMINATION: XR abdomen NG/feed tube insert DATE: 08/24/2022 11:11 INDICATION: Nasogastric tube placement. TECHNIQUE: A supine view of the abdomen was obtained. COMPARISON: Abdomen radiograph at 10:40 AM FINDINGS: There is a large volume of stool in the colon. There are no dilated loops of small bowel. B owel staple lines are noted. The nasogastric tube tip is in the stomach. Surgical clips in the right upper quadrant are likely from cholecystectomy. IMPRESSION: 1. Nasogastric tube tip in the stomach. Reviewed, dictated and finalized at location A. ICAL PROGRAM DIRECTOR
--- NOTE | ~2022-08-22 | XR_ITS ---
EXAMINATION: XR abdomen NG/feed tube insert INDICATION: Nasogastric tube insertion TECHNIQUE: Portable AP KUB-NG at 0046 hours COMPARISON: 08/24/2022 FINDINGS: The nasogastric tube is in the stomach. The proximal side-port near the gastroesophageal ju nction. Contrast from yesterday's small bowel series is seen in the large bowel. Cholecystectomy clip s are noted. IMPRESSION: 1. Nasogastric tube in the stomach with proximal side port near the gastroesophageal junction. Consid er advancing 3 to 4 cm. Reviewed, dictated and finalized at location B. S CONTRACTS ANALYST IMPRESSION: 1. Nasogastric tube in the stomach with proximal side port near the gastroesoph ageal junction. Consider advancing 3 to 4 cm.
--- NOTE | ~2022-08-22 | XR_ITS ---
EXAMINATION: XR abdomen NG/feed tube rechec DATE: 08/24/2022 10:09 INDICATION: Advanced nasogastric tube. TECHNIQUE: A supine view of the abdomen was obtained. COMPARISON: CT abdomen and pelvis 08/22/2022 FINDINGS: There are no dilated loops of small bowel. There is a large volume of stool in the colon. B owel staple lines are noted. The nasogastric tube tip is in the stomach with proximal side port in th e distal esophagus. Surgical clips in the right upper quadrant are likely from cholecystectomy. IMPRESSION: 1. Nasogastric tube tip in the stomach with proximal side port in the distal esophagus. Advancement 5 cm is recommended. Reviewed, dictated and finalized at location A. ERAGE OFFICE MANAGER IMPRESSION: 1. Nasogastric tube tip in the stomach with proximal side port in the distal es ophagus. Advancement 5 cm is recommended.
--- NOTE | ~2022-08-22 | XR_ITS ---
EXAMINATION: XR abdomen NG/feed tube insert DATE: 08/22/2022 09:23 INDICATION: Nasogastric tube placement. TECHNIQUE: An upright view of the abdomen was obtained. COMPARISON: CT abdomen and pelvis 08/22/2022 FINDINGS: The lower abdomen is excluded. There are multiple dilated loops of small bowel. The colon i s normal in caliber. Surgical clips in the right upper quadrant are likely from cholecystectomy. The nasogastric tube tip is in the stomach. IMPRESSION: 1. Nasogastric tube tip in the stomach. 2. Dilated small bowel, consistent with small bowel obstruction. Reviewed, dictated and finalized at location A. ATION AND TRAINING MANAGER
--- NOTE | ~2022-08-22 | XR_ITS ---
EXAMINATION: XR chest 1V portable DATE: 08/25/2022 06:13 INDICATION: Leukocytosis TECHNIQUE: frontal view of the chest was obtained. COMPARISON: None FINDINGS: Nasogastric tube with distal tip in the body of the stomach in proximal side port near the level of t he gastroesophageal junction. Right internal jugular central venous port catheter with distal tip at the cephalad superior vena cava. Mild airspace opacities in the right mid to lower and left lower lung zones. No pleural effusion or p neumothorax. The cardiomediastinal silhouette is within normal limits accounting for slight rightward rotation of the patient.. IMPRESSION: 1. Mild airspace opacities in the right mid to lower and left lower lung zones which could represent atelectasis, pneumonia, mild pulmonary edema or some combination thereof. 2. Nasogastric tube tip in stomach with proximal side-port near the level of the gastroesophageal aspen ction. Could consider advancement by an additional 5 cm. Reviewed, dictated and finalized at location A. LPN IMPRESSION: 1. Mild airspace opacities in the right mid to lower and left lower lung zones which could represent atelectasis, pneumonia, mild pulmonary edema or some comb ination thereof. 2. Nasogastric tube tip in stomach with proximal side-port near the level of th e gastroesophageal junction. Could consider advancement by an additional 5 cm.
--- NOTE | ~2022-08-22 | CT_ITS ---
EXAMINATION: CT abdomen pelvis w con DATE: 08/22/2022 08:25 INDICATION: Nausea and vomiting. Abdominal pain. TECHNIQUE: Computed tomography (CT) of the abdomen and pelvis was performed with 100 mL Omnipaque 350 intravenous contrast. Automated exposure control and iterative reconstruction technique were employe d. The dose-length product was 244.84 mGy-cm. COMPARISON: CT abdomen and pelvis 06/25/2021 FINDINGS: The visualized portions of lung bases demonstrate mild atelectasis. There is a small right pleural effusion. The heart size is normal. No pericardial effusion. The liver and spleen are normal. There are changes of cholecystectomy. The pancreas and adrenal glands are normal. There are cysts in the kidneys measuring up to 2.1 cm on the right. There is an anastomosis in the rectosigmoid. There is an anastomosis in the transverse colon. There are some dilated loops of small bowel. There is a tr ansition point in the lower abdomen at the midline. There is wall thickening of small bowel in right lower quadrant. There is a small volume of ascites. There are scattered small peritoneal implants. Th ere are no pathologically enlarged lymph nodes. There is severe lumbar spondylosis. IMPRESSION: 1. Small bowel obstruction with transition point in the lower abdomen at the midline. 2. Small volume of ascites with peritoneal carcinomatosis. 3. Small right pleural effusion. Reviewed, dictated and finalized at location A. L PRODUCTS II ASSEMBLER IMPRESSION: 1. Small bowel obstruction with transition point [facility] the [facility]. 2. Small volume of ascites with peritoneal carcinomatosis. 3. Small right pleural effusion.
--- NOTE | ~2022-08-22 | XR_ITS ---
EXAMINATION: XR abdomen obstructive series DATE: 08/23/2022 07:20 INDICATION: Small bowel obstruction. Vomiting. TECHNIQUE: Frontal supine and upright views of the abdomen were obtained. COMPARISON: Abdomen and pelvis radiographs and CT dated 08/22/2022 FINDINGS: Nasogastric tube tip in the stomach. No free intraperitoneal gas. Moderate amount of gas and stool sc attered throughout the colon. No definitive dilated loops of small bowel. Anastomotic suture line in the left abdomen. Cholecystectomy clips in right upper quadrant. Additional surgical clips in the lef t pelvis. Persistent excreted contrast in the bladder from recent contrast enhanced CT. Linear atelec tasis/scarring in the right lower lung zone. Right internal jugular central venous port catheter with distal tip in the midsuperior vena cava. Plate and screw fixation for lower cervical anterior spinal fusion. IMPRESSION: 1. Nonspecific bowel gas pattern with moderate amount of gas and stool throughout the colon and a fe w gas-filled but not frankly dilated loops of small bowel. Reviewed, dictated and finalized at location A. OR SOFTWARE QA ANALYST IMPRESSION: 1. Nonspecific bowel gas pattern with moderate amount of gas and stool through out the colon and a few gas-filled but not frankly dilated loops of small bowel .
--- NOTE | 2022-08-22 07:34 | ED.ABDPAIN ---
HPI - Abdominal Pain General Chief Complaint: Abdominal Pain Stated Complaint: ABD PAIN Time Seen by Provider: 08/22/22 07:13 Source: RN notes reviewed History of Present Illness HPI narrative: Patient presents emergency department from home for abdominal pain. Patient that she has been having nausea and vomiting for the past week states on her sheets anything she throws up she has been associate with abdominal pain described as cramping throughout the upper abdomen is progressively gotten worse. She states that the pain does not radiate. She denies any fevers or chills chest pain or shortness of breath she denies any diarrhea and states she has been constipated. Patient states she has a long history of constipation and states that she does have ovarian cancer states she is currently followed by oncology at [facility] and is currently on chemotherapy she states that she was in the emergency department at [facility] for similar abdominal pain approximately a week ago had been discharged home Related Data Home Medications Medication Instructions Recorded Confirmed albuterol sulfate 90 mcg/actuation 1 puff inhalation Q4H PRN Dyspnea 12/17/19 08/18/22 aerosol inhaler (ProAir HFA) bacillus coagulans-inulin 1 1 cap PO DAILY 12/17/19 08/18/22 billion cell-250 mg capsule (Probiotic Formula (inulin)) multivitamin,tx-minerals (Vitamins 1 tablet PO DAILY 12/17/19 08/18/22 and Minerals tablet) vitamin B complex 1 cap PO DAILY 12/17/19 08/18/22 calcium 600 mg capsule 600 mg PO DAILY 02/25/21 08/18/22 fluticasone propionate 50 1 spray intranasal DAILY PRN 02/25/21 08/18/22 mcg/actuation nasal Congestion spray,suspension (Flonase Allergy Relief) magnesium amino acid chelate 100 100 mg PO DAILY 04/05/22 08/18/22 mg tablet doxorubicin, peg-liposomal 2 mg/mL IV .[id number] 08/18/22 08/18/22 intravenous suspension (Doxil) gabapentin 100 mg capsule 300 mg PO QHS 08/18/22 08/18/22 linaclotide 145 mcg capsule 145 mcg PO DAILY 08/18/22 08/18/22 (Linzess) methocarbamol 500 mg tablet 500 mg PO TID 08/18/22 08/18/22 omeprazole 40 mg capsule,delayed 40 mg PO DAILY 08/18/22 08/18/22 release Allergies Allergy/AdvReac Type Severity Reaction Status Date / Time tramadol [From Ultram] Allergy Severe SEVERE Verified 08/22/22 10:56 RESP DEPRESSION propoxyphene [From Darvon] AdvReac Intermediate vomiting Verified 08/22/22 10:56 codeine AdvReac Mild hallucinati Verified 08/22/22 10:56 ons Review of Systems Review of Systems: Gen.: Denies fevers or chills ENT: Denies congestion Respiratory: Denies shortness of breath or cough CV: Denies chest pain or palpitations GI: See HPI denies burning, urgency, frequency or hematuria Musculoskeletal: Denies back pain or muscle pain Neuro: Denies numbness, tingling, weakness or focal weakness Skin: Denies rash Except as documented, all other systems reviewed and negative PMF Past Medical History Medical History Abdominal ascites Anxiety disorder, unspecified Arthritis of left acromioclavicular joint Asthma Chronic neck and back pain Colon stricture Congestion of nasal sinus Constipation Depression Essential (primary) hypertension GERD (gastroesophageal reflux disease) History of adverse reaction to anesthesia Hypokalemia Hypothyroidism (acquired) IBS (irritable bowel syndrome) Irritable bowel syndrome with predominant constipation Left knee pain Lower back pain Osteoarthritis Osteopenia Osteoporosis Pelvic mass 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
[2022-08-22 07:53] LABS: Basophils Absolute Auto 0.1 K/mm3 (0.0-0.1); Basophils Percent Auto 0.5 % (0.2-1.2); Eosinophils Absolute Auto 0.1 K/mm3 (0-0.3); Eosinophils Percent Auto 1.1 % (0-4.4); Hematocrit 36.5 % (37.0-47.0); Hemoglobin 12.7 g/dL (12.0-15.0); Immature Granulocyte Absolute 0.03 K/mm3 (0.00-0.031); Immature Granulocyte Percent A 0.3 % (0-0.5); Lymphocytes Absolute Auto 1.79 K/mm3 (0.9-3.2); Lymphocytes Percent Auto 17.5 % (18.3-44.2); Mean Corpuscular HGB Conc 34.8 g/dl (32-36); Mean Corpuscular Hemoglobin 32.6 pg (26-34); Mean Corpuscular Volume 93.6 fl (80-100); Mean Platelet Volume 8.7 fl (7.4-10.4); Monocytes Absolute Auto 0.8 K/mm3 (0.1-0.6); Neutrophils Absolute Auto 7.4 K/mm3 (1.3-6.7); Neutrophils Percent Auto 72.6 % (45.5-73.1); Platelet Count Result 323 k/mm3 (150-375); Red Cell Distribution Width 14.8 % (11.5-14.5); White Blood Count 10.2 K/mm3 (4.5-10.0)
[2022-08-22] MEDS: ONDANSETRON INJ 4 MG/2 ML VIAL IV PUSH ×3 (07:57→21:17)
[2022-08-22] MEDS: SODIUM CHLORIDE 0.9% IV 1,000 ML 999 ML IV CONT (07:58)
[2022-08-22 08:03] LABS: Appearance Urine Clear (Clear); Bilirubin Urine 1+ (Negative); Blood Urine Negative (Negative); Color Urine Yellow (Yellow); Glucose Urine UA Negative (Negative); Ketones Urine Trace mg/dL (Negative); Leukocyte Esterase Ur Negative LEU/UL (Negative); Nitrate Urine Negative (Negative); Protein Urine 1+ mg/dL (Negative)
[2022-08-22 08:04] LABS: Alanine Aminotransferase 21 U/L (6-35); Alkaline Phosphatase 94 U/L (38-126); Anion Gap 13 mmol/L (8-16); Aspartate Amino Transferase 32 U/L (14-36); Bilirubin,Total 0.7 mg/dL (0.2-1.3); Blood Urea Nitrogen 15 mg/dL (7-17); Calcium 8.8 mg/dL (8.4-10.2); Carbon Dioxide 27 mmol/L (22-30); Chloride 96 mmol/L (98-107); Estimated Glomerular Filt Rate > 60; Glucose 123 mg/dL (65-110); Lipase 55 U/L (23-300); Potassium 3.5 mmol/L (3.4-5.0); Sodium 136 mmol/L (137-145)
[2022-08-22 08:11] LABS: Mucus Urine Rare /lpf; RBC Urine 0-2 /hpf (0-2); Squamous Epithelial Cell Urine Occasional /hpf (Few)
[2022-08-22 08:12] LABS: Add Urine Microscopic? YES
[2022-08-22 08:51] LABS: SARS-CoV-2 RNA PCR Negative
[2022-08-22] MEDS: PANTOPRAZOLE SODIUM IV 40 MG VIAL IV PUSH (09:14)
[2022-08-22] MEDS: SODIUM CHLORIDE 0.9% IV 1,000 ML 80 ML IV CONT ×2 (09:51→22:31)
[2022-08-22] MEDS: MORPHINE SULFATE (*CRX) 2 MG/ML INJ IV PUSH ×3 (11:00→18:12)
--- NOTE | 2022-08-22 13:38 | PC.NURSE ---
This patient, Florecita Lane, was admitted to [facility] Surg Room 309-01 on 08/22/22 @ 1235. Patient/family oriented to hospital policies and general routines including ID bracelet, bed and alarms, visiting hours, pain management, procedures, bathroom and other care routines, personal items, smoking policy, room service/diet, and visiting hours. Information on how to activate the Rapid Response Team has been discussed. Patient/Family are encouraged to report perceived risks to care and to ask questions if they do not understand what they are told or what they should do.
--- NOTE | 2022-08-22 14:09 | PM.CNGS ---
Assessment and Plan Assessment and plan (1) Complete small bowel obstruction: Code(s): K56.601 - Complete intestinal obstruction, unspecified as to cause Status: Acute Assessment and Plan: CT scan reviewed and discussed with the patient in detail. There is evidence of a small bowel obstruction. She is also noted to have small volume ascites and peritoneal carcinomatosis. The CT also shows a large amount of stool throughout her colon consistent with constipation. The small bowel obstruction could be related to intra-abdominal adhesions or from metastases. She would be a very high risk surgical candidate given her metastatic disease with peritoneal carcinomatosis and previous major abdominal surgeries. We would initially recommend to try treating her with conservative management, including NG tube decompression, bowel rest, IV fluids, and analgesics. We will closely monitor her with serial abdominal exams and serial imaging. 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 Could be contributing to her more acute issues. May consider stimulating her from below. (4) Essential (primary) hypertension: Code(s): I10 - Essential (primary) hypertension Status: Acute (5) GERD (gastroesophageal reflux disease): Qualifiers: Esophagitis presence: without esophagitis Qualified Code(s): K21.9 - Gastro-esophageal reflux disease without esophagitis Code(s): K21.9 - Gastro-esophageal reflux disease without esophagitis Status: Acute (6) Hypothyroidism (acquired): Code(s): E03.9 - Hypothyroidism, unspecified Status: Acute (7) Immunosuppression due to drug therapy: Code(s): D84.821 - Immunodeficiency due to drugs; Z79.899 - Other long distance billing operator (current) drug therapy Status: Acute Assessment and Plan: Last received an infusion 6 days ago, which was her second infusion. Plan I have discussed the patient's case and plan of care with Dr. Johansen. Thank you for allowing us to see the patient in consultation and we will continue to follow along with you. History of Present Illness Consult details Consult date: 08/22/22 Reason for consult: other (Small-bowel obstruction) Narrative: This is a 76-year-old woman who is being treated for ovarian cancer, who presented to the emergency department early this morning with complaints of abdominal pain. She was diagnosed with metastatic ovarian cancer in June of 2021. She underwent a laparoscopic transverse loop colostomy in June and eventually had a tumor debulking surgery with omentectomy, sigmoidectomy, bilateral salpingo-oophorectomy, and colostomy takedown in November of 2021. She completed chemotherapy and was being monitored by her oncologist. She reportedly was told about 2 months ago that her cancer had returned after having labs drawn. She was started again on chemotherapy with Doxil every 4 weeks, and received her second infusion 6 days ago. Over the past month, she has been dealing with intermittent cramping abdominal pain, bloating, and constipation. She has had chronic issues with constipation nearly her entire life, but feels it has recently gotten worse. She currently takes lactulose daily and actually saw a environmental science instructor 4 weeks ago for her worsening constipation. She was started on Linzess and does not feel this has helped. Her abdominal pain and bloating occurs frequently to the point that she will stop eating for 1-2 days at a time and slowly advance her diet as her symptoms improve. This happens at least a few times per week. She does feel better after moving her jona
--- NOTE | 2022-08-22 18:44 | PC.NURSE ---
Patient received IVP Morphine in ER. Patient has allergy to tramadol and codeine. Patient stated she hasn't had adverse reaction to Morphine before. Patient then received another dose per order and verification. Clarified this with Pharmacy as well. Ordering provider aware. Patient has now received 3 doses.
--- NOTE | 2022-08-22 19:00 | PM.IMHP ---
H&P: HPI History of Present Illness Date/Time: 08/22/22 15:00 Chief Complaint: Abdominal pain. Narrative: This is a 76-year-old female currently undergoing chemotherapy for ovarian cancer with hypertension, hypothyroidism, GERD, and asthma who presented to the ED for evaluation of abdominal pain. She was diagnosed with metastatic ovarian cancer in June 2021 and she had several surgeries between June and November of this year including debulking surgery, partial colectomy with colostomy and subsequent takedown, and bilateral salpingo-oophorectomy. She completed chemotherapy and about 2 months ago she found out that the cancer had recurred and she was started again on chemotherapy. She seems to tolerate the chemotherapy quite well. Over the last month or so however she has had almost daily abdominal discomfort which is intermittent in ranges from mild bloating to aching to sharp and shooting pain. She reports longstanding issues with constipation though that has been worse the last few weeks and in fact she cannot remember the last time she had a decent bowel movement. The last couple of days her pain has been much worse and she is feeling very nauseated. Last night she used a Fleet with no relief in the and she can today evaluation. CT of the abdomen and pelvis showed a small-bowel obstruction with transition point in the lower mid abdomen, I small amount of ascites with peritoneal carcinomatosis, small right pleural effusion. NG tube has since been inserted and she has been admitted to the medical floor. At the time my evaluation she is having some gas discomfort in the abdomen which is new. IV morphine did help her pain somewhat but she continues to have discomfort. Review of Systems Review of Systems: Twelve systems were reviewed. No fever or sweats. She is always cold. Has chronic rhinorrhea. No sore throat or cough. She has had nausea but no vomiting. She has issues with cramping in her legs and hands and is trying to stay hydrated though she has not had much in the way of solid foods. No chest pain shortness a breath. No pleuritic pain or palpitations. Except as documented, all other systems were reviewed and are negative. 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 Seasonal allergies Surgical History Surgical History History of appendectomy 1972 History of arthroplasty of finger 11/2020 - Right thumb Carpometacarpal joint History of back surgery (~10/16/92) History of bunionectomy of both great toes 2009 History of cervical spinal surgery (~1993) History of colostomy 06/2021 History of colostomy reversal History of foot surgery 11/2020 - left foot hardware removal and correction of bunion History of hand surgery left hand - 2014 Carpectomy History of laparoscopic cholecystectomy 1992 History of left knee replacement 2018 History of major abdominal surgery November 2021 at [facility] - Tumor debulking surgery for metastatic ovarian cancer including colostomy takedown, sigmoidectomy, bilateral salpingo-oophorectomy, omentectomy. History of resection of small bowel 1971 - due to Meckel's diverticulum Status post left knee replacement Family History Family History Father , cancer not specified Malignant neoplasm of prostate Mother Alcoholic Grandparent Cancer Grandparent Arthritis S
--- NOTE | 2022-08-23 03:12 | PC.NURSE ---
Pt has NG tube in place. Pt resting in bed. Pt reports having abdominal pain. Pt was given morphine for pain. Pt ambulated to the bathroom independently. Pt has not other complaints at this time. Pt participated and contributed to plan of care for the shift. Will continue to monitor pt.
[2022-08-23 05:36] VITALS: BP 122/70; PULSE 92; RESP 20; TEMP 36.4; O2SAT 98
[2022-08-23 06:41] LABS: Basophils Absolute Auto 0.1 K/mm3 (0.0-0.1); Basophils Percent Auto 0.5 % (0.2-1.2); Eosinophils Absolute Auto 0.2 K/mm3 (0-0.3); Eosinophils Percent Auto 2.3 % (0-4.4); Hematocrit 33.4 % (37.0-47.0); Hemoglobin 11.1 g/dL (12.0-15.0); Immature Granulocyte Absolute 0.05 K/mm3 (0.00-0.031); Immature Granulocyte Percent A 0.5 % (0-0.5); Lymphocytes Absolute Auto 1.19 K/mm3 (0.9-3.2); Lymphocytes Percent Auto 12.6 % (18.3-44.2); Mean Corpuscular HGB Conc 33.2 g/dl (32-36); Mean Corpuscular Hemoglobin 33.1 pg (26-34); Mean Corpuscular Volume 99.7 fl (80-100); Mean Platelet Volume 8.9 fl (7.4-10.4); Monocytes Absolute Auto 0.5 K/mm3 (0.1-0.6); Monocytes Percent Auto 4.8 % (2.6-8.5); Neutrophils Absolute Auto 7.5 K/mm3 (1.3-6.7); Neutrophils Percent Auto 79.3 % (45.5-73.1); Platelet Count Result 233 k/mm3 (150-375); Red Blood Count 3.35 M/mm3 (4.2-5.4); Red Cell Distribution Width 14.7 % (11.5-14.5); White Blood Count 9.5 K/mm3 (4.5-10.0)
[2022-08-23 06:55] LABS: Alanine Aminotransferase 17 U/L (6-35); Alkaline Phosphatase 79 U/L (38-126); Anion Gap 6 mmol/L (8-16); Aspartate Amino Transferase 23 U/L (14-36); Bilirubin,Total 0.6 mg/dL (0.2-1.3); Blood Urea Nitrogen 9 mg/dL (7-17); Calcium 7.5 mg/dL (8.4-10.2); Carbon Dioxide 26 mmol/L (22-30); Chloride 102 mmol/L (98-107); Estimated Glomerular Filt Rate > 60; Glucose 95 mg/dL (65-110); Potassium 3.5 mmol/L (3.4-5.0); Sodium 134 mmol/L (137-145)
[2022-08-23] MEDS: LEVOTHYROXINE SODIUM INJ 100 MCG/5 ML VIAL 50 MCG IV PUSH (07:58)
[2022-08-23] MEDS: PANTOPRAZOLE SODIUM IV 40 MG VIAL IV PUSH (07:58)
[2022-08-23] MEDS: MORPHINE SULFATE (*CRX) 2 MG/ML INJ IV PUSH ×3 (08:06→21:43)
--- NOTE | 2022-08-23 08:16 | PM.IMPN ---
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: Code(s): C56.2 - Malignant neoplasm of left ovary; C80.0 - Disseminated malignant neoplasm, unspecified Status: Acute (3) Constipation: Code(s): K59.00 - Constipation, unspecified Status: Acute (4) Essential (primary) hypertension: Code(s): I10 - Essential (primary) hypertension Status: Acute (5) Asthma: Qualifiers: Asthma complication type: uncomplicated Asthma persistence: persistent Asthma severity: unspecified severity Qualified Code(s): J45.909 - Unspecified asthma, uncomplicated Code(s): J45.909 - Unspecified asthma, uncomplicated Status: Acute (6) Hypothyroidism (acquired): Code(s): E03.9 - Hypothyroidism, unspecified Status: Acute Plan The patient presented to the emergency department today for evaluation of worsening abdominal pain over the last month as well as constipation. CT scan shows evidence of small-bowel obstruction which may be related to adhesions or metastatic disease however a large amount of stool was also noted throughout the colon. She has been seen by surgery and they recommend conservative treatment for now including NG tube decompression and bowel rest. Analgesics and antiemetics are available as needed. She will need to be on a good bowel regimen on discharge. She is receiving chemotherapy today though not through her port as it was not working. Her labs were reviewed and they are reassuring. She will be cautiously hydrated with close monitoring of volume status. No acute issues with regards to her asthma. Her home medications will be held as she is NPO, continue inhalers. 08/23/22 abd very tender will f/u w surgery morphine IV leukocytosis resolving cont conservative therapy IVFs NGT NPO corrected Ca 8.3 supportive care Subjective Date/time seen: 08/23/22 08:16 pt complains of abd pain cramping in nature denies distension NGT tolerated Review of Systems Review of Systems: All systems reviewed & are unremarkable except as noted in HPI and below Exam Narrative: General: Mildly ill-appearing female supine in bed. HEENT: EOMI. Sclera anicteric. NG tube in the right naris draining opaque brown fluid. moist mucous membranes. Neck: Supple. Respiratory: Lungs are clear to auscultation bilaterally. Cardiovascular: Regular rate and rhythm with S1-S2. Gastrointestinal: Abdomen is TTP w guarding and hypoactive bowel sounds. rebound tenderness. Multiple surgical scars noted throughout the abdomen. Skin: Warm and dry. Extremities: No cyanosis or clubbing. Trace pretibial edema. Neurological: Alert. Cranial nerves 2-12 are grossly intact. No gross focal deficits to casual conversation. Psychiatric: Pleasant and cooperative with normal mood and affect. Judgment and insight intact. Objective Data Vital Signs Vital Signs: Vital Signs - 24 hr 08/22/22 08:23 08/22/22 08:51 08/22/22 09:00 Temperature Pulse Rate 94 98 102 H Respiratory Rate 21 H 19 Blood Pressure Pulse Oximetry 98 98 97 Oxygen Delivery 08/22/22 09:41 08/22/22 09:47 08/22/22 10:00 Temperature Pulse Rate 94 94 95 Respiratory Rate 11 L 14 12 Blood Pressure Pulse Oximetry 97 100 97 Oxygen Delivery 08/22/22 10:15 08/22/22 10:57 08/22/22 11:00 Temperature Pulse Rate 92 91 95 Respiratory Rate 15 18 17 Blood Pressure Pulse Oximetry 95 96 96 Oxygen Delivery 08/22/22 11:01 08/22/22 11:02 08/22/22 11:15 Temperature Pulse Rate 93 91 91 Respiratory Rate 14 14 16 Blood Pressure 124/60 Pulse Oximetry 98 98 96 Oxygen Delivery 08/22/22 11:16 08/22/22 11:43 08/22/22 14:00 Temperature 97.9 F Pulse Rate 89 87 85 Respir
[2022-08-23] MEDS: ONDANSETRON INJ 4 MG/2 ML VIAL IV PUSH ×2 (10:25→21:43)
--- NOTE | 2022-08-23 10:55 | PM.PNGS ---
Progress Note: A&P Assessment and Plan (1) Complete small bowel obstruction: Code(s): K56.601 - Complete intestinal obstruction, unspecified as to cause Status: Acute Assessment and Plan: Still having abdominal pain and nausea. No signs of bowel function as of yet. Obstructive series this morning looks better with gas and stool throughout the colon and no significantly dilated small bowel. 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 Johansen. Subjective Subjective Date/Time Seen: 08/23/22 10:55 Patient reports: still having pain, no flatus, no bowel movement, nausea and vomiting Interval history: Patient seen and examined. When entering the room, the nurses at the bedside and the patient is dry heaving into a basin. She reports still having abdominal pain across her entire abdomen. She does not feel this has improved at all since yesterday. She had 450 cc out of her NG tube overnight per the nurse. No flatus or BM. Review of Systems Review of Systems: All systems reviewed & are unremarkable except as noted in HPI and below Exam Const: General: no acute distress and alert Orientation/consciousness: patient oriented x3 GI: Inspection: distended GI Palp: Yes Soft to palpation, Yes Tenderness to palpation present (GI) (generalized tenderness throughout), Yes Guarding due to palpation present (GI) and No Rebound tenderness present Percussion: Yes normal to percussion Auscultation: absent bowel sounds Extrem: General: no edema Psych: Mental Status: mental status grossly normal Insight: Good insight present (Psych) Objective Data Vital Signs Vital Signs: Vital Signs - 24 hr 08/22/22 10:57 08/22/22 11:00 08/22/22 11:01 Temperature Pulse Rate 91 95 93 Respiratory Rate 18 17 14 Blood Pressure 124/60 Pulse Oximetry 96 96 98 Oxygen Delivery 08/22/22 11:02 08/22/22 11:15 08/22/22 11:16 Temperature Pulse Rate 91 91 89 Respiratory Rate 14 16 15 Blood Pressure 117/61 Pulse Oximetry 98 96 96 Oxygen Delivery 08/22/22 11:43 08/22/22 14:00 08/22/22 16:00 Temperature 97.9 F Pulse Rate 87 85 Respiratory Rate 16 20 Blood Pressure 109/53 L Pulse Oximetry 97 98 Oxygen Delivery Room Air 08/22/22 22:00 08/22/22 22:48 08/23/22 05:36 Temperature 97.7 F 97.5 F L Pulse Rate 85 92 Respiratory Rate 20 20 Blood Pressure 116/64 122/70 Pulse Oximetry 96 98 Oxygen Delivery Room Air Intake/Output Intake/Output: Intake & Output 08/21/22 08/21/22 08/22/22 08/23/22 00:59 23:59 23:59 23:59 Intake Total 2200 100 Output Total 50 Balance 2150 100 Meds/Results Medications: Active Medications Generic Name Dose Route Start Last Admin Trade Name Freq PRN Reason Stop Dose Admin Albuterol 1 puff 08/22/22 20:31 Albuterol Sulfate (*Sp) Aerosol 1 Puff INHALATION Q4H PRN Dyspnea Benzocaine 1 lozenge 08/23/22 04:14 Benzocaine/Menthol (*Bkc) 18 Ea Lozenge PO PRN PRN Sore Throat Fluticasone Propionate 1 spray 08/22/22 20:31 Fluticasone Propionate 0.05% Na Spr 16 Gm Btl (*Bkc) NASAL
[2022-08-23] MEDS: SODIUM CHLORIDE 0.9% IV 1,000 ML 80 ML IV CONT ×2 (11:17→23:59)
[2022-08-23] MEDS: BISACODYL 10 MG SUPPOSITORY RECTAL (13:11)
[2022-08-23 13:47] VITALS: BP 140/63; PULSE 92; RESP 20; TEMP 36.4; O2SAT 97
[2022-08-23] MEDS: MORPHINE SULFATE (*CRX) 4 MG/ML INJ IV PUSH (16:15)
[2022-08-23 22:00] VITALS: BP 132/53; PULSE 102; RESP 18; TEMP 36.6; O2SAT 96
--- NOTE | 2022-08-23 23:49 | PC.NURSE ---
Pt has been dry heaving today. Pt states that she is having more nausea and is unable to have a bm. Pt was given a suppository during day shift and was able to pass some gas during this shift. Pt states she is still have pain in her abdomen. Pt is participated and contributed in plan of care. Pt verbalizes no other needs at this time. Will continue to monitor pt.
[2022-08-24] MEDS: MORPHINE SULFATE (*CRX) 2 MG/ML INJ IV PUSH ×8 (01:06→23:56)
[2022-08-24] MEDS: ONDANSETRON INJ 4 MG/2 ML VIAL IV PUSH ×3 (03:06→18:36)
[2022-08-24] MEDS: LEVOTHYROXINE SODIUM INJ 100 MCG/5 ML VIAL 50 MCG IV PUSH (05:59)
[2022-08-24 06:00] VITALS: BP 135/55; PULSE 98; RESP 18; TEMP 36.9; O2SAT 97
[2022-08-24 06:28] LABS: Hematocrit 33.2 % (37.0-47.0); Hemoglobin 10.8 g/dL (12.0-15.0); Mean Corpuscular HGB Conc 32.5 g/dl (32-36); Mean Corpuscular Hemoglobin 32.7 pg (26-34); Mean Corpuscular Volume 100.6 fl (80-100); Mean Platelet Volume 8.7 fl (7.4-10.4); Platelet Count Result 232 k/mm3 (150-375); Red Cell Distribution Width 14.6 % (11.5-14.5); White Blood Count 13.1 K/mm3 (4.5-10.0)
[2022-08-24 06:36] LABS: Anion Gap 15 mmol/L (8-16); Blood Urea Nitrogen 8 mg/dL (7-17); Calcium 7.5 mg/dL (8.4-10.2); Carbon Dioxide 21 mmol/L (22-30); Chloride 102 mmol/L (98-107); Estimated Glomerular Filt Rate > 60; Glucose 71 mg/dL (65-110); Potassium 3.2 mmol/L (3.4-5.0); Sodium 138 mmol/L (137-145)
[2022-08-24 08:40] VITALS: O2SAT 90
[2022-08-24] MEDS: ENOXAPARIN 40 MG/0.4 ML SYRINGE SUB-Q (09:23)
[2022-08-24] MEDS: PANTOPRAZOLE SODIUM IV 40 MG VIAL IV PUSH (09:24)
[2022-08-24] MEDS: BENZOCAINE/MENTHOL (*BKC) 18 EA LOZENGE 1 LOZENGE PO (09:24)
[2022-08-24] MEDS: FLUTICASONE PROPIONATE 0.05% NA SPR 16 GM BTL (*BKC) 1 SPRAY NASAL (09:24)
--- NOTE | 2022-08-24 10:04 | PM.PNGS ---
Progress Note: A&P Assessment and Plan (1) Small bowel obstruction: Code(s): K56.609 - Unspecified intestinal obstruction, unspecified as to partial versus complete obstruction Status: Acute Assessment and Plan: I reviewed the obstructive series this morning. Small bowel does not appear to be dilated and stool noted throughout proximal colon. Will get a Gastrografin small-bowel follow-through today to assess for resolution of bowel obstruction. If obstruction persists, would recommend transferring to [facility] where her oncologist and scalehouse attendant/Onc surgeon are familiar with her. (2) Immunosuppression due to drug therapy: Code(s): D84.821 - Immunodeficiency due to drugs; Z79.899 - Other care home (current) drug therapy Status: Acute (3) Ovarian cancer: Code(s): C56.9 - Malignant neoplasm of unspecified ovary Status: Acute Subjective Subjective Date/Time Seen: 08/24/22 10:04 Interval history: passing flatus. Pain slightly improved. Exam GI: Inspection: non-distended GI Palp: Yes Soft to palpation and No Guarding due to palpation present (GI) Percussion: Yes normal to percussion Auscultation: Hypoactive bowel sounds present Objective Data Vital Signs Vital Signs: Vital Signs - 24 hr 08/23/22 13:47 08/23/22 22:00 08/23/22 21:43 Temperature 36.4 C L 36.6 C Pulse Rate 92 102 H Respiratory Rate 20 18 Blood Pressure 140/63 132/53 L Pulse Oximetry 97 96 Oxygen Delivery Room Air 08/24/22 06:00 08/24/22 08:40 Temperature 36.9 C Pulse Rate 98 Respiratory Rate 18 Blood Pressure 135/55 L Pulse Oximetry 97 90 Oxygen Delivery Room Air Intake/Output Intake/Output: Intake & Output 08/21/22 08/22/22 08/23/22 08/24/22 23:59 23:59 23:59 23:59 Intake Total 2200 2200 Output Total 50 1250 500 Balance 2150 950 -500 Meds/Results Medications: Active Medications Generic Name Dose Route Start Last Admin Trade Name Freq PRN Reason Stop Dose Admin Albuterol 1 puff 08/22/22 20:31 Albuterol Sulfate (*Sp) Aerosol 1 Puff INHALATION Q4H PRN Dyspnea Benzocaine 1 lozenge 08/23/22 04:14 08/24/22 09:24 Benzocaine/Menthol (*Bkc) 18 Ea Lozenge PO 1 lozenge PRN PRN Administration Sore Throat Enoxaparin Sodium 40 mg 08/24/22 09:00 08/24/22 09:23 Enoxaparin 40 Mg/0.4 Ml Syringe SUB-Q 40 mg DAILY FOREIGN Administration Fluticasone Propionate 1 spray 08/22/22 20:31 08/24/22 09:24 Fluticasone Propionate 0.05% Na Spr 16 Gm Btl (*Bkc) NASAL 1 spray DAILY PRN Administration Congestion Sodium Chloride 1,000 mls @ 80 mls/hr 08/22/22 08:55 08/23/22 23:59 Normal Saline Iv IV CONT 80 mls/hr .[id number] FOREIGN Administration Levothyroxine Sodium 50 mcg 08/23/22 06:30 08/24/22 05:59 Levothyroxine Sodium Inj 100 Mcg/5 Ml Vial IV PUSH 50 mcg DAILY@0630 FOREIGN Administration Miscellaneous Information 1 each 08/22/22 00:01 08/24/22 09:23 Clarify Advair--Should Not Be Used Prn, Its Not A Rescue Inhaler. Ok To Change To Schedul XX 09/21/22 00:00 Not Given CLARIFY FOREIGN Morphine Sulfate 2 mg 08/23/22 13:11 08/24/22 09:26 Morphine Sulfate (*Crx) 2 Mg/Ml Inj IV PUSH 2 mg Q2H PRN Administration Pain Rated 4-6 Morphine Sulfate 4 mg 08/23/22 13:10 08/23/22 16:15 Morphine Sulfate (*Crx) 4 Mg/Ml Inj IV PUSH 4 mg Q2H PRN Administration Pain Rated 7-10 Non-Formulary Medication 1 inhalation 08/22/22 20:31 Fluticasone Propion-Salmeterol [Advair Diskus] INHALATION Q12H PRN Shortness Of Breath Or Wheezing Ondansetron HCl 4 mg 08/22/22 08:54 08/24/22 03:06 Ondansetron Inj 4 Mg/2 Ml Vial IV PUSH 4 mg Q4H PRN Administration Nausea Pantoprazole Sodium 40 mg 08/23/22 09:00 08/24/22 09:24 Pantoprazole Sodium Iv 40 Mg Vial IV PUSH 40 mg QAM FOREIGN Administration Radiology Results: ITS Impressions Abdomen/Pelvis CT 08/22/22 08:28 IMPRE
[2022-08-24] MEDS: SODIUM CHLORIDE 0.9% IV 1,000 ML 80 ML IV CONT (11:24)
[2022-08-24 14:00] VITALS: BP 154/72; PULSE 100; RESP 20; TEMP 37.1; O2SAT 98
--- NOTE | 2022-08-24 16:18 | PM.IMPN ---
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: Code(s): C56.2 - Malignant neoplasm of left ovary; C80.0 - Disseminated malignant neoplasm, unspecified Status: Acute (3) Constipation: Code(s): K59.00 - Constipation, unspecified Status: Acute (4) Essential (primary) hypertension: Code(s): I10 - Essential (primary) hypertension Status: Acute (5) Asthma: Qualifiers: Asthma complication type: uncomplicated Asthma persistence: persistent Asthma severity: unspecified severity Qualified Code(s): J45.909 - Unspecified asthma, uncomplicated Code(s): J45.909 - Unspecified asthma, uncomplicated Status: Acute (6) Hypothyroidism (acquired): Code(s): E03.9 - Hypothyroidism, unspecified Status: Acute Plan The patient presented to the emergency department today for evaluation of worsening abdominal pain over the last month as well as constipation. CT scan shows evidence of small-bowel obstruction which may be related to adhesions or metastatic disease however a large amount of stool was also noted throughout the colon. She has been seen by surgery and they recommend conservative treatment for now including NG tube decompression and bowel rest. Analgesics and antiemetics are available as needed. She will need to be on a good bowel regimen on discharge. She is receiving chemotherapy today though not through her port as it was not working. Her labs were reviewed and they are reassuring. She will be cautiously hydrated with close monitoring of volume status. No acute issues with regards to her asthma. Her home medications will be held as she is NPO, continue inhalers. 08/23/22 abd very tender will f/u w surgery morphine IV leukocytosis resolving cont conservative therapy IVFs NGT NPO corrected Ca 8.3 supportive care 08/24/22 Serial x-ray showing persistent dilated small bowel consistent with adynamic ileus versus partial small-bowel obstruction. CT of the abdomen pelvis on admission showed small-bowel obstruction with transition point in the lower abdomen at the midline as well as small volume of ascites with peritoneal carcinomatosis. NG tube secured. General surgery is following along and appreciate their input. Potassium is low so will adjust her IV fluids. Blood pressure mildly elevated but felt related to pain. Will have the patient up walking as she tolerates. Monitor WBC. Subjective Date/time seen: 08/24/22 16:18 Interval history: 76yo female with metastatic ovarian CA undergoing chemo tx, HTN and asthma here for abdominal pain. Assuming care. Chart reviewed. Patient complains of a dry mouth. Abdominal pain waxes and wanes. She is passing flatus but no bowel movements. She is having nausea with dry heaves. NG tube is in place. Exam Narrative: AF 98.7 154/72 100 20 98% ra Gen - NARD HEENT - NGT secured draining yellowish brown fluid Chest - lungs clear anteriorly except decreased BS in the right flank CV - RRR S1/S2 Abd - Soft, mildly distended and diffusely tender. +BS Ext - No pedal edema Psych - Nml mood and affect Skin - Warm and dry Objective Data Vital Signs Vital Signs: Vital Signs - 24 hr 08/23/22 22:00 08/23/22 21:43 08/24/22 06:00 Temperature 97.8 F 98.4 F Pulse Rate 102 H 98 Respiratory Rate 18 18 Blood Pressure 132/53 L 135/55 L Pulse Oximetry 96 97 Oxygen Delivery Room Air 08/24/22 08:40 08/24/22 14:00 Temperature 98.7 F Pulse Rate 100 Respiratory Rate 20 Blood Pressure 154/72 H Pulse Oximetry 90 98 Oxygen Delivery Room Air Intake/Output Intake/Output: Intake & Output 08/21/22 08/22/22 08/23/22 08/24/22 23:59 23:59 23:59 23:59 Intake Total 2200 2200 1000
[2022-08-24] MEDS: KCL 40 MEQ/D5/0.9% SOD CHL 1,000 ML 80 ML IV CONT (18:36)
[2022-08-24 20:00] VITALS: PULSE 101; RESP 16; O2SAT 96
[2022-08-24] MEDS: FLUTICASONE/SALMETEROL 45-21 MCG INHALER 1 PUFF 2 PUFF INHALATION (20:34)
[2022-08-24 20:36] VITALS: PULSE 101; RESP 16; O2SAT 96
[2022-08-24 21:49] VITALS: BP 131/61; PULSE 99; RESP 20; TEMP 36.9; O2SAT 98
--- NOTE | 2022-08-24 22:09 | PC.NURSE ---
While taking pt to restroom NG tube was accidentally removed due to not being properly secured. No distress from pt noted. Christi Nuñez was informed and would like new NG tube to be placed at this time. Savannah explained that if NG tube is unable to be placed tonight it will have to be done tomorrow with fluoroscopy.
--- NOTE | 2022-08-25 02:39 | PC.NURSE ---
New Ng placed in right nare by Jennifer gutierrez RN. KUB ordered and obtained. NG not currently hooked up to suction due to KUB not being read yet. NG to be hooked up to suction once placement is confirmed.
[2022-08-25] MEDS: MORPHINE SULFATE (*CRX) 2 MG/ML INJ IV PUSH ×5 (02:46→20:25)
[2022-08-25] MEDS: KCL 40 MEQ/D5/0.9% SOD CHL 1,000 ML 80 ML IV CONT (05:49)
[2022-08-25] MEDS: LEVOTHYROXINE SODIUM INJ 100 MCG/5 ML VIAL 50 MCG IV PUSH (05:49)
[2022-08-25 06:00] VITALS: BP 150/64; PULSE 88; RESP 20; TEMP 36.4; O2SAT 96
[2022-08-25 06:46] LABS: Basophils Percent Auto 0.3 % (0.2-1.2); Eosinophils Absolute Auto 0.2 K/mm3 (0-0.3); Eosinophils Percent Auto 2.2 % (0-4.4); Hematocrit 30.4 % (37.0-47.0); Hemoglobin 9.9 g/dL (12.0-15.0); Immature Granulocyte Absolute 0.04 K/mm3 (0.00-0.031); Immature Granulocyte Percent A 0.5 % (0-0.5); Lymphocytes Absolute Auto 1.38 K/mm3 (0.9-3.2); Lymphocytes Percent Auto 16.1 % (18.3-44.2); Mean Corpuscular HGB Conc 32.6 g/dl (32-36); Mean Corpuscular Hemoglobin 32.6 pg (26-34); Mean Platelet Volume 8.6 fl (7.4-10.4); Monocytes Absolute Auto 0.4 K/mm3 (0.1-0.6); Monocytes Percent Auto 4.3 % (2.6-8.5); Neutrophils Absolute Auto 6.6 K/mm3 (1.3-6.7); Neutrophils Percent Auto 76.6 % (45.5-73.1); Platelet Count Result 227 k/mm3 (150-375); Red Blood Count 3.04 M/mm3 (4.2-5.4); Red Cell Distribution Width 14.7 % (11.5-14.5); White Blood Count 8.6 K/mm3 (4.5-10.0)
[2022-08-25 06:55] LABS: Alanine Aminotransferase 13 U/L (6-35); Albumin Level 2.9 g/dL (3.5-5.1); Alkaline Phosphatase 75 U/L (38-126); Anion Gap 9 mmol/L (8-16); Aspartate Amino Transferase 22 U/L (14-36); Bilirubin,Total 0.4 mg/dL (0.2-1.3); Blood Urea Nitrogen 5 mg/dL (7-17); Calcium 7.6 mg/dL (8.4-10.2); Carbon Dioxide 24 mmol/L (22-30); Chloride 107 mmol/L (98-107); Estimated Glomerular Filt Rate > 60; Glucose 116 mg/dL (65-110); Phosphorus 2.2 mg/dL (2.5-4.5); Potassium 3.6 mmol/L (3.4-5.0); Sodium 140 mmol/L (137-145)
[2022-08-25] MEDS: FLUTICASONE/SALMETEROL 45-21 MCG INHALER 1 PUFF 2 PUFF INHALATION ×2 (07:57→21:23)
[2022-08-25 07:58] VITALS: O2SAT 96
[2022-08-25] MEDS: PANTOPRAZOLE SODIUM IV 40 MG VIAL IV PUSH (09:00)
[2022-08-25] MEDS: ENOXAPARIN 40 MG/0.4 ML SYRINGE SUB-Q (09:00)
[2022-08-25] MEDS: FLUTICASONE PROPIONATE 0.05% NA SPR 16 GM BTL (*BKC) 1 SPRAY NASAL (09:00)
[2022-08-25] MEDS: ONDANSETRON INJ 4 MG/2 ML VIAL IV PUSH ×3 (09:25→20:25)
--- NOTE | 2022-08-25 10:15 | PM.PNGS ---
Progress Note: A&P Assessment and Plan (1) Small bowel obstruction: Code(s): K56.609 - Unspecified intestinal obstruction, unspecified as to partial versus complete obstruction Status: Acute Assessment and Plan: Gastrografin SBFT yesterday suggested partial small bowel obstruction but with contrast moving through to the colon in 2 hrs 45 min. This seems to be resolving, although she is still having some abdominal pain. Will add IV Tylenol for her pain today. Will remove the NG tube and start clear liquids. Encouraged being up today and walking the halls (2) Immunosuppression due to drug therapy: Code(s): D84.821 - Immunodeficiency due to drugs; Z79.899 - Other terminologist (current) drug therapy Status: Acute (3) Ovarian cancer: Code(s): C56.9 - Malignant neoplasm of unspecified ovary Status: Acute Plan I have discussed the patient's case and plan of care with Dr. Johansen. Subjective Subjective Date/Time Seen: 08/25/22 09:15 Patient reports: no new complaints, feels better, still having pain, voiding w/o difficulty, flatus, bowel movement and afebrile Interval history: Patient seen and examined. Her NG tube was removed earlier this morning. She denies any nausea or vomiting. She has been passing lots of flatus since her Gastrografin study yesterday and has had at least 2 bowel movements that she can recall last night and this morning. She is still having abdominal pain, requiring IV morphine overnight and this morning. She does feel her pain has improved though over the past few days. Review of Systems Review of Systems: All systems reviewed & are unremarkable except as noted in HPI and below Exam Const: General: no acute distress and awake Orientation/consciousness: patient oriented x3 GI: Inspection: non-distended and no visible herniation GI Palp: Yes Soft to palpation, Yes Tenderness to palpation present (GI) (still diffusely tender throughout), No Guarding due to palpation present (GI) and No Rebound tenderness present Auscultation: normal bowel sounds Psych: Mental Status: mental status grossly normal Insight: Good insight present (Psych) Objective Data Vital Signs Vital Signs: Vital Signs - 24 hr 08/24/22 14:00 08/24/22 20:36 08/24/22 20:00 Temperature 98.7 F Pulse Rate 100 101 H 101 H Respiratory Rate 20 16 16 Blood Pressure 154/72 H Pulse Oximetry 98 96 96 Oxygen Delivery Room Air Room Air 08/24/22 21:49 08/25/22 06:00 08/25/22 07:58 Temperature 98.4 F 97.6 F Pulse Rate 99 88 Respiratory Rate 20 20 Blood Pressure 131/61 150/64 H Pulse Oximetry 98 96 96 Oxygen Delivery Room Air Intake/Output Intake/Output: Intake & Output 08/22/22 08/23/22 08/24/22 08/25/22 23:59 23:59 23:59 23:59 Intake Total 2200 2200 1500 1000 Output Total 50 1250 2150 Balance 2150 950 -650 1000 Meds/Results Medications: Active Medications Generic Name Dose Route Start Last Admin Trade Name Freq PRN Reason Stop Dose Admin Albuterol 1 puff 08/22/22 20:31 Albuterol Sulfate (*Sp) Aerosol 1 Puff INHALATION Q4H PRN Dyspnea Benzocaine 1 lozenge 08/23/22 04:14 08/24/22 09:24 Benzocaine/Menthol (*Bkc) 18 Ea Lozenge PO 1 lozenge PRN PRN Administration Sore Throat Enoxaparin Sodium 40 mg 08/24/22 09:00 08/25/22 09:00 Enoxaparin 40 Mg/0.4 Ml Syringe SUB-Q 40 mg DAILY FOREIGN Administration Fluticasone Propionate 1 spray 08/22/22 20:31 08/25/22 09:00 Fluticasone Propionate 0.05% Na Spr 16 Gm Btl (*Bkc) NASAL 1 spray DAILY PRN Administration Congestion Potassium Chloride/Dextrose/Sod Cl 1,000 mls @ 80 mls/hr 08/24/22 17:55 08/25/22 05:49 Kcl 40 Meq/D5ns IV CONT 80 mls/hr .[id number] FOREIGN Administration Levothyroxine Sodium 50 mcg 08/23/22 06:30 08/25/22 05:49 Levothyroxine Sodium Inj 100 Mcg/5 Ml Vial IV PUSH 50 mcg DAILY@0630 FOREIGN Administration Morphine Sulfate 2 mg
--- NOTE | 2022-08-25 12:57 | PM.IMPN ---
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: Code(s): C56.2 - Malignant neoplasm of left ovary; C80.0 - Disseminated malignant neoplasm, unspecified Status: Acute (3) Constipation: Code(s): K59.00 - Constipation, unspecified Status: Acute (4) Essential (primary) hypertension: Code(s): I10 - Essential (primary) hypertension Status: Acute (5) Asthma: Qualifiers: Asthma complication type: uncomplicated Asthma persistence: persistent Asthma severity: unspecified severity Qualified Code(s): J45.909 - Unspecified asthma, uncomplicated Code(s): J45.909 - Unspecified asthma, uncomplicated Status: Acute (6) Hypothyroidism (acquired): Code(s): E03.9 - Hypothyroidism, unspecified Status: Acute Plan The patient presented to the emergency department today for evaluation of worsening abdominal pain over the last month as well as constipation. CT scan shows evidence of small-bowel obstruction which may be related to adhesions or metastatic disease however a large amount of stool was also noted throughout the colon. She has been seen by surgery and they recommend conservative treatment for now including NG tube decompression and bowel rest. Analgesics and antiemetics are available as needed. She will need to be on a good bowel regimen on discharge. She is receiving chemotherapy today though not through her port as it was not working. Her labs were reviewed and they are reassuring. She will be cautiously hydrated with close monitoring of volume status. No acute issues with regards to her asthma. Her home medications will be held as she is NPO, continue inhalers. 08/23/22 abd very tender will f/u w surgery morphine IV leukocytosis resolving cont conservative therapy IVFs NGT NPO corrected Ca 8.3 supportive care 08/24/22 Serial x-ray showing persistent dilated small bowel consistent with adynamic ileus versus partial small-bowel obstruction. CT of the abdomen pelvis on admission showed small-bowel obstruction with transition point in the lower abdomen at the midline as well as small volume of ascites with peritoneal carcinomatosis. NG tube secured. General surgery is following along and appreciate their input. Potassium is low so will adjust her IV fluids. Blood pressure mildly elevated but felt related to pain. Will have the patient up walking as she tolerates. Monitor WBC. 08/25/22 x-ray today shows no dilated bowel loops. NG tube was removed. Clear liquid diet has been started. White count has normalized. Electrolytes stable. Phosphorus is slightly low which will replace. Resume some of her home medications. Chest x-ray results noted and probably related to atelectasis. Encouraged her to be out of bed. Subjective Date/time seen: 08/25/22 12:57 Interval history: 76yo female with metastatic ovarian CA undergoing chemo tx, HTN and asthma here for abdominal pain. NG tube was removed this morning. She is having bowel movements. No melena or hematochezia. She still has the abdominal pain. She has not taken anything in but water since NG tube was removed. No nausea or vomiting. She is up walking to the bathroom. Exam Narrative: AF 97.6 150/64 88 20 96% ra Gen - NARD Chest - lungs clear anteriorly except decreased BS in the right flank CV - RRR S1/S2 Abd - Soft. Less distended. Diffusely tender. Positive bowel sounds. Ext - No pedal edema Psych - Depressed mood Skin - Warm and dry Objective Data Vital Signs Vital Signs: Vital Signs - 24 hr 08/24/22 14:00 08/24/22 20:36 08/24/22 20:00 Temperature 98.7 F Pulse Rate 100 101 H 101 H Respiratory Rate 20 16 16 Blood Pressure 154/72 H Pulse Oximetry
[2022-08-25 14:00] VITALS: BP 121/58; PULSE 93; RESP 14; TEMP 36.1; O2SAT 97
[2022-08-25] MEDS: POTASSIUM/PHOSPHORUS/SODIUM 1.5 GM PACKET 1 PACKET PO (15:12)
[2022-08-25] MEDS: SERTRALINE HCL 25 MG TABLET PO (15:12)
--- NOTE | 2022-08-25 16:37 | PC.NURSE ---
This RN called report to LALY Ingram with [facility]. Report called to [phone] per Anitha with transfer center. Patient accepted to room [address] Baptiste is the admitting physician.
--- NOTE | 2022-08-25 17:26 | PM.TDS ---
Transfer Discharge Sum: Prov Provider Date of admission: 08/22/22 12:26 Primary care physician: Jose R Colin MD Admitting clinician: Eros Medel MD Consults: 08/22/22 Consult to Physician Routine Comment: Consulting Provider: Jayant Johansen Reason for consultation: SBO Has provider been notified: Yes Receiving physician/facility: [facility] DS: Admitting Diagnosis Discharge Date 08/25/22 Admitting Diagnosis Abdominal pain DS: Discharge Diagnosis Discharge Diagnosis (1) Small bowel obstruction: Code(s): K56.609 - Unspecified intestinal obstruction, unspecified as to partial versus complete obstruction Status: Acute (2) 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: Code(s): C56.2 - Malignant neoplasm of left ovary; C80.0 - Disseminated malignant neoplasm, unspecified Status: Acute (3) Constipation: Code(s): K59.00 - Constipation, unspecified Status: Acute (4) Essential (primary) hypertension: Code(s): I10 - Essential (primary) hypertension Status: Acute (5) Asthma: Qualifiers: Asthma complication type: uncomplicated Asthma persistence: persistent Asthma severity: unspecified severity Qualified Code(s): J45.909 - Unspecified asthma, uncomplicated Code(s): J45.909 - Unspecified asthma, uncomplicated Status: Acute (6) Hypothyroidism (acquired): Code(s): E03.9 - Hypothyroidism, unspecified Status: Acute Transfer Discharge Sum: Med Medications Active and Home Medications: Home Medications albuterol sulfate 90 mcg/actuation aerosol inhaler (ProAir HFA) 1 puff inhalation Q4H PRN Dyspnea 12/17/19 [History Confirmed 08/22/22] bacillus coagulans-inulin 1 billion cell-250 mg capsule (Probiotic Formula (inulin)) 1 cap PO DAILY 12/17/19 [History Confirmed 08/22/22] multivitamin,tx-minerals (Vitamins and Minerals tablet) 1 tablet PO DAILY 12/17/19 [History Confirmed 08/22/22] vitamin B complex 1 cap PO DAILY 12/17/19 [History Confirmed 08/22/22] calcium 600 mg capsule 600 mg PO DAILY 02/25/21 [History Confirmed 08/22/22] fluticasone propionate 50 mcg/actuation nasal spray,suspension (Flonase Allergy Relief) 1 spray intranasal PRN PRN Congestion 02/25/21 [History Confirmed 08/22/22] magnesium amino acid chelate 100 mg tablet 100 mg PO DAILY 04/05/22 [History Confirmed 08/22/22] sertraline 25 mg tablet (Zoloft) 25 mg PO QAM #90 tabs 04/19/22 [Rx Confirmed 08/22/22] hydrochlorothiazide 25 mg tablet 25 mg PO DAILY #90 tabs 05/23/22 [Rx Confirmed 08/22/22] cetirizine 10 mg tablet (Wal-Zyr (cetirizine)) 10 mg PO DAILY PRN allergy symptoms #90 tabs 07/18/22 [Rx Confirmed 08/22/22] celecoxib 200 mg capsule 200 mg PO Q12H #180 caps 08/08/22 [Rx Confirmed 08/22/22] levothyroxine 100 mcg tablet 100 mcg PO QAM #90 tabs 08/08/22 [Rx Confirmed 08/22/22] doxorubicin, peg-liposomal 2 mg/mL intravenous suspension (Doxil) 2 mg IV .[id number] 08/18/22 [History Confirmed 08/22/22] gabapentin 100 mg capsule 300 mg PO QHS 08/18/22 [History Confirmed 08/22/22] methocarbamol 500 mg tablet 500 mg PO BID 08/18/22 [History Confirmed 08/22/22] omeprazole 40 mg capsule,delayed release 40 mg PO DAILY 08/18/22 [History Confirmed 08/22/22] potassium chloride 10 mEq capsule,extended release 10 meq PO DAILY #90 caps 08/19/22 [Rx Confirmed 08/22/22] fluticasone 100 mcg-salmeterol 50 mcg/dose blistr powdr for inhalation (Advair Diskus) 1 inh inhalation Q12H PRN Shortness Of Breath Or Wheezing 08/22/22 [History Confirmed 08/22/22] lactulose 10 gram oral packet (Kristalose) 10 g PO DAILY 08/22/22 [History Confirmed 08/22/22] linaclotide 145 mcg capsule (Linzess) 145 mcg PO DAILY 3 months #90 caps 08/22/22 [Rx Confirmed 08/22/22] Active Medications Albuterol (Albuterol Sulfate (*Sp) Aerosol 1 Puff) 1 puff INHALATION Q4H PRN PRN Reason: Dyspnea Benzocaine (Benzocaine/Menthol (*Bkc) 18 Ea Lozenge) 1 lozenge PO PRN PRN PRN Re
[2022-08-25] MEDS: MORPHINE SULFATE (*CRX) 4 MG/ML INJ IV PUSH (17:46)
[2022-08-25] MEDS: GABAPENTIN 300 MG CAPSULE PO (20:25)
[2022-08-25 20:37] VITALS: BP 119/59; PULSE 91; RESP 16; TEMP 37; O2SAT 97
[2022-08-25 21:18] VITALS: BP 119/59; PULSE 91; RESP 16; TEMP 37; O2SAT 97
[2022-08-25 21:37] VITALS: O2SAT 96
== END 2022-08-25 22:00 | disposition short-term general hospital (02) | DRG 389 ==
LOC: ANHED 09:27 → ANH3MEDSUR 10:51
PROVIDERS: Nurse Practitioner Family; Physician Assistant; Admitting Provider Internal Medicine; Emergency Provider Emergency Medicine; PCP Family Medicine; Visit Provider Internal Medicine
DX: K56.609 Unspecified intestinal obstruction, unspecified as to partial versus complete obstruction (principal); C56.2 Malignant neoplasm of left ovary; C78.6 Secondary malignant neoplasm of retroperitoneum and peritoneum; D84.821 Immunodeficiency due to drugs; K58.1 Irritable bowel syndrome with constipation; I10 Essential (primary) hypertension; E03.9 Hypothyroidism, unspecified; J45.909 Unspecified asthma, uncomplicated; K21.9 Gastro-esophageal reflux disease without esophagitis; G89.29 Other chronic pain; M19.012 Primary osteoarthritis, left shoulder; M54.2 Cervicalgia; M54.9 Dorsalgia, unspecified; F41.9 Anxiety disorder, unspecified; F32.A Depression, unspecified; Z20.822 Contact with and (suspected) exposure to COVID-19; R79.89 Other specified abnormal findings of blood chemistry; Z79.632 Long term (current) use of antitumor antibiotic; Z90.79 Acquired absence of other genital organ(s); Z96.652 Presence of left artificial knee joint; Z90.49 Acquired absence of other specified parts of digestive tract; Z92.21 Personal history of antineoplastic chemotherapy
CPT/HCPCS: 36415; 71045; 72148; 74019; 74177; 74250; 80048; 80053; 81001; 83605; 83690; 83735; 84100; 84443; 85025; 85027; 94640; 96361; 96365; 96375; 99285; A9270; C9113; G0378; J0131; J1650; J2270; J2405; J3480; J7030; Q9967; U0003; U0005

== ENCOUNTER 2022-11-03 12:36 | Outpatient (CLI) | payer MEDICARE, OTHER, SELFPAY ==
--- NOTE | ~2022-11-03 | CT_ITS ---
EXAMINATION: CTA chest PE protocol DATE: 11/03/2022 13:18 INDICATION: High probability of pulmonary embolism. Shortness of breath. TECHNIQUE: Computed tomography (CT) pulmonary angiogram of the chest was performed with 100 mL Omnipa que-350 intravenous contrast. Additional 3D reconstructions utilizing coronal maximum intensity proje ction (MIP) were performed. Automated exposure control and iterative reconstruction technique were em ployed. The dose-length product was 170.35 mGy-cm. COMPARISON: None FINDINGS: Excellent contrast opacification of the pulmonary arteries. There is mild streak artifact from dense contrast in the superior vena cava and right atrium. Mild scattered respiratory motion artifact which does not significantly limit evaluation. No pulmonary embolism. Moderate-sized right pleural effusio n. Compressive atelectasis and partial collapse of the dependent right lower lobe. Additional mild at electasis in the right middle lobe. No pneumonia, pulmonary edema, pneumothorax or left-sided pleural effusion. Heart size is normal. No pericardial effusion. Thoracic aorta is normal in caliber with no dissection. No pathologically enlarged thoracic lymphadenopathy. 1.5 cm cyst at the upper pole of th e right kidney. Cholecystectomy clips the gallbladder fossa. Partially visualized lower cervical ante rior spinal fusion with interbody bone graft cages at and C5-C6 and C6-C7 with associated anterior pl ate-screw fixation. Mild upper thoracic levoscoliosis. Moderate to severe spondylosis in the mid thor acic to the upper lumbar spine. T5 bone island. IMPRESSION: 1. No pulmonary embolism. 2. Moderate-sized right pleural effusion with partial collapse of the right lower lobe and additional atelectasis in the right middle lobe. Reviewed, dictated and finalized at location A. [employer] IMPRESSION: 1. No pulmonary embolism. 2. Moderate-sized right pleural effusion with partial collapse of the right low er lobe and additional atelectasis in the right middle lobe.
[2022-11-03 13:12] LABS: Estimated Glomerular Filt Rate > 60
== END 2022-11-03 12:37 | disposition home or self-care (01) ==
PROVIDERS: PCP Family Medicine; Visit Provider Family Medicine
DX: R06.02 Shortness of breath (principal); J90 Pleural effusion, not elsewhere classified; J98.19 Other pulmonary collapse
CPT/HCPCS: 71275; Q9967